=== PATIENT | female | born 1990 | race Caucasian/White ===

== ENCOUNTER → 2020-11-10 11:46 | Outpatient (CLI) | payer OTHER, SELFPAY | PROVIDERS: Referring Provider Specialist; Visit Provider Specialist | DX: N97.0 Female infertility associated with anovulation (principal) | CPT/HCPCS: 36415; 84144 ==

== ENCOUNTER → 2021-10-20 12:39 | Outpatient (CLI) | payer OTHER, SELFPAY ==
--- NOTE | 2021-10-20 12:39 | DI.RAD.S_ITS ---
PROCEDURE: HL HYSTEROSAPINGOGRAPHY INDICATIONS: Infertility COMPARISON: None. FINDINGS: Patient had a documented negative test prior to the study. Following speculum insertion, a balloon-tip catheter was inserted into the cervical canal, and secured by inflating the balloon. Contrast was then injected into the endometrial canal. Uterus: The uterine cavity appears normal in size and morphology, without synechiae or masses. Fallopian tubes: Both fallopian tubes fill with contrast, and appear normal in caliber and morphology. There is ready dispersion of contrast into the peritoneal cavity. IMPRESSION: Normal examination. Dictated by: Laura Jara MD, PhD on 10/20/2021 at 14:19 Approved by: Laura Jara MD, PhD on 10/20/2021 at 14:20
--- NOTE | 2021-10-20 13:21 | PM.PROC.1 ---
Procedures Date/Time Date of procedure: 10/20/21 Time of procedure: 13:22 General Procedure description: Procedure: Hysterosalpingogram Patient is to undergo a hysterosalpingogram for infertility. The procedure was discussed, risks discussed, infection or reaction to the dye contrast. Consent form signed. The patient was placed on an over turned bed gamble and a speculum placed in the vagina. The cervix was cleaned with iodine. The infusion catheter was placed through the cervix into the uterus without difficulty and the balloon inflated with 2 cc of air. With the radiologist's doing fluoroscopy the dye contrast was injected, approximately 10 cc. The catheter was removed. The patient tolerated the procedure well. Complications: none
== END ==
PROVIDERS: PCP Registered Nurse Diabetes Educator; Referring Provider Specialist; Visit Provider Specialist
DX: N97.9 Female infertility, unspecified (principal)
CPT/HCPCS: 58340; 74740

== ENCOUNTER → 2021-12-06 09:00 | Outpatient (CLI) | payer OTHER, SELFPAY ==
--- NOTE | 2021-12-06 09:01 | DI.ECHO.S_ITS ---
[facility] +---------+ : : [address] : [place] : : : : [id number] : : : : Phone: [phone] Echocardiogram Report + + :Name: PALLAVI RUEDA Study Date: 12/06/2021 Height: 61.5 in: :[facility] ReadingLocation: Weight: 163 lb : : Gender: Female BSA: 1.7 m2 : :: 1990 Age: 31 yrs BP: 125/86 mmHg: :Reason For Study: RE-EVAL MVP (5 YEAR SURVEILLANCE ECHO) : :Ordering Physician: CLIFFORD, : :HIMA Performed By: Brit Christian : :Referring: HIMA HORTON : + + Interpretation Summary The ejection fraction is estimated to be 60-65%. Diastolic parameters suggest probable normal left ventricular diastolic function and normal filling pressures. The right ventricle is normal in size and function. Mitral valve is normal without evidence of prolapse. Unable to estimate PASP. Procedure: A two-dimensional transthoracic echocardiogram with color flow and Doppler was performed. The study quality was technically adequate. There is no prior echocardiogram noted for this patient. The patient was in sinus rhythm with heart rates between 60-75 bpm during the exam. Left Ventricle: The left ventricle is normal in size and wall thickness. The ejection fraction is estimated to be 60-65%. Diastolic parameters suggest probable normal left ventricular diastolic function and normal filling pressures. Right Ventricle: The right ventricle is normal in size and function. Atria: The left atrial size is normal. Right atrial size is normal. There is no Doppler evidence for an interatrial shunt. Mitral Valve: The mitral valve is normal. There is trace mitral regurgitation. Aortic Valve: The aortic valve is trileaflet. The aortic valve opens well. There is no aortic valve stenosis. No aortic regurgitation is present. Tricuspid Valve: The tricuspid valve is normal in structure and function. There is a trace or physiologic amount of tricuspid regurgitation. Pulmonic Valve: The pulmonic valve leaflets are thin and pliable; valve motion is normal. There is mild pulmonic regurgitation. Great Vessels: The aortic root is normal size. The dimensions of the ascending aorta are normal. The IVC is of normal diameter and collapses greater than 50% with a sniff. This suggests a low right atrial pressure of 3 mm Hg. Pericardium/ Pleura There is no pericardial effusion. There is no pleural effusion. MMode/2D Measurements & Calculations LVIDd: 4.6 cm LVOT diam: 1.9 cm LVIDs: 2.7 cm Ao root diam: 2.6 cm FS: 40.6 % asc Aorta Diam: 2.7 cm IVSd: 0.55 cm Ao Arch Diam (Prox Trans): 2.6 cm LVPWd: 0.60 cm LV peters. diameter/BSA (cm/m^2): 2.7 LV sys. diameter/BSA (cm/m^2): 1.6 LA A2 area: 17.1 cm2 RA long axis: 4.2 cm LA A4 area: 15.4 cm2 RA area: 12.8 cm2 LA length (vol): 5.2 cm RA vol: 32.8 ml LA vol: 42.7 ml RA : 18.8 ml/m2 LA vol index: 24.5 ml/m2 IVC diam: 1.2 cm RVD1 (basal): 3.5 cm RVD2 (mid): 2.5 cm TAPSE: 1.8 cm Doppler Measurements & Calculations Ao V2 max: 167.5 cm/sec LVOT Max Eugenio: 97.4 cm/sec Ao V2 mean: 109.6 cm/sec LV V1 max P.8 mmHg Ao max P.2 mmHg LV V1 VTI: 19.2 cm Ao mean P.5 mmHg NOA(I,D): 1.6 cm2 Ao V2 VTI: 33.0 cm NOA(V,D): 1.6 cm2 sev ratio: 0.58 NOA indexed to BSA (cm^2/m^2): 0.90 MV E max eugenio: 94.4 cm/sec PA V2 max: 105.0 cm/sec MV A max eugenio: 45.0 cm/sec PA V2 mean: 73.3 cm/sec MV E/A: 2.1 PA mean P.4 mmHg Med Peak E' Eugenio: 10.9 cm/sec PA pr(Accel): 8.8 mmHg E/E' med: 8.7 Lat Peak E' Eugenio: 16.4 cm/sec E/E' lat: 5.8 E/e' average: 7.2 MV dec time: 0.17 sec SV(LVOT): 51.8 ml Reading Physician:11:42 AM
== END ==
PROVIDERS: PCP Registered Nurse Diabetes Educator; Referring Provider Registered Nurse Diabetes Educator; Visit Provider Registered Nurse Diabetes Educator
DX: I34.1 Nonrheumatic mitral (valve) prolapse (principal)
CPT/HCPCS: 93306

== ENCOUNTER → 2021-12-13 17:26 | Outpatient (CLI) | payer OTHER, SELFPAY ==
[2021-12-13 17:54] LABS: Add Manual Diff / Slide Review NO; Basophils Absolute Auto 0 /uL (0-100); Basophils Percent Auto 0.4 % (0-2); Eosinophils Absolute Auto 0 /uL (0-450); Eosinophils Percent Auto 0.2 % (2-4); Hematocrit 37.7 % (36-46); Hemoglobin 13.1 g/dL (12.0-16.0); Lymphocytes Absolute Auto 2500 /uL (1100-4500); Lymphocytes Percent Auto 22.3 % (25-40); Mean Corpuscular HGB Conc 34.8 % (30-36); Mean Corpuscular Hemoglobin 30.9 PG (26-34); Mean Corpuscular Volume 88.6 fL (80-100); Monocytes Absolute Auto 600 /uL (0-900); Monocytes Percent Auto 5.5 % (3-14); Neutrophils Absolute Auto 8200 /uL (1500-7000); Neutrophils Percent Auto 71.6 % (50-75); Platelet Count 271 X10^3/uL (150-400); Red Blood Cell Count 4.25 X10^6/uL (4.0-5.2); White Blood Cell Count 11.4 X10^3/uL (4.5-11.0)
[2021-12-13 19:01] LABS: HCG Quantitative /Beta subunit 97319 mIU/mL
[2021-12-14 05:53] LABS: RPR Screen Non Reactive (Non Reactive)
[2021-12-14 11:25] LABS: Varicella IgG Antibody 953 index (Immune >165)
[2021-12-14 16:46] LABS: Hepatitis B Surface Antigen NEGATIVE s/c (NEGATIVE); Rubella Antibody IgG 5.4 IU/mL (>15)
[2021-12-14 17:04] LABS: HIV 1 & 2 Ab/Ag 4th Gen Combo NEGATIVE (NEGATIVE); Hep C Virus Ab w/Reflex Quant NEGATIVE s/c (NEGATIVE)
== END ==
PROVIDERS: PCP Registered Nurse Diabetes Educator; Referring Provider Family Medicine; Visit Provider Family Medicine
DX: O20.9 Hemorrhage in early pregnancy, unspecified (principal); Z87.59 Personal history of other complications of pregnancy, childbirth and the puerperium
CPT/HCPCS: 36415; 80055; 84702; 86787; 86803; 86850; 86900; 86901; 87389

== ENCOUNTER → 2021-12-15 08:32 | Outpatient (CLI) | payer OTHER, SELFPAY ==
[2021-12-15 09:40] LABS: Appearance Urine UA CLOUDY; Bilirubin Urine UA NEGATIVE (NEGATIVE); Color Urine UA YELLOW; Glucose Urine UA NEGATIVE (Negative); Ketones Urine UA NEGATIVE (NEGATIVE); Leukocyte Esterase Urine UA TRACE (NEGATIVE); Nitrite Urine UA NEGATIVE (Negative); Occult Blood Urine UA TRACE-LYSED (Negative); Protein Urine UA NEGATIVE (Negative); Specific Gravity Urine UA 1.015 (1.000-1.035); Urobilinogen Urine UA 0.2 E.U./dL (0.2)
[2021-12-15 09:50] LABS: Amorphous Sediment Urine 3+; Bacteria Urine None Seen; RBC Urine 0-1/HPF (0-5/HPF); WBC Urine 0-1/HPF (0-5/HPF)
[2021-12-15 10:50] LABS: HCG Quantitative /Beta subunit 109790 mIU/mL
== END ==
PROVIDERS: PCP Registered Nurse Diabetes Educator; Referring Provider Family Medicine; Visit Provider Family Medicine
DX: O20.0 Threatened abortion (principal)
CPT/HCPCS: 36415; 81003; 81015; 84702; 87086

== ENCOUNTER 2021-12-16 11:26 | Emergency (ER) | payer OTHER, SELFPAY ==
[2021-12-16 11:36] VITALS: BP 124/83; PULSE 81; RESP 16; TEMP 36.7; O2SAT 98; BMI 30.2
--- NOTE | 2021-12-16 11:45 | DI.US.S_ITS ---
PROCEDURE: US OB <= 14 WEEKS FETUS INDICATIONS: BLEEDING OUTSIDE/PRIOR DATING DATA: Last menstrual period (LMP): 10/19/2021. LMP-based estimated date of delivery (YADY): 07/26/2022. First dating scan (date and location): 12/16/2021. Estimated date of delivery (YADY) from first dating scan: 07/25/2022. The calculations are made using the ultrasound YADY of 07/25/2022. TECHNIQUE: Real-time scanning was performed of the fetus and maternal pelvic organs, with image documentation. Endovaginal scanning was also performed to better visualize the fetus and maternal ovaries. COMPARISON: None. FINDINGS: Embryo: An early intrauterine is seen with a yolk sac present. heart rate is 169. [place]-rump length is 1.9 cm corresponding with 8 weeks 3 days. There is a subchorionic hemorrhage measuring 1.4 x 0.4 x 1.4 cm. Heart rate: 169 beats per minute Maternal organs: The right ovary is normal. The left ovary has a corpus luteal cyst. IMPRESSION: 1. Single live intrauterine with an estimated gestational age of 8 weeks 3 days. 2. 1.4 x 0.4 x 1.4 centimeter subchorionic hemorrhage. We strive to produce accurate, complete, and clear reports of imaging services. To assist us in improving patient care, this report was composed using standard report templates and voice recognition software. Therefore, it may contain abnormal punctuation, insertions and/or omissions. Occasional wrong-word or sound-alike substitutions may occur. Though we review the report and make efforts to correct it, we do recommend that the report be read carefully in proper context to recognize any text inaccuracies. Dictated by: Salvador Villatoro M.D. on 12/16/2021 at 12:11 Approved by: Salvador Villatoro M.D. on 12/16/2021 at 12:14
[2021-12-16 12:15] LABS: Add Manual Diff / Slide Review NO; Basophils Absolute Auto 0 /uL (0-100); Basophils Percent Auto 0.2 % (0-2); Eosinophils Absolute Auto 0 /uL (0-450); Eosinophils Percent Auto 0.2 % (2-4); Hematocrit 36.9 % (36-46); Lymphocytes Absolute Auto 2000 /uL (1100-4500); Lymphocytes Percent Auto 19.6 % (25-40); Mean Corpuscular HGB Conc 35.1 % (30-36); Mean Corpuscular Hemoglobin 31.4 PG (26-34); Mean Corpuscular Volume 89.3 fL (80-100); Monocytes Absolute Auto 500 /uL (0-900); Monocytes Percent Auto 5.4 % (3-14); Neutrophils Absolute Auto 7500 /uL (1500-7000); Neutrophils Percent Auto 74.6 % (50-75); Platelet Count 242 X10^3/uL (150-400); Red Blood Cell Count 4.13 X10^6/uL (4.0-5.2); Red Cell Distribution Width 13.1 % (11.6-14.8)
[2021-12-16 12:25] LABS: Alanine Aminotransferase 20 IU/L (<35); Albumin 4.2 g/dL (3.5-5.0); Albumin Globulin Ratio 1.5 (1.0-2.8); Alkaline Phosphatase 56 U/L (38-126); Aspartate Aminotransferase 22 IU/L (14-36); BUN Creatinine Ratio 12.7 (6-22); Bilirubin Total 0.6 mg/dL (0.2-1.3); Blood Urea Nitrogen 8 mg/dL (7-17); Calcium 8.6 mg/dL (8.4-10.2); Carbon Dioxide 24 mmol/L (22-32); Chloride 105 mmol/L (98-107); Estimated Glomerular Filt Rate > 60 mL/min (>60); Globulin 2.8 g/dL (1.7-4.1); Glucose 130 mg/dL (70-100); HEMOLYSIS < 15 (0-50); Potassium 3.8 mmol/L (3.4-5.1); Sodium 136 mmol/L (137-145)
[2021-12-16 13:07] LABS: HCG Quantitative /Beta subunit 103810 mIU/mL
--- NOTE | 2021-12-16 13:09 | ED.PREGNANCY ---
HPI - General Chief complaint: OB/Uterine Contractions Stated complaint: 8 & 1/2 weeks cramping & spotting Time Seen by Provider: 12/16/21 11:35 Source: patient Mode of arrival: Ambulatory History of Present Illness HPI Narrative: Patient is a 31-year-old female [id number] presents today currently developed some bleeding. She actually had bleeding 2 days ago was seen by her OB she said bleeding stopped yesterday she had blood work done at that time then last night started having some mild again. She has been nauseous but not severely no significant vomiting. No other issues at this time. Related Data Home Medications Medication Instructions Recorded Confirmed docosahexaenoic acid 200 mg mg PO 10/27/20 10/10/21 capsule ( DHA) PNV cmb#95-ferrous fumarate-FA PO 10/10/21 10/10/21 [ Multivitamins] Lactobacillus rhamnosus GG 20 1 cell PO DAILY 11/22/21 11/22/21 billion cell capsule (Probiotic Digestive Care) loratadine 10 mg tablet (Allergy 10 mg PO DAILY 11/22/21 11/22/21 Relief (loratadine)) melatonin 5 mg tablet 5 mg PO BEDTIME PRN 11/22/21 11/22/21 vitamin B complex (B 1 tab PO DAILY 11/22/21 11/22/21 Complex-Vitamin B12 tablet) Allergies Allergy/AdvReac Type Severity Reaction Status Date / Time No Known Drug Allergies Allergy Unverified 12/16/21 11:41 Review of Systems Review of Systems Narrative: GENERAL: Denies chills, fatigue, malaise, fever, sweats, travel HEENT: Denies sinus pain, ear pain, sore throat, difficulty swallowing, neck pain RESPIRATORY: Denies dyspnea, cough, wheezing, hemoptysis, sputum. CARDIOVASCULAR: Denies chest pain, palpitations, orthopnea, edema GASTROINTESTINAL: Denies nausea, vomiting, abdominal pain, diarrhea, constipation, melena. : Denies dysuria, frequency, incontinence, hematuria, urinary retention, flank pain. MACHINE TURNER: See HPI MUSCULOSKELETAL: Denies weakness, joint pain, or bony pain SKIN: No rash, no erythema, no pruritus NEUROLOGIC: Denies weakness, dizziness, headache, numbness, change in speech, confusion PSYCHIATRIC: No concerning psychosocial issues. 12 point review of systems is negative except for those stated above and HPI Exam Initial Vital Signs Initial Vital Signs: Vital Signs Temperature 98.0 F 12/16/21 11:36 Pulse Rate 81 12/16/21 11:36 Respiratory Rate 16 12/16/21 11:36 Blood Pressure 124/83 12/16/21 11:36 Pulse Oximetry 98 12/16/21 11:36 Oxygen Delivery Method 12/16/21 11:36 GENERAL: Alert pleasant 31-year-old female and in no acute distress. HEENT: Head atraumatic,EOMI, pupils reactive, face symmetric, moist mucous membranes CARDIOVASCULAR: Regular rate and rhythm without murmurs, rubs or gallops. RESPIRATORY: Breath sounds equal bilaterally, no wheezes rales or rhonchi. ABDOMEN: Soft, nontender. Normoactive bowel sounds all 4 quadrants. No guarding or rebound. EXTREMITIES: Normal range of motion, no clubbing or edema. Neurovascularly intact NEUROLOGICAL: Alert and oriented x4. SKIN: Warm, dry, no laceration, no petechiae, no rashes or lesions. Course Orders Ordered: ED Orders 12/16/21 11:45 OB <= 14 weeks fetus Stat 12/16/21 12:03 ABO RH Type Stat Complete Blood Count AUTO DIFF Stat Comprehensive Metabolic Panel Stat HCG Quantitative /Beta subunit Stat Discontinued Medications Rho Immune Globulin (Rho(D) Immune Globulin 1,500 Unit Syringe) 1,500 unit IM NOW ONE Stop: 12/16/21 13:37 Last Admin: 12/16/21 13:53 Dose: 1,500 unit Documented By: [facility] Vital Signs Vital signs: Vital Signs - 8 hr 12/16/21 11:36 12/16/21 14:02 Temperature 98.0 F Pulse Rate 81 84 Respiratory Rate 16 12 Blood Pressure 124/83 120/82 Pulse Oximetry 98 99 Oxygen Delivery Method Room Air Room Air MDM - OB/Uterine Contractions Lab Data Result diagrams: 12/16/21 12:03 12/16/21 12:03 Labs: Lab Results 12/16/21 12/16/21 12/16/21 Range/Units 12:03 12:03 12:03 WBC 10.0 (4.5-11.0) X10^3/uL RBC 4.13 (4.0-5.2) X10^6/uL Hgb 13.0 (12.0-16.0) g/dL Hct 36.9 (36-46) % MCV 89.3 (80-100) fL MCH 31.4 (26-34) PG MCHC 35.1 (30-36) % RDW 13.1 (11.6-14.8) % Plt Count 242 (150-400) X10^3/uL Neut % (Auto) 74.6 (50-75) % Lymph % (Auto) 19.6 L (25-40) % [place] % (Auto) 5.4 (3-14) % Eos % (Auto) 0.2 L (2-4) % Baso % (Auto) 0.2 (0-2) % Neut # (Auto) 7500 H (9844-5452) /uL Lymph # (Auto) 2000 (3495-1700) /uL [place] # (Auto) 500 (0-900) /uL Eos # (Auto) 0 (0-450) /uL Baso # (Auto) 0 (0-100) /uL Sodium 136 L (137-145) mmol/L Potassium 3.8 (3.4-5.1) mmol/L Chloride 105 (98-107) mmol/L Carbon Dioxide 24 (22-32) mmol/L BUN 8 (7-17) mg/dL Creatinine 0.63 (0.52-1.04) mg/dL Estimated GFR > 60 (>60) mL/min BUN/Creatinine Ratio 12.7 (6-22) Glucose 130 H (70-100) mg/dL Calcium 8.6 (8.4-10.2) mg/dL Total Bilirubin 0.6 (0.2-1.3) mg/dL AST 22 (14-36) IU/L ALT 20 (<35) IU/L Alkaline Phosphatase 56 (38-126) U/L Total Protein 7.0 (6.3-8.2) g/dL Albumin 4.2 (3.5-5.0) g/dL Globulin 2.8 (1.7-4.1) g/dL Albumin/Globulin Ratio 1.5 (1.0-2.8) HCG, Quant 296704 mIU/mL Blood Type B Negative Imaging Data US - MACHINE TURNER: Radiologist's Impression: Signed Patient: Shaunna Lipscomb MR#: [id number] : 1990 Acct:[id number] Age/Sex: 31 / F Date of Service: 12/16/21 Loc: Accession Number: [id number] ?? Procedure: US OB <= 14 weeks fetus Ordering Provider: Mercedes Gonzalez D.O. PROCEDURE:? US OB <= 14 WEEKS FETUS ? INDICATIONS:? BLEEDING ? OUTSIDE/PRIOR DATING DATA:? Last menstrual period (LMP):? 10/19/2021.? LMP-based estimated date of delivery (YADY):? 07/26/2022.? First dating scan (date and location):? 12/16/2021.? Estimated date of delivery (YADY) from first dating scan:? 07/25/2022. The calculations are made using the ultrasound YADY of 07/25/2022. ? TECHNIQUE:? Real-time scanning was performed of the fetus and maternal pelvic organs, with image documentation.? Endovaginal scanning was also performed to better visualize the fetus and maternal ovaries.? ? COMPARISON:? None. ? FINDINGS:? ? Embryo:? An early intrauterine is seen with a yolk sac present.? heart rate is 169. [place]-rump length is 1.9 cm corresponding with 8 weeks 3 days.? There is a subchorionic hemorrhage measuring 1.4 x 0.4 x 1.4 cm. ? Heart rate:? 169 beats per minute ? Maternal organs:? The right ovary is normal.? The left ovary has a corpus luteal cyst. ? ? IMPRESSION:? 1. Single live intrauterine with an estimated gestational age of 8 weeks 3 days. 2. 1.4 x 0.4 x 1.4 centimeter subchorionic hemorrhage.? ? We strive to produce accurate, complete, and clear reports of imaging services. To assist us in improving patient care, this report was composed using standard report templates and voice recognition software. Therefore, it may contain abnormal punctuation, insertions and/or omissions. Occasional wrong-word or sound-alike substitutions may occur. Though we review the report and make efforts to correct it, we do recommend that the report be read carefully in proper context to recognize any text inaccuracies. ? Dictated by: Salvador Villatoro M.D. on 12/16/2021 at 12:11 ? ? MDM Narrative Medical decision making narrative: HCG is down slightly. Ultrasound does show a subchorionic hemorrhage is a healthy IUP at 8 weeks and 3 days. She is found to be Rh be negative. Dr. Oh, OB on-call does recommend RhoGam at this time. Patient overall reassured and discussed signs and symptoms and when to return. Discharge Plan Departure Patient Disposition: Home Clinical Impression: Subchorionic hemorrhage in first trimester Instructions: Early Bleeding Activity Restrictions/Additional Instructions: [id number] *You have been diagnosed with subchorionic hemorrhage *What to do: You do have 8 week 3 day fetus, he have some small amount of bleeding. I suspect that this stops. I recommend pelvic rest. HCG is slightly lower today than previously please follow-up with Ob *Continue to take medications as directed *Follow up with your primary care provider in 2-3 days or call [phone] Raphael for close follow-up *Return to ER if you should have increased bleeding, large blood pain or any new, worsening or concerning symptoms Prescriptions: No Action DHA 200 mg capsule PO PNV cmb#95-ferrous fumarate-FA [ Multivitamins] PO vitamin B complex [B Complex-Vitamin B12] Tablet 1 tab PO DAILY melatonin 5 mg tablet 5 mg PO BEDTIME PRN loratadine [Allergy Relief (loratadine)] 10 mg tablet 10 mg PO DAILY Probiotic Digestive Care 20 billion cell capsule 1 cell PO DAILY Referrals: Roxann Raphael MD [Physician] - Riky Barney ARNP [Primary Care Provider] - Visit Report Forms: Patient Portal/API
[2021-12-16] MEDS: RHO(D) IMMUNE GLOBULIN 1,500 UNIT SYRINGE 1500 UNIT IM (13:53)
[2021-12-16 14:02] VITALS: BP 120/82; PULSE 84; RESP 12; O2SAT 99
== END 2021-12-16 14:02 | disposition home or self-care (01) ==
PROVIDERS: Emergency Provider Emergency Medicine; PCP Registered Nurse Diabetes Educator
DX: O41.8X10 Other specified disorders of amniotic fluid and membranes, first trimester, not applicable or unspecified (principal); Z3A.08 8 weeks gestation of pregnancy
CPT/HCPCS: 76801; 76817; 80053; 84702; 85025; 86900; 86901; 96372; 99283; 99284; J2790

== ENCOUNTER → 2021-12-20 11:14 | Outpatient (CLI) | payer OTHER, SELFPAY ==
[2021-12-20 12:45] LABS: HCG Quantitative /Beta subunit 108990 mIU/mL
== END ==
PROVIDERS: PCP Registered Nurse Diabetes Educator; Referring Provider Family Medicine; Visit Provider Family Medicine
DX: O20.9 Hemorrhage in early pregnancy, unspecified (principal); Z87.59 Personal history of other complications of pregnancy, childbirth and the puerperium; Z3A.09 9 weeks gestation of pregnancy
CPT/HCPCS: 36415; 84702

== ENCOUNTER → 2022-02-09 10:47 | Outpatient (CLI) | payer OTHER, SELFPAY ==
[2022-02-12 22:08] LABS: AFP, Serum 31.6 ng/mL (.); Estriol, Free 1.22 ng/mL (.); Inhibin A, Dimeric 166.97 pg/mL (.); Inhibin A, MoM 1.12 (.); Maternal Ethnicity Caucasian (.); Maternal Weight 164 lbs (.); Number of Fetuses No (.); OSBR Risk 1 IN 10000 (.); Results Report (.); Test Results *Screen Negative* (.); hCG, MoM 2.24 (.); hCG, Serum 65400 mIU/mL (.)
== END ==
PROVIDERS: PCP Registered Nurse Diabetes Educator; Referring Provider Family Medicine; Visit Provider Family Medicine
DX: Z34.90 Encounter for supervision of normal pregnancy, unspecified, unspecified trimester (principal); Z3A.16 16 weeks gestation of pregnancy
CPT/HCPCS: 36415; 82105; 82677; 84702; 86336

== ENCOUNTER → 2022-03-02 09:14 | Outpatient (CLI) | payer OTHER, SELFPAY ==
--- NOTE | 2022-03-02 09:16 | DI.US.S_ITS ---
PROCEDURE: US OB >= 14 WEEKS FETUS INDICATIONS: Anatomy screen OUTSIDE/PRIOR DATING DATA: Last menstrual period (LMP): 10/19/2021 LMP-based estimated date of delivery (YADY): 07/26/2022 First dating scan (date and location): 12/16/2021 Estimated date of delivery (YADY) from first dating scan: 07/25/2022 The calculations are made using the study generated YADY of 07/25/2022 TECHNIQUE: Real-time scanning was performed of the fetus, with image documentation and biometric measurements. Endovaginal scanning: Not indicated COMPARISON: [facility], OB <= 14 WEEKS FETUS, 12/16/2021, 12:13. FINDINGS: General: A single living intrauterine gestation is present. Presentation: Breech Placenta: Placental position is anterior, without previa. Amniotic fluid index: 12 cm, normal range is 5-24 cm. Single deepest vertical pocket is 3.8 cm. heart rate: 149 beats per minute. Maternal cervical canal: 3.6 cm long. Normal lower limit is 2.5 cm. biometrics: Biparietal diameter: 4.1 cm, 18 weeks, 3 days Head circumference: 16.4 cm, 19 weeks, 1 day. Abdominal circumference: 14 cm, 19 weeks, 3 days Femur length: 3 cm, 19 weeks, 1 day. Clinically estimated gestational age: 19 weeks, 1 day. Composite gestational age from present scan: 19 weeks, 0 day. Estimated weight and percentile: 282 g, 52%. Anatomic survey: Neuro: Ventricles are non-dilated at less than 10 mm. Cisterna magna is normal at 3-11 mm. Cerebellum is normal in size and morphology. Nuchal skin fold: Normal at less than 6 mm between 14-21 weeks gestational age. Face: Nose and lips, facial profile are not well seen on this study. Spine: No evidence for spina bifida. Heart: 4-chambered heart is present. Outflow tracts are not well seen on this study. Diaphragm: Diaphragm is intact. Stomach: Left-sided stomach is present. Kidneys: No hydronephrosis. Normal is less than 5 mm in 2nd trimester, less than 7 mm in 3rd trimester. Cord: 3-vessel cord has orthotopic insertion. Bladder: Normal in size. Extremities: All 4 extremities identified. Suggestion of venous Carter is noted in right side of placenta measures 5.5 x 2.1 x 2.5 cm in size. IMPRESSION: 1. Single live intrauterine gestation with fetus in breech presentation. heart rate is 149 beats per minute. Normal amount of amniotic fluid. Estimated weight is at 52%. 2. Possible venous Carter in right side of facet as above. 3. facial profile is and outflow tracts are not well seen on this study due to position. Rest of the anatomic survey is normal. We strive to produce accurate, complete, and clear reports of imaging services. To assist us in improving patient care, this report was composed using standard report templates and voice recognition software. Therefore, it may contain abnormal punctuation, insertions and/or omissions. Occasional wrong-word or sound-alike substitutions may occur. Though we review the report and make efforts to correct it, we do recommend that the report be read carefully in proper context to recognize any text inaccuracies. Dictated by: Carlton Gibson M.D. on 03/02/2022 at 12:10 Approved by: Carlton Gibson M.D. on 03/02/2022 at 12:14
== END ==
PROVIDERS: PCP Registered Nurse Diabetes Educator; Referring Provider Family Medicine; Visit Provider Family Medicine
DX: O32.1XX0 Maternal care for breech presentation, not applicable or unspecified (principal); Z3A.20 20 weeks gestation of pregnancy
CPT/HCPCS: 76811

== ENCOUNTER → 2022-03-23 16:44 | Outpatient (CLI) | payer OTHER, SELFPAY ==
--- NOTE | 2022-03-23 16:45 | DI.US.S_ITS ---
PROCEDURE: US OB FOLLOW UP INDICATIONS: possible pooling of blood by placenta, facial profile unseen OUTSIDE/PRIOR DATING DATA: Last menstrual period (LMP): 10/19/2021. LMP-based estimated date of delivery (YADY): 07/26/2022. First dating scan (date and location): 12/16/2021. Estimated date of delivery (YADY) from first dating scan: 07/25/2022. The calculations are made using the ultrasound YADY of 07/25/2022. TECHNIQUE: Real-time scanning was performed of the fetus, with image documentation. COMPARISON: [facility], , US OB >= 14 WEEKS FETUS, 03/02/2022, 9:29. FINDINGS: General: A single living intrauterine gestation is present. Presentation: Breech. Placenta: Placental position is anterior, without previa. Amniotic fluid index: 12.6 cm, normal range is 5-24 cm. Single deepest vertical pocket is 4.2 cm. heart rate: 141 beats per minute. Maternal cervical canal: 4.1 cm long. Normal lower limit is 2.5 cm. Clinically estimated gestational age: 22 weeks 2 days Other: Outflow tracks are not well seen. Hypoechoic region near the right placenta measuring 3.5 x 1.7 x 1.3 cm (previously 5.5 x 2.5 x 2.1 cm). nose and lips and profile are normal in appearance IMPRESSION: 1. Castro living intrauterine at 22 weeks 2 days based on today's ultrasound. This is concordant with the prior ultrasound. There is expected interval growth. 2. Normal amniotic fluid. Suspected placental Carter is mildly decreased in size. 3. nose and lips and profile are normal. cardiac outflow tracks are again not seen. Recommend follow-up OB ultrasound. We strive to produce accurate, complete, and clear reports of imaging services. To assist us in improving patient care, this report was composed using standard report templates and voice recognition software. Therefore, it may contain abnormal punctuation, insertions and/or omissions. Occasional wrong-word or sound-alike substitutions may occur. Though we review the report and make efforts to correct it, we do recommend that the report be read carefully in proper context to recognize any text inaccuracies. Dictated by: Michael Jacobson M.D. on 03/23/2022 at 21:16 Approved by: Michael Jacobson M.D. on 03/23/2022 at 21:21
== END ==
PROVIDERS: PCP Registered Nurse Diabetes Educator; Referring Provider Family Medicine; Visit Provider Family Medicine
DX: O41.8X10 Other specified disorders of amniotic fluid and membranes, first trimester, not applicable or unspecified (principal); O46.8X2 Other antepartum hemorrhage, second trimester; Z3A.22 22 weeks gestation of pregnancy
CPT/HCPCS: 76816

== ENCOUNTER → 2022-04-11 11:11 | Outpatient (CLI) | payer OTHER, SELFPAY ==
[2022-04-11 12:57] LABS: Add Manual Diff / Slide Review NO; Basophils Absolute Auto 0 /uL (0-100); Basophils Percent Auto 0.2 % (0-2); Eosinophils Absolute Auto 0 /uL (0-450); Eosinophils Percent Auto 0.1 % (2-4); Hematocrit 32.9 % (36-46); Hemoglobin 11.5 g/dL (12.0-16.0); Lymphocytes Absolute Auto 1800 /uL (1100-4500); Lymphocytes Percent Auto 12.7 % (25-40); Mean Corpuscular HGB Conc 34.8 % (30-36); Mean Corpuscular Hemoglobin 30.9 PG (26-34); Mean Corpuscular Volume 88.8 fL (80-100); Monocytes Absolute Auto 700 /uL (0-900); Monocytes Percent Auto 4.9 % (3-14); Neutrophils Absolute Auto 11500 /uL (1500-7000); Neutrophils Percent Auto 82.1 % (50-75); Platelet Count 214 X10^3/uL (150-400); Red Blood Cell Count 3.71 X10^6/uL (4.0-5.2); Red Cell Distribution Width 13.5 % (11.6-14.8)
[2022-04-11 13:13] LABS: GTT (PREG) 1 Hour PP 50gm Dose 199 mg/dL (76-139)
== END ==
PROVIDERS: PCP Registered Nurse Diabetes Educator; Referring Provider Family Medicine; Visit Provider Family Medicine
DX: Z34.92 Encounter for supervision of normal pregnancy, unspecified, second trimester (principal); Z3A.25 25 weeks gestation of pregnancy; Z67.21 Type B blood, Rh negative
CPT/HCPCS: 36415; 82950; 85025; 86850

== ENCOUNTER → 2022-04-16 09:02 | Outpatient (CLI) | payer OTHER, SELFPAY ==
--- NOTE | 2022-04-16 09:03 | DI.US.S_ITS ---
PROCEDURE: US OB FOLLOW UP INDICATIONS: F/U VENOUS ROBERTSON, OUTFLOW TRACS OUTSIDE/PRIOR DATING DATA: Last menstrual period (LMP): October 19, 2021. LMP-based estimated date of delivery (YADY): July 26, 2022. First dating scan (date and location): December 16, 2021. [facility]. Estimated date of delivery (YADY) from first dating scan: July 25, 2022. TECHNIQUE: Real-time scanning was performed of the fetus, with image documentation and biometric measurements. COMPARISON: [facility], US, OB FOLLOW UP, 03/23/2022, 16:56. FINDINGS: General: A single living intrauterine gestation is present. Presentation: Breech/oblique. Placenta: Placental position is anterior, without previa. There is a 3.5 x 1.3 x 1.7 cm hypoechoic region within the placenta which is unchanged from the ultrasound dated March 23, 2022. Amniotic fluid index: 12.6 cm, normal range is 5-24 cm. Single deepest vertical pocket is 4.2 cm. heart rate: 141 beats per minute. Maternal cervical canal: 4.1 cm long. Normal lower limit is 2.5 cm. Clinically estimated gestational age: 22 weeks, 2 days Other: The facial profile, nose/lips have a normal appearance. Four-chamber heart has a normal appearance. The outflow tracts are not well characterized. IMPRESSION: 1. Facial profile and nose/lips are unremarkable. 2. cardiac outflow tracts are not well characterized on the current study given lie. 3. Stable appearance of a focal a vascular hypoechoic focus along the maternal aspect of the placenta suggesting a placental venous robertson. We strive to produce accurate, complete, and clear reports of imaging services. To assist us in improving patient care, this report was composed using standard report templates and voice recognition software. Therefore, it may contain abnormal punctuation, insertions and/or omissions. Occasional wrong-word or sound-alike substitutions may occur. Though we review the report and make efforts to correct it, we do recommend that the report be read carefully in proper context to recognize any text inaccuracies. Dictated by: Janet Penny M.D. on 04/16/2022 at 10:23 Approved by: Janet Penny M.D. on 04/16/2022 at 10:29
== END ==
PROVIDERS: PCP Registered Nurse Diabetes Educator; Referring Provider Family Medicine; Visit Provider Family Medicine
DX: Z36.2 Encounter for other antenatal screening follow-up (principal); Z3A.22 22 weeks gestation of pregnancy
CPT/HCPCS: 76816

== ENCOUNTER → 2022-04-25 14:19 | Outpatient (CLI) | payer OTHER, SELFPAY ==
--- NOTE | 2022-04-25 16:31 | DIAB.GDA ---
Initial Gestational Diabetes Assessment Name: Shaunna Lipscomb Date: 04/25/22 Time: 240-350p Dx: Gestational Diabetes Provider: Ijeoma YADY: 07/24/22 Weeks: 27 Shaunna presents for initial visit regarding new GDM dx. Endorses FH of GDM and T2DM with her mother. Shaunna works from home. Endorses grazing through the day prior to diagnosis. Has recently reduced carb intake significantly. Has h/o counting macronutrients and feels very comfortable carb counting using apps and food labels. Has a good base knowledge of GDM based on her own research. Discussed CDC recs and pathophysiology for GDM. Has questions regarding how to mange Thanksgiving meal as well. Diet Recall: 6-630a: low carb protein shake (5g CHO) 930-10a: eggs, avocado, tomatoes, +/- toast (0-15g CHO) 1p: leftovers or sandwich on low carb bread or wrap in low carb wrap (0-35g CHO) 2-3p: yogurt or cheese with 1.5c grapes (15-25g CHO) 6-7p: protein, veggies +/- 3/4c rice or pasta (0-40g CHO) Beverages: water x 72-96oz, cappuccino with whole milk, decap tea with whole milk or almond milk Anthropometrics: Ht: 61 Wt: 180 (04/11 last OB visit) Prepregnancy wt: 163# Physical Activity: 3 days per week of 30 min yoga or weights or walks Self-Monitoring Blood Glucose: Checking fasting and 2 hours after q meal and snack. Discussed FBG and 2 hour pc recommendations for meals only. 2/7 elevated FBG. 1/7 elevated pc breakfast, 2/7 elevated pc lunch and 3/6 elevated dinner. Seems some elevations are due to eating out portions. Others might be related to eating occurrences being very close together (1-2 hours). Date Pre Post Pre Post Pre Post HS 04/19 81 120 117 109 04/20 97 103 91 147 04/21 86 143 85 128 04/22 82 117 131 103 04/23 97 70 138 131 04/24 86 94 94 124 04/25 94 94 89 Diabetes Medications: None Pertinent Labs: Screen 199mg/dL Nutrition Rx: Carbohydrates: Daily: 175g Meal: 45-g lunch and dinner (min 30g per meal); 30g breakfast Snack: 30g Nutrition Diagnosis: Altered nutrition related lab value r/t GDM dx aeb recent screen Inconsistent CHO intake r/t nutrition knowledge deficit aeb diet recall and BG trends Suboptimal physical activity r/t stage of change aeb pt report Intervention: This participant was very receptive. Provided appropriate educational handouts. Discussed the following topics: GDM pathophysiology and impact of hyperglycemia on mom and baby Risk for T2DM for mom and baby in the future Ways to reduce risk T2DM Plate Method, meal timing, carb counting, pairing macronutrients and spreading out CHO for better BG management Blood glucose goals (FBG: <95 and 2 hour 100-120 mg/dL); importance of checking 4x per day (FBG and pc) Impact of macronutrients on blood glucose Recommended servings for carbohydrates at meals and snacks Brainstormed appropriate meal plan based on her food preferences Reviewed Holiday eating strategies: portions, physical activity, etc Role of physical activity and following provider guidelines for safety Goals: Aim for 30 minutes of walking or biking 3 days per week Aim for yoga 3x per week Aim for carb recs per meal Move afternoon snack to 330-4p Follow-up: JUSTIN HAWK follow-up in two weeks Monica Canas RDN, CARINE Certified Diabetes Care and Fire Prevention Chief T: [phone] F: [phone] [email or web address] Thank you for this referral
== END ==
PROVIDERS: PCP Registered Nurse Diabetes Educator; Referring Provider Family Medicine; Visit Provider Family Medicine
DX: O24.419 Gestational diabetes mellitus in pregnancy, unspecified control (principal); Z3A.27 27 weeks gestation of pregnancy; Z71.3 Dietary counseling and surveillance
CPT/HCPCS: 97802

== ENCOUNTER → 2022-05-08 12:16 | Outpatient (CLI) | payer OTHER, SELFPAY ==
--- NOTE | 2022-05-08 12:18 | DI.US.S_ITS ---
PROCEDURE: US OB FOLLOW UP INDICATIONS: RE-EVALUATE HEART OUTSIDE/PRIOR DATING DATA: Last menstrual period (LMP): 10/19/2021 LMP-based estimated date of delivery (YADY): 07/26/2022 First dating scan (date and location): 12/16/2021 Estimated date of delivery (YADY) from first dating scan: 07/25/2022 TECHNIQUE: Real-time scanning was performed of the fetus, with image documentation. Endovaginal scanning: Not performed. COMPARISON: [facility], , OB FOLLOW UP, 04/16/2022, 9:10. FINDINGS: A single living intrauterine gestation is present. Presentation: Vertex Placenta: Placental position is anterior, without previa. Amniotic fluid index: 19.4 cm cm, normal range is 5-24 cm. Single deepest vertical pocket is 5.8 cm. heart rate: 145 beats per minute. Maternal cervical canal: 3.6 cm long. Normal lower limit is 2.5 cm. Clinically estimated gestational age: 28 weeks 6 days Other: Four-chamber view of the heart appears normal. Right and left ventricular outflow tracts are within normal limits. Vascular hypoechoic focus measuring 6.5 x 1.5 x 1.0 cm along the maternal aspect of the placenta that is again suggestive of a venous gusman. IMPRESSION: 1. Single live intrauterine . 2. Four-chamber view of the heart and ventricular outflow tracts are within normal limits. 3. Hypoechoic focus along the maternal aspect of the placenta is again most likely a venous gusman. Approved by: Quan Olson M.D. on 05/08/2022 at 17:03
== END ==
PROVIDERS: PCP Registered Nurse Diabetes Educator; Referring Provider Family Medicine; Visit Provider Family Medicine
DX: Z36.2 Encounter for other antenatal screening follow-up; Z3A.28 28 weeks gestation of pregnancy
CPT/HCPCS: 76816

== ENCOUNTER → 2022-05-09 08:25 | Outpatient (CLI) | payer OTHER, SELFPAY ==
--- NOTE | 2022-05-11 17:06 | DIAB.GDFU ---
Follow-up Gestational Diabetes Assessment Name: Shaunna Lipscomb Date: 05/09/22 Time: 188-835y Dx: Gestational Diabetes Provider: Ijeoma YADY: 07/24/22 Weeks: 29 Shaunna presents for GDM follow-up. She has significantly adjusted her diet to 6-7 low carb eating occurrences to manage hyperglycemia. Additionally, she is exercising daily to try and manage BG but they are still elevated. States she really wanted to avoid medication to manage GDM, but with current BG seems likely that insulin therapy would be recommended. She is open to this. Reports any meal/snack over 35g of carbs results in a BG spike. Diet recall indicates <180g CHO daily, low for . Seems the hormones are driving BG up above goal. Shaunna is traveling next week. This RD will reach out to provider. Diet Recall: 6a: protein shake +/- fruit 830a: eggs, avocado or PB, grande, low carb toast 11a: protein bar or apple and pb or grapes and cheese 2p: salad with pro or low carb tortilla with pro and veggies 4p: same as 11a or low carb yogurt with granola 7p: meat and veggies +/- low carb bread or tortilla 9a: nothing or same as previous snacks Anthropometrics: Ht: 61 Wt: 182 (05/08 last OB visit) Prepregnancy wt: 163# Physical Activity: Exercising daily Self-Monitoring Blood Glucose: 5/7 elevated FBG, 2/6 elevated pc breakfast, 2/5 elevated pc lunch, and 3/5 elevated pc dinner. Checking FBG and 2 hour pc. Hyperglycemia despite very low carb diet and exercise. Date Pre Post Pre Post Pre Post HS 05/03 86 116 95 158 05/04 95 119 100 124 05/05 99 132 121 130 05/06 101 100 05/07 101 129 119 96 05/08 101 111 150 102 05/09 119 Diabetes Medications: None Pertinent Labs: Screen 199mg/dL Nutrition Rx: Carbohydrates: Daily: 175g Meal: 45-g lunch and dinner (min 30g per meal); 30g breakfast Snack: 30g Nutrition Diagnosis: Altered nutrition related lab value r/t GDM dx aeb recent screen Suboptimal physical activity r/t stage of change aeb pt report - improved Inadequate CHO intake r/t avoiding hyperglycemia aeb diet recall and pt report - new Intervention: This participant was very receptive. Provided appropriate educational handouts. Discussed the following topics: Recent blood sugar results and impact of hormones. Understanding this is not a reflection on her efforts to manage BG Medications used for hyperglycemia in Review of macronutrient recommendations during The progress she has made with exercise Goals: Aim for 30 minutes of walking or biking 3 days per week- met Aim for yoga 3x per week- met Aim for carb recs per meal- in progress Move afternoon snack to 330-4p- in progress Contact provider if you do not hear about med recs by Saturday (before leaving for trip)- new Follow-up: JUSTIN HAWK follow-up in two weeks. This JUSTIN/CARINE will message provider today with BG for consideration for medication management. Shaunna would likely benefit from insulin management given hyperglycemia. She is open to starting medications since our discussion. Monica Canas RDN, CARINE Certified Diabetes Care and Licensed Real Estate Broker T: [phone] F: [phone] [email or web address] Thank you for this referral
== END ==
PROVIDERS: PCP Registered Nurse Diabetes Educator; Referring Provider Family Medicine; Visit Provider Family Medicine
DX: O24.419 Gestational diabetes mellitus in pregnancy, unspecified control (principal); Z3A.29 29 weeks gestation of pregnancy; Z71.3 Dietary counseling and surveillance
CPT/HCPCS: 97803

== ENCOUNTER → 2022-05-22 15:57 | Outpatient (CLI) | payer OTHER, SELFPAY ==
--- NOTE | 2022-05-22 16:41 | DIAB.GDFU ---
Addendum entered by Monica Canas 05/30/22 13:28: Phone call today: after messaging provider decided on 5u of lispro at lunch. Called Shaunna to update her. Verbalized understanding. Will follow-up next week. Addendum entered by Monica Canas 05/29/22 16:46: Phone call check-in: Reports high BG after late lunch at 1-3p when not exercising after (this week: 153, 128, 134, 120 with activity, 111 with activity, 147). Potential that NPH is wearing off by that time some. Lispro at dinner going well, though only eating 30g of carbs. Asked her to increase to 45g. May need to increase Lispro to 6u prn. Encouraged her to discuss with Ijeoma as well. She would like to try moving NPH in the am to her second breakfast to hopefully better cover her lunch. If this does not work, might benefit from lunchtime Lispro. Original Note: Follow-up Gestational Diabetes Assessment Name: Shaunna Lipscomb Date: 05/22/22 Time: 4-430p Dx: Gestational Diabetes Provider: Ijeoma YADY: 07/24/22 Weeks: 31 Shaunna presents for GDM follow-up. Has recently returned from her trip. Has been logging food, BG, and exercise. BG continue to be elevated. Pc readings higher than previous visit, but FBG have improved. Additionally, she is consuming more CHO. Most meals seem 30-45g, occasionally 60g. Choosing balanced meals/snacks. Still below [employer] for in CHO due to fear of hyperglycemia. Was unable to see OB yesterday due to L&D emergency. Plans to message provider recent BG. Encouraged her to message her for titration of insulin as well. Currently taking 5u NPH in the am. Anthropometrics: Ht: 61 Wt: 181# yesterday at OB visit Prepregnancy wt: 163# Physical Activity: Decrease in intentional exercise since trip, but states she has been trying to be more active in general on trip. Plans to return to daily exercising this week . Self-Monitoring Blood Glucose: 3/7 elevated FBG. One reading of 76 which is an outlier, may not be an accurate read. 3/7 elevated pc breakfast, 3/5 elevated pc lunch and 3/5 elevated pc dinner. May benefit from titration of insulin. Reports one instance of low symptoms, ie shaky, with BG of 76 mg/dL after extended fast and cleaning house for Thanksgiving prior to starting NPH. Date Pre Post Pre Post Pre Post HS 05/16 76 115 98 86 05/17 90 122 137 143 /2 100 98 110 160 05/19 102 118 155 05/20 90 120 132 138 05/21 92 159 99 05/22 96 125 Diabetes Medications: 5u NPH am Pertinent Labs: Screen 199mg/dL Nutrition Rx: Carbohydrates: Daily: 175g Meal: 45-g lunch and dinner (min 30g per meal); 30g breakfast Snack: 30g Nutrition Diagnosis: Altered nutrition related lab value r/t GDM dx aeb recent screen Suboptimal physical activity r/t being on trip aeb pt report - new Inadequate CHO intake r/t avoiding hyperglycemia aeb diet recall and pt report - continue/improved Intervention: This participant was very receptive. Provided appropriate educational handouts. Discussed the following topics: Recent blood sugar results and impact of food and hormones Potential of increase in NPH by 2 units to allow for more CHO intake Increasing CHO intake to goal as increase NPH for overall nutrition health for her and baby Physical activity plan Reviewed Rule of 15 for lows prn Goals: Aim for carb recs per meal- improved Contact provider if you do not hear about med recs by Saturday (before leaving for trip)- met Message BG to provider and discuss insulin titration - new Restart physical activity daily- new Follow-up: JUSTIN HAWK follow-up in two weeks. Will call Shaunna in one week to check on BG and insulin titration. Shaunna is doing a great job of monitoring and recording her BG, food, and activity. Given hyperglycemia increasing insulin by 2-4 units q 2-3 days may be beneficial. Monica Canas RDN, DEVINES Certified Diabetes Care and Boring Inspector T: [phone] F: [phone] [email or web address] Thank you for this referral
== END ==
PROVIDERS: PCP Registered Nurse Diabetes Educator; Referring Provider Family Medicine; Visit Provider Family Medicine
DX: O24.414 Gestational diabetes mellitus in pregnancy, insulin controlled (principal); Z3A.31 31 weeks gestation of pregnancy; Z71.3 Dietary counseling and surveillance
CPT/HCPCS: 97803

== ENCOUNTER → 2022-06-05 10:07 | Outpatient (CLI) | payer OTHER, SELFPAY ==
--- NOTE | 2022-06-05 13:26 | DIAB.GDFU ---
Follow-up Gestational Diabetes Assessment Name: Shaunna Lipscomb Date: 06/05/22 Time: 9-930a Dx: Gestational Diabetes Provider: Ijeoma YADY: 07/24/22 Weeks: 33 Shaunna presents for GDM follow-up virtually using [employer] platform. Reports taking the NPH at second breakfast is working but feels she needs more Lispro at dinner. Not currently using lunch ac insulin, but having elevations at dinner with 6u of Lispro. some concern of low BG in evening with increase at dinner. Think she should consider moving 15u NPH back to first breakfast and incorporate lunch ac lispro. This may help reduce BG prior to dinner and therefore negate the need for increased insulin at dinner. She is open to this and we had discussed this last week over the phone. With nutrition, feeling she can eat more. Feeling more satisfied. Aiming for 30g at breakfast and 45g CHO at lunch and dinner, as previously discussed. Physical Activity: less intentional exercise this week. Moving more, nesting, cleaning. Self-Monitoring Blood Glucose: FBG all in goal (FB, 78, 82, 86, 80, 78, 75). After first breakfast 110-120mg/dl in goal; however second breakfast having some in goal and some elevations: 131 (late insulin injection), 118, 124, 89, 123. Lunch averaging mostly in goal: 88, 108, 120, 118, 118, 123 Dinner readings under 130, but elevated each day. 136 sat 129 sun 128 Fri 128 thurs With about 45g carb at dinner Has symptoms of lows when being very active (not after dinner though usually).Lowest is mid 70s ; noon at 77 one day, sometimes will wake up in the 77-78 mg/dL for FBG. Diabetes Medications: 15u NPH am 6u Lispro ac dinner Pertinent Labs: Screen 199mg/dL Intervention: This participant was very receptive. Provided appropriate educational handouts. Discussed the following topics: Recent blood sugar results and impact of food and hormones Encouraged adding lunch Lispro and moving NPH to first meal Reviewed caution with risks for hypoglycemia in evening Nutrition and satiety Physical activity plan Goals: Message BG to provider and discuss insulin titration - met Restart physical activity daily- not met NPH 15 move to first breakfast- new 4-5u Lispro at lunch and 5-6 u Lispro at dinner- new Message me your numbers in one week- new Follow-up: JUSTIN HAWK follow-up in one week to review BG and 1:1 in two weeks for review Monica Canas RDN, CARINE Certified Diabetes Care and Machine Stitcher T: [phone] F: [phone] [email or web address] Thank you for this referral
== END ==
PROVIDERS: PCP Registered Nurse Diabetes Educator; Referring Provider Family Medicine; Visit Provider Family Medicine
DX: O24.414 Gestational diabetes mellitus in pregnancy, insulin controlled (principal); Z71.3 Dietary counseling and surveillance; Z3A.33 33 weeks gestation of pregnancy
CPT/HCPCS: G0108

== ENCOUNTER 2022-06-06 12:06 | Outpatient (CLI) | payer OTHER, SELFPAY | END 2022-06-06 13:00 | disposition home or self-care (01) | LOC: LABOR 13:05 → OB 06-07 12:28 | PROVIDERS: PCP Registered Nurse Diabetes Educator; Referring Provider Family Medicine; Visit Provider Family Medicine | DX: O24.414 Gestational diabetes mellitus in pregnancy, insulin controlled (principal); Z3A.33 33 weeks gestation of pregnancy | CPT/HCPCS: 59025; G0378; G0379 ==

== ENCOUNTER 2022-06-08 10:01 | Outpatient (CLI) | payer OTHER, SELFPAY | END 2022-06-08 11:07 | disposition home or self-care (01) | LOC: OB 06-13 09:06 | PROVIDERS: PCP Registered Nurse Diabetes Educator; Referring Provider Family Medicine; Visit Provider Family Medicine | DX: O24.414 Gestational diabetes mellitus in pregnancy, insulin controlled (principal); Z3A.34 34 weeks gestation of pregnancy | CPT/HCPCS: 59025; G0378; G0379 ==

== ENCOUNTER 2022-06-12 10:04 | Outpatient (CLI) | payer OTHER, SELFPAY ==
--- NOTE | 2022-06-12 10:37 | P.TNLD_ITS ---
Visit Information Visit Information Date of evaluation: 06/12/22 Primary OB Provider: Roxann Raphael On-call OB Provider: Nathan Weber Reason for Evaluation: Yes non-stress test Comments/Additional reasons for admission: GDM A2 34+0 wks EGA Vital Signs Vital Signs: BP: 129/77 P: 110 T: 36.3C [facility] Medical History (Updated 06/12/22 @ 10:42 by Nathan Weber MD) Abnormal Pap smear of cervix (~2007) Allergies (~2009) Asthma (~1992) Chicken pox (~1991) Endocarditis (~2001) Miscarriage (~12/2019) Family History (Updated 11/22/21 @ 14:23 by Huong Lei RN) Father Hypertension Mother Diabetes mellitus Squamous cell carcinoma Grandfather Alzheimer's disease Grandfather Hypertension Esophageal cancer Grandmother Lung cancer Social History marital status: number of children: 0 household members: spouse lives independently: Yes housing: house pets and animals: Yes (2 dog) education level: college (some college) 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/hazards: No special [place] needs: No travel history: over 6 months ago seatbelt use: always helmet use: Yes water heater temp set < 120 deg: Yes working smoke detector in home: Yes fire extinguisher in home: Yes carbon monox detector in home: Yes firearms in home: Yes firearms unloaded and locked: Yes do you feel safe at home: Yes Smoking Status: Former smoker Tobacco: How many years used: 5 (off-an-on social smoker ) second hand exposure: No alcohol intake: former substance use type: marijuana (previously) during the past year weight has: other (fluctuates ~10-15 lb) well-balanced diet: about half the time daily servings fruits/ve-4 caffeine: Yes (Aware of 200 mg limit) Type(s) of exercise: bicycling, swimming and weight lifting frequency: 3-4 times per week Evaluation Evaluation Baseline heart rate: 140 Variability: Moderate (11-25) monitor accelerations: Present Monitor Decelerations: Absent Category of Tracing: Reactive Status: Category l Diagnosis, Plan/Disposition Final Diagnosis (1) Gestational diabetes: Status: Acute Problem details: Type A2, Insulin dependent (2) : Status: Acute Problem details: 34+0 weeks EGA currently Plan/Disposition Plan: Continue care with scheduled testing. PTL precautions.
== END 2022-06-12 10:43 | disposition home or self-care (01) ==
LOC: OB 06-13 09:09
PROVIDERS: PCP Registered Nurse Diabetes Educator; Referring Provider Nurse Practitioner Obstetrics & Gynecology; Visit Provider Nurse Practitioner Obstetrics & Gynecology
DX: O24.414 Gestational diabetes mellitus in pregnancy, insulin controlled (principal); Z3A.34 34 weeks gestation of pregnancy
CPT/HCPCS: 59025; G0378; G0379

== ENCOUNTER 2022-06-14 09:57 | Outpatient (CLI) | payer OTHER, SELFPAY ==
--- NOTE | 2022-06-14 10:28 | PM.OBTRLD ---
Visit Information Visit Information Date of evaluation: 06/14/22 Primary OB Provider: Roxann Raphael On-call OB Provider: Bhumi Gardner Reason for Evaluation: Yes non-stress test non-stress test reason: diabetes Vital Signs Vital Signs: Temperature 36.3? 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/hazards: No special [place] needs: No travel history: over 6 months ago seatbelt use: always helmet use: Yes water heater temp set < 120 deg: Yes working smoke detector in home: Yes fire extinguisher in home: Yes carbon monox detector in home: Yes firearms in home: Yes firearms unloaded and locked: Yes do you feel safe at home: Yes Smoking Status: Former smoker Tobacco: How many years used: 5 (off-an-on social smoker ) second hand exposure: No alcohol intake: former substance use type: marijuana (previously) during the past year weight has: other (fluctuates ~10-15 lb) well-balanced diet: about half the time daily servings fruits/ve-4 caffeine: Yes (Aware of 200 mg limit) Type(s) of exercise: bicycling, swimming and weight lifting frequency: 3-4 times per week Evaluation Evaluation Baseline heart rate: 140 Variability: Moderate (11-25) monitor accelerations: Present Monitor Decelerations: Absent Category of Tracing: Reactive Diagnosis, Plan/Disposition Final Diagnosis (1) : Status: Acute Problem details: 34+0 weeks EGA currently (2) Gestational diabetes: Status: Acute Problem details: Type A2, Insulin dependent Plan/Disposition Plan: 31-year-old at 34 weeks and 2 days with complicated by GDM A2. NST reactive. Continue testing and clinic scheduled. OB Disposition: home
== END 2022-06-14 11:00 | disposition home or self-care (01) ==
LOC: LABOR 10:03 → OB 06-18 15:44
PROVIDERS: PCP Registered Nurse Diabetes Educator; Referring Provider Obstetrics & Gynecology; Visit Provider Obstetrics & Gynecology
DX: O24.414 Gestational diabetes mellitus in pregnancy, insulin controlled (principal); Z3A.34 34 weeks gestation of pregnancy
CPT/HCPCS: 59025; G0378; G0379

== ENCOUNTER 2022-06-19 14:41 | Outpatient (CLI) | payer OTHER, SELFPAY ==
--- NOTE | 2022-06-19 15:08 | P.TNLD_ITS ---
Visit Information Visit Information Date of evaluation: 06/19/22 Primary OB Provider: Roxann Raphael Reason for Evaluation: Yes non-stress test Comments/Additional reasons for admission: 31yo at 34w6d here for NST for GDMA2. Pt is feeling her baby move regularly. No LOF, vaginal bleeding, contractions. 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/hazards: No special [place] needs: No travel history: over 6 months ago seatbelt use: always helmet use: Yes water heater temp set < 120 deg: Yes working smoke detector in home: Yes fire extinguisher in home: Yes carbon monox detector in home: Yes firearms in home: Yes firearms unloaded and locked: Yes do you feel safe at home: Yes Smoking Status: Former smoker Tobacco: How many years used: 5 (off-an-on social smoker ) second hand exposure: No alcohol intake: former substance use type: marijuana (previously) during the past year weight has: other (fluctuates ~10-15 lb) well-balanced diet: about half the time daily servings fruits/ve-4 caffeine: Yes (Aware of 200 mg limit) Type(s) of exercise: bicycling, swimming and weight lifting frequency: 3-4 times per week Evaluation Evaluation Baseline heart rate: 120 Variability: Moderate (11-25) monitor accelerations: Present Monitor Decelerations: Absent Diagnosis, Plan/Disposition Final Diagnosis (1) Gestational diabetes: Status: Acute Problem details: Type A2, Insulin dependent (2) 34 weeks gestation of : Status: Acute Plan/Disposition Plan: 31yo at 34w6d here for NST for GDMA2. NST reactive. Continue testing. OB Disposition: home
== END 2022-06-19 15:12 | disposition home or self-care (01) ==
LOC: OB 06-20 12:51
PROVIDERS: PCP Registered Nurse Diabetes Educator; Referring Provider Family Medicine; Visit Provider Family Medicine
DX: O24.414 Gestational diabetes mellitus in pregnancy, insulin controlled (principal); Z3A.35 35 weeks gestation of pregnancy
CPT/HCPCS: 59025; G0378; G0379

== ENCOUNTER → 2022-06-19 15:24 | Outpatient (CLI) | payer OTHER, SELFPAY ==
--- NOTE | 2022-06-19 17:15 | DIAB.GDFU ---
Follow-up Gestational Diabetes Assessment Name: Shaunna Lipscomb Date: 06/19/22 Time: 335-405p Dx: Gestational Diabetes Provider: Ijeoma YADY: 07/24/22 Weeks: 35 Shaunna presents for our last GDM follow-up. Reports she will likely be induced at 39 weeks. Plans to see OB tomorrow. Improved BG and CHO intake. Pairing carbs and protein. Conscious of portions and vegetable intake. Has some questions regarding diabetes care and nutrition. Physical Activity: No program currently. Trying to stay active through the day Self-Monitoring Blood Glucose: All FBG in goal. All post breakfast in goal. Shaunna usually has a second breakfast which recently has 2/5 elevations due to eating out. After lunch readings in goal with lispro. 1/6 elevated dinner readings with lispro, much improved from last visit. Overall, BG management improved from last visit and last week. Date Pre 15u NPH Post Post second breakfast Post 5u lispro Pre Post 5u lispro HS 06/13 79 91 100 112 110 06/14 87 120 94 94 108 06/15 94 105 124 5u 120 06/16 88 95 77 118 06/17 89 89 125 79 89 06/18 84 103 115 152 06/19 72 90 111 110 Diabetes Medications: 15u NPH 5u Lispro BID Pertinent Labs: Screen 199mg/dL Intervention: This participant was very receptive. Provided appropriate educational handouts. Discussed the following topics: Recent blood sugar results and impact of food and hormones Review of macronutrient recommendations during and Benefits, resources, and nutrition for recommendations for nutrition and physical activity recommendations for T2DM risk reduction OGTT at 6-12 weeks Option for checking blood sugars twice per week (goal: fasting <100 mg/dL and 2 hour pc <140 mg/dL) until 6 week check-up HgA1c q 1-3 years. Goals: NPH 15 move to first breakfast- met 4-5u Lispro at lunch and 5-6 u Lispro at dinner- met Message me your numbers in one week- met Continue insulin regimen as directed by OB- new Complete HgA1c q 1-3 years-new Complete OGTT 6-12 weeks - new Consider BG checks until 6 week 2x per week- new Follow-up: RDN CDCES follow-up prn. Encouraged Shaunna to call or message with any questions or further follow-up needs. Monica Canas RDN, [facility] Certified Diabetes Care and [place] [employer] T: [phone] F: [phone] [email or web address] Thank you for this referral
== END ==
PROVIDERS: PCP Registered Nurse Diabetes Educator; Referring Provider Family Medicine; Visit Provider Family Medicine
DX: O24.414 Gestational diabetes mellitus in pregnancy, insulin controlled (principal); Z3A.35 35 weeks gestation of pregnancy; Z71.3 Dietary counseling and surveillance
CPT/HCPCS: 59025; G0108

== ENCOUNTER 2022-06-22 14:00 | Outpatient (CLI) | payer OTHER, SELFPAY ==
--- NOTE | 2022-06-22 14:44 | P.TNLD_ITS ---
Visit Information Visit Information Date of evaluation: 06/22/22 Primary OB Provider: Roxann Raphael Comments/Additional reasons for admission: 31yo at 35w2d here for NST for GDMA2. Pt is feeling her baby move regularly. No LOF, vaginal bleeding, contractions. 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/hazards: No special [place] needs: No travel history: over 6 months ago seatbelt use: always helmet use: Yes water heater temp set < 120 deg: Yes working smoke detector in home: Yes fire extinguisher in home: Yes carbon monox detector in home: Yes firearms in home: Yes firearms unloaded and locked: Yes do you feel safe at home: Yes Smoking Status: Former smoker Tobacco: How many years used: 5 (off-an-on social smoker ) second hand exposure: No alcohol intake: former substance use type: marijuana (previously) during the past year weight has: other (fluctuates ~10-15 lb) well-balanced diet: about half the time daily servings fruits/ve-4 caffeine: Yes (Aware of 200 mg limit) Type(s) of exercise: bicycling, swimming and weight lifting frequency: 3-4 times per week Evaluation Evaluation Baseline heart rate: 120 Variability: Moderate (11-25) monitor accelerations: Present Monitor Decelerations: Absent Category of Tracing: Reactive Diagnosis, Plan/Disposition Final Diagnosis (1) Gestational diabetes: Status: Acute Problem details: Type A2, Insulin dependent (2) 35 weeks gestation of : Status: Acute Plan/Disposition Plan: 31yo at 35w2d here for NST for GDMA2. NST reactive. Continue screening. IOL scheduled for 39wks. OB Disposition: home
== END 2022-06-22 14:38 | disposition home or self-care (01) ==
LOC: LABOR 14:07 → OB 06-23 15:25
PROVIDERS: PCP Registered Nurse Diabetes Educator; Referring Provider Family Medicine; Visit Provider Family Medicine
DX: O24.414 Gestational diabetes mellitus in pregnancy, insulin controlled (principal); Z3A.35 35 weeks gestation of pregnancy
CPT/HCPCS: 59025; G0378; G0379

== ENCOUNTER 2022-06-26 09:58 | Outpatient (CLI) | payer OTHER, SELFPAY ==
--- NOTE | 2022-06-26 10:36 | PM.OBTRLD ---
Visit Information Visit Information Date of evaluation: 06/26/22 Primary OB Provider: Roxann Raphael Reason for Evaluation: Yes non-stress test Comments/Additional reasons for admission: 31yo at 36w0d here for NST for GDMA2.? Pt is feeling her baby move regularly.? No LOF, vaginal bleeding, contractions. 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/hazards: No special [place] needs: No travel history: over 6 months ago seatbelt use: always helmet use: Yes water heater temp set < 120 deg: Yes working smoke detector in home: Yes fire extinguisher in home: Yes carbon monox detector in home: Yes firearms in home: Yes firearms unloaded and locked: Yes do you feel safe at home: Yes Smoking Status: Former smoker Tobacco: How many years used: 5 (off-an-on social smoker ) second hand exposure: No alcohol intake: former substance use type: marijuana (previously) during the past year weight has: other (fluctuates ~10-15 lb) well-balanced diet: about half the time daily servings fruits/ve-4 caffeine: Yes (Aware of 200 mg limit) Type(s) of exercise: bicycling, swimming and weight lifting frequency: 3-4 times per week Evaluation Evaluation Baseline heart rate: 140 Variability: Moderate (11-25) monitor accelerations: Present Monitor Decelerations: Absent Category of Tracing: Reactive Diagnosis, Plan/Disposition Final Diagnosis (1) Gestational diabetes: Status: Acute Problem details: Type A2, Insulin dependent (2) 36 weeks gestation of : Status: Acute Plan/Disposition Plan: 31yo at 36w0d here for NST for GDMA2.? NST reactive.? Continue screening.? IOL scheduled for 39wks. OB Disposition: home
== END 2022-06-26 10:35 | disposition home or self-care (01) ==
LOC: LABOR 10:12 → OB 06-28 12:02
PROVIDERS: PCP Registered Nurse Diabetes Educator; Referring Provider Family Medicine; Visit Provider Family Medicine
DX: O24.414 Gestational diabetes mellitus in pregnancy, insulin controlled (principal); Z3A.36 36 weeks gestation of pregnancy
CPT/HCPCS: 59025; 87653; G0378; G0379

== ENCOUNTER → 2022-06-26 12:39 | Outpatient (CLI) | payer OTHER, SELFPAY ==
[2022-06-27 11:49] LABS: Strep Grp B PCR POS for Grp B Strep
== END ==
PROVIDERS: PCP Registered Nurse Diabetes Educator; Visit Provider Family Medicine
DX: Z36.85 Encounter for antenatal screening for Streptococcus B (principal)
CPT/HCPCS: 87653

== ENCOUNTER 2022-06-28 09:56 | Outpatient (CLI) | payer OTHER, SELFPAY ==
--- NOTE | 2022-06-28 10:50 | P.TNLD_ITS ---
Visit Information Visit Information Date of evaluation: 06/28/22 Primary OB Provider: Roxann Raphael On-call OB Provider: Nathan Weber Reason for Evaluation: Yes non-stress test Comments/Additional reasons for admission: 31 yo at 36+2 for NST due to GDMA2 [facility] Medical History Abnormal Pap smear of cervix (~2007) Allergies (~2009) Asthma (~1992) Chicken pox (~1991) Endocarditis (~2001) Miscarriage (~12/2019) Family History Father Hypertension Mother Diabetes mellitus Squamous cell carcinoma Grandfather Alzheimer's disease Grandfather Hypertension Esophageal cancer Grandmother Lung cancer Social History marital status: number of children: 0 household members: spouse lives independently: Yes housing: house pets and animals: Yes (2 dog) education level: college (some college) 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/hazards: No special [place] needs: No travel history: over 6 months ago seatbelt use: always helmet use: Yes water heater temp set < 120 deg: Yes working smoke detector in home: Yes fire extinguisher in home: Yes carbon monox detector in home: Yes firearms in home: Yes firearms unloaded and locked: Yes do you feel safe at home: Yes Smoking Status: Former smoker Tobacco: How many years used: 5 (off-an-on social smoker ) second hand exposure: No alcohol intake: former substance use type: marijuana (previously) during the past year weight has: other (fluctuates ~10-15 lb) well-balanced diet: about half the time daily servings fruits/ve-4 caffeine: Yes (Aware of 200 mg limit) Type(s) of exercise: bicycling, swimming and weight lifting frequency: 3-4 times per week
== END 2022-06-28 10:58 | disposition home or self-care (01) ==
LOC: LABOR 10:48 → OB 08-09 13:36
PROVIDERS: PCP Registered Nurse Diabetes Educator; Referring Provider Family Medicine; Visit Provider Family Medicine
DX: O24.414 Gestational diabetes mellitus in pregnancy, insulin controlled (principal); Z3A.36 36 weeks gestation of pregnancy
CPT/HCPCS: 59025; G0378; G0379

== ENCOUNTER 2022-07-03 10:03 | Outpatient (CLI) | payer OTHER, SELFPAY | END 2022-07-03 10:40 | disposition home or self-care (01) | LOC: LABOR 10:25 → OB 07-05 10:03 | PROVIDERS: PCP Registered Nurse Diabetes Educator; Referring Provider Family Medicine; Visit Provider Family Medicine | DX: O24.414 Gestational diabetes mellitus in pregnancy, insulin controlled (principal); Z3A.37 37 weeks gestation of pregnancy | CPT/HCPCS: 59025; G0378; G0379 ==

== ENCOUNTER 2022-07-05 09:59 | Outpatient (CLI) | payer OTHER, SELFPAY ==
--- NOTE | 2022-07-05 10:44 | PM.OBTRLD ---
Visit Information Visit Information Date of evaluation: 07/05/22 Primary OB Provider: Roxann Raphael On-call OB Provider: Nathan Weber Reason for Evaluation: Yes non-stress test Comments/Additional reasons for admission: 31 yo at 37+2 wks EGA for NST due to GDMA2. She is currently scheduled for induction on 07/17/2022. Vital Signs Vital Signs: BP: 119/72 P: 67 T: 36.0C [facility] Medical History Abnormal Pap smear of cervix (~2007) Allergies (~2009) Asthma (~1992) Chicken pox (~1991) Endocarditis (~2001) Miscarriage (~12/2019) Family History Father Hypertension Mother Diabetes mellitus Squamous cell carcinoma Grandfather Alzheimer's disease Grandfather Hypertension Esophageal cancer Grandmother Lung cancer Social History marital status: number of children: 0 household members: spouse lives independently: Yes housing: house pets and animals: Yes (2 dog) education level: college (some college) 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/hazards: No special [place] needs: No travel history: over 6 months ago seatbelt use: always helmet use: Yes water heater temp set < 120 deg: Yes working smoke detector in home: Yes fire extinguisher in home: Yes carbon monox detector in home: Yes firearms in home: Yes firearms unloaded and locked: Yes do you feel safe at home: Yes Smoking Status: Former smoker Tobacco: How many years used: 5 (off-an-on social smoker ) second hand exposure: No alcohol intake: former substance use type: marijuana (previously) during the past year weight has: other (fluctuates ~10-15 lb) well-balanced diet: about half the time daily servings fruits/ve-4 caffeine: Yes (Aware of 200 mg limit) Type(s) of exercise: bicycling, swimming and weight lifting frequency: 3-4 times per week Evaluation Evaluation Baseline heart rate: 130 Variability: Moderate (11-25) monitor accelerations: Present Monitor Decelerations: Absent Category of Tracing: Reactive Diagnosis, Plan/Disposition Final Diagnosis (1) : Status: Acute Problem details: 37+2 weeks EGA currently (2) Gestational diabetes: Status: Acute Problem details: Type A2, Insulin dependent Plan/Disposition Plan: Continue care as currently planned with induction scheduled for 07/17/2022 OB Disposition: home
== END 2022-07-05 10:50 | disposition home or self-care (01) ==
LOC: OB 07-09 10:34
PROVIDERS: PCP Registered Nurse Diabetes Educator; Referring Provider Family Medicine; Visit Provider Family Medicine
DX: O24.414 Gestational diabetes mellitus in pregnancy, insulin controlled (principal); Z3A.37 37 weeks gestation of pregnancy
CPT/HCPCS: 59025; G0378; G0379

== ENCOUNTER 2022-07-09 10:23 | Outpatient (CLI) | payer OTHER, SELFPAY ==
--- NOTE | 2022-07-09 10:47 | P.TNLD_ITS ---
Visit Information Visit Information Date of evaluation: 07/09/22 Primary OB Provider: Roxann Raphael Reason for Evaluation: Yes non-stress test non-stress test reason: diabetes Comments/Additional reasons for admission: 31yo at 37w6d here for NST for GDMA2. 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/hazards: No special [place] needs: No travel history: over 6 months ago seatbelt use: always helmet use: Yes water heater temp set < 120 deg: Yes working smoke detector in home: Yes fire extinguisher in home: Yes carbon monox detector in home: Yes firearms in home: Yes firearms unloaded and locked: Yes do you feel safe at home: Yes Smoking Status: Former smoker Tobacco: How many years used: 5 (off-an-on social smoker ) second hand exposure: No alcohol intake: former substance use type: marijuana (previously) during the past year weight has: other (fluctuates ~10-15 lb) well-balanced diet: about half the time daily servings fruits/ve-4 caffeine: Yes (Aware of 200 mg limit) Type(s) of exercise: bicycling, swimming and weight lifting frequency: 3-4 times per week Evaluation Evaluation Baseline heart rate: 125 Variability: Moderate (11-25) monitor accelerations: Present Monitor Decelerations: Absent Category of Tracing: Reactive Diagnosis, Plan/Disposition Final Diagnosis (1) Gestational diabetes: Status: Acute Problem details: Type A2, Insulin dependent (2) 37 weeks gestation of : Status: Acute Plan/Disposition Plan: 31yo at 37w6d here for NST for GDMA2. NST reactive. Continue testing. Growth u/s later today. IOL scheduled for 39wks. OB Disposition: home
== END 2022-07-09 10:52 | disposition home or self-care (01) ==
LOC: OB 07-13 13:49
PROVIDERS: PCP Registered Nurse Diabetes Educator; Referring Provider Family Medicine; Visit Provider Family Medicine
DX: O24.414 Gestational diabetes mellitus in pregnancy, insulin controlled (principal); Z3A.37 37 weeks gestation of pregnancy
CPT/HCPCS: 59025; 76816; G0378; G0379

== ENCOUNTER → 2022-07-09 14:10 | Outpatient (CLI) | payer OTHER, SELFPAY ==
--- NOTE | 2022-07-09 14:12 | DI.US.S_ITS ---
PROCEDURE: US OB FOLLOW UP INDICATIONS: GROWTH SCAN OUTSIDE/PRIOR DATING DATA: Last menstrual period (LMP): 10/19/2021 LMP-based estimated date of delivery (YADY): 07/26/2022. First dating scan (date and location): 12/16/2021. Estimated date of delivery (YADY) from first dating scan: 07/25/2022. TECHNIQUE: Real-time scanning was performed of the fetus, with image documentation and biometric measurements. COMPARISON: [facility], , US OB GROWTH, 06/13/2022, 7:55. [facility], , OB FOLLOW UP, 05/08/2022, 12:27. FINDINGS: General: A single living intrauterine gestation is present. Presentation: Vertex. Placenta: Placental position is anterior , without previa. Amniotic fluid index: 14.1 cm, normal range is 5-24 cm. Single deepest vertical pocket is 4.3 cm. heart rate: 130 beats per minute. Maternal cervical canal: 3.8 cm long. Normal lower limit is 2.5 cm. biometrics: Biparietal diameter: 37 weeks 3 days Head circumference: 37 weeks Abdominal circumference: 37 weeks 3 days Femur length: 39 weeks Clinically estimated gestational age: 37 weeks 6 days Composite gestational age from present scan: 37 weeks 5 days Estimated weight and percentile: 3309 g; 68th percentile Other: Not applicable. IMPRESSION: Single living IUP redemonstrated and interval growth is normal. We strive to produce accurate, complete, and clear reports of imaging services. To assist us in improving patient care, this report was composed using standard report templates and voice recognition software. Therefore, it may contain abnormal punctuation, insertions and/or omissions. Occasional wrong-word or sound-alike substitutions may occur. Though we review the report and make efforts to correct it, we do recommend that the report be read carefully in proper context to recognize any text inaccuracies. Dictated by: Billy FAIRBANKS Interpreted: Quan Olson MD on 07/09/2022 at 14:35 Transcribed by: KELIN on 07/09/2022 at 14:37 Approved by: Quan Olson M.D. on 07/09/2022 at 20:31
== END ==
PROVIDERS: PCP Registered Nurse Diabetes Educator; Referring Provider Family Medicine; Visit Provider Family Medicine
DX: O24.410 Gestational diabetes mellitus in pregnancy, diet controlled (principal); Z36.2 Encounter for other antenatal screening follow-up; Z36.89 Encounter for other specified antenatal screening; Z3A.37 37 weeks gestation of pregnancy
CPT/HCPCS: 76816

== ENCOUNTER 2022-07-12 14:20 | Outpatient (CLI) | payer OTHER, SELFPAY | END 2022-07-12 14:55 | disposition home or self-care (01) | LOC: LABOR 14:52 → OB 07-13 13:54 | PROVIDERS: PCP Registered Nurse Diabetes Educator; Referring Provider Family Medicine; Visit Provider Family Medicine | DX: O24.414 Gestational diabetes mellitus in pregnancy, insulin controlled (principal); O47.1 False labor at or after 37 completed weeks of gestation; Z3A.38 38 weeks gestation of pregnancy | CPT/HCPCS: 59025; G0378; G0379 ==

== ENCOUNTER 2022-07-15 12:02 | Outpatient (CLI) | payer OTHER, SELFPAY ==
--- NOTE | 2022-07-15 12:35 | PM.PROC.1 ---
Procedures Date/Time Date of procedure: 07/15/22 Time of procedure: 12:10 General Procedure description: 31YO @ 36amr0e under care of Scheduled NST for GDMA2 RNST: baseline FHR 130bpm, moderate variability, acclerations present, decelerations absent Discharge to home with routine precautions and IOL scheduled for 07/17/22 @ 39wks
== END 2022-07-15 12:35 | disposition home or self-care (01) ==
LOC: OB 07-19 06:36
PROVIDERS: PCP Registered Nurse Diabetes Educator; Referring Provider Family Medicine; Visit Provider Family Medicine
DX: O24.414 Gestational diabetes mellitus in pregnancy, insulin controlled (principal); Z3A.38 38 weeks gestation of pregnancy
CPT/HCPCS: 59025; G0378; G0379

== ENCOUNTER 2022-07-17 10:27 | Inpatient (IN) | payer OTHER, SELFPAY ==
[2022-07-17 11:41] VITALS: BP 128/79
[2022-07-17 11:56] LABS: Add Manual Diff / Slide Review NO; Basophils Absolute Auto 0 /uL (0-100); Basophils Percent Auto 0.4 % (0-2); Eosinophils Absolute Auto 0 /uL (0-450); Eosinophils Percent Auto 0.3 % (2-4); Hematocrit 38.3 % (36-46); Lymphocytes Absolute Auto 1600 /uL (1100-4500); Lymphocytes Percent Auto 15.7 % (25-40); Mean Corpuscular Hemoglobin 30.3 PG (26-34); Monocytes Absolute Auto 800 /uL (0-900); Monocytes Percent Auto 8.1 % (3-14); Neutrophils Absolute Auto 7800 /uL (1500-7000); Neutrophils Percent Auto 75.5 % (50-75); Platelet Count 174 X10^3/uL (150-400); Red Cell Distribution Width 14.5 % (11.6-14.8); White Blood Cell Count 10.4 X10^3/uL (4.5-11.0)
[2022-07-17] MEDS: LACTATED RINGERS 1,000 ML 100 ML IV ×2 (13:02→21:48)
--- NOTE | 2022-07-17 13:13 | PM.OBHP.1 ---
OB HPI Date/Time Date of admission: 07/17/22 Date Patient Seen: 07/17/22 Time Patient Seen: 13:13 History of Present Condition Chief complaint: IUP, 39+0 wks EGA, GDMA2, GBS+, Rh Negative : 2 Para: 0 Estimated Date of Delivery: 07/24/22 Estimated Gestational Age (weeks): 39+0 Narrative: Shaunna Lipscomb is a 31 year old admitted at 39+0 weeks EGA for induction due to GDMA2. PNC has otherwise been uneventful with firm dates and appropriate milestones. Current insulin regimen consists of 15 units NPH in the morning and 5 units lispro a.c. for lunch and dinner. Her fasting blood sugars have been ranging between 72 and 82 mg% and her 1 hour postprandial blood sugars have been ranging between 115 and 125 mg%. Total weight gain is 28 lb. Her most recent growth ultrasound performed 07/09/2022 shows the to be in vertex presentation with an estimated weight of 3039 g (68th percentile) with an anterior placenta without previa and an EB of 14.1 cm. GBS is positive. The patient is Rh negative and received Rhogam at 28 weeks. Indications Indication for induction OB: gestational diabetes History of Present care: good care Dating criteria: LMP confirmed by 1st trimester US Ultrasounds: normal 1st trimester US and normal mid trimester US Obstetrical complications: gestational diabetes Medical complications: none Preadmission Labs Blood type: B (-) negative -: Antibody screen: positive (RhoGAM administered 28 weeks), GBS status: positive, HBsAG: negative, HIV: negative and RPR/VDLR: negative -: Chlamydia screen: not detected and Gonorrhea screen: not detected -: Rubella: not immune and Varicella: immune HCT: 38.3 HCAB: negative PAP: Normal Quad screen: Normal 1 hr GTT: 199 Narrative: 3 hour GTT not performed Prior (ies) History: SAB x1 Evaluation Evaluation Baseline heart rate: 140 Variability: Moderate (11-25) monitor accelerations: Present Monitor Decelerations: Absent Category of Tracing: Reactive Status: Category l Dilation (cm): 2 Effacement (%): 80 Dilation: 1-2 cm Effacement: >/=80% station: -2 Position of cervix: anterior Consistency: soft Garrett score: 9 [facility] Medical History Abnormal Pap smear of cervix (~2007) Allergies (~2009) Asthma (~1992) Chicken pox (~1991) Endocarditis (~2001) Miscarriage (~12/2019) Family History Father Hypertension Mother Diabetes mellitus Squamous cell carcinoma Grandfather Alzheimer's disease Grandfather Hypertension Esophageal cancer Grandmother Lung cancer Social History marital status: number of children: 0 household members: spouse lives independently: Yes housing: house pets and animals: Yes (2 dog) education level: college (some college) 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/hazards: No special [place] needs: No travel history: over 6 months ago seatbelt use: always helmet use: Yes water heater temp set < 120 deg: Yes working smoke detector in home: Yes fire extinguisher in home: Yes carbon monox detector in home: Yes firearms in home: Yes firearms unloaded and locked: Yes do you feel safe at home: Yes Smoking Status: Former smoker Tobacco: How many years used: 5 (off-an-on social smoker ) second hand exposure: No alcohol intake: former substance use type: marijuana (previously) during the past year weight has: other (fluctuates ~10-15 lb) well-balanced diet: about half the time daily servings fruits/ve-4 caffeine: Yes (Aware of 200 mg limit) Type(s) of exercise: bicycling, swimming and weight lifting frequency: 3-4 times per week Meds Home Medications and Allergies Home Medications Medication Instructions Recorded Confirmed Type docosahexaenoic acid 200 mg mg PO 10/27/20 07/09/22 History capsule ( DHA) PNV cmb#95-ferrous fumarate-FA PO 10/10/21 07/09/22 History [ Multivitamins] Lactobacillus rhamnosus GG 20 1 cell PO DAILY 11/22/21 07/17/22 History billion cell capsule (Probiotic Digestive Care) loratadine 10 mg tablet (Allergy 10 mg PO DAILY 11/22/21 07/17/22 History Relief (loratadine)) melatonin 5 mg tablet 5 mg PO BEDTIME PRN Insomnia 11/22/21 07/09/22 History vitamin B complex (B 1 tab PO DAILY 11/22/21 07/09/22 History Complex-Vitamin B12 tablet) glucometer #1 ea 04/17/22 07/09/22 Rx glucose test strips #120 ea 04/17/22 07/09/22 Rx lancet #120 ea 04/17/22 07/09/22 Rx insulin syringe #90 ea 05/09/22 07/09/22 Rx sharps container #1 ea 05/09/22 07/09/22 Rx insulin NPH isoph U-100 human 100 15 unit (0.15 mL) SUBCUT QAM #10 mL 05/23/22 07/17/22 Rx unit/mL subcutaneous suspension insulin lispro 100 unit/mL 5 unit (0.05 mL) SUBCUT QACDINNER 05/23/22 07/17/22 Rx subcutaneous solution #10 mL Allergies Allergy/AdvReac Type Severity Reaction Status Date / Time No Known Drug Allergies Allergy Verified 07/17/22 11:13 Review of Systems Review of Systems Narrative: Problem-specific ROS positives included in HPI OB Exam Vital signs Blood Pressure: 128/79 Pulse Rate: 86 Temperature: 97.9 F [facility] Head: normal to inspection, normocephalic and atraumatic Eyes General: appearance normal, both eyes and all related structures Resp Effort & Inspection: normal respiratory effort and able to speak in complete sentences Auscultation: clear to auscultation bilaterally Cardio Rate: regular rate Rhythm: regular rhythm Heart Sounds: S1 normal, S2 normal and no murmurs Extremities Lower extremity: Yes normal to inspection GI Inspection: normal to inspection Palpation: Yes soft and Yes no hepatosplenomegaly Uterus Location (Fundal Height): 37 Presentation: vertex Estimated Weight (lbs): 7 Objective Labs 07/17/22 11:35 Labs: Laboratory Results - last 24 hr 07/17/22 07/17/22 11:35 11:35 WBC 10.4 RBC 4.30 Hgb 13.0 Hct 38.3 MCV 89.0 MCH 30.3 MCHC 34.0 RDW 14.5 Plt Count 174 Neut % (Auto) 75.5 H Lymph % (Auto) 15.7 L [place] % (Auto) 8.1 Eos % (Auto) 0.3 L Baso % (Auto) 0.4 Neut # (Auto) 7800 H Lymph # (Auto) 1600 [place] # (Auto) 800 Eos # (Auto) 0 Baso # (Auto) 0 Blood Type B Negative Antibody Screen Positive Antibody Identification Anti-D Assessment and Plan Assessment and Plan Assessment and Plan narrative: ASSESSMENT 1. Intrauterine , 39+ 0 weeks gestational age 2. Gestational diabetes, type A2 3. Rh negative 4. GBS positive status PLAN 1. Admit for induction 2. See admission orders Time Spent with Patient Total time spent with greater than 50% in coordination of care (as documented) at patient's floor/unit and/or counseling patient:: 15-24 minutes
[2022-07-17] MEDS: OXYTOCIN PREMIX 30 UNIT/500 ML PLAST..BAG IV (13:19)
[2022-07-17 13:41] VITALS: BP 128/79; PULSE 86; TEMP 36.6
--- NOTE | 2022-07-17 18:40 | PM.OBPNLAB ---
Date/Time Date Patient Seen: 07/17/22 Time Patient Seen: 18:40 Pain Control Pain control: tolerating well Pelvic Exam Dilation (cm): 2 Effacement (%): 80 station: -2 Comments: Patient hasn't been rechecked since admission Contractions Contractions on admission: none Monitor mode: External Pitocin rate (mU/min): 11 Contraction frequency (min): 3 Contraction duration (min): 1 Contraction pattern: Regular Contraction phase: Resting Contraction intensity: Moderate Status status: Category l Heart Rate Baseline: 140 Monitor Accelerations: Present Monitor Decelerations: Absent Monitor Variability: Moderate Assessment and Plan Assessment: induction ongoing Plan: continuous present management
[2022-07-17] MEDS: PENICILLIN G POTASSIUM 5,000,000 UNIT in DEXTROSE 5% IN WATER 250 ML 250 UNIT IV (21:51)
[2022-07-18] MEDS: PENICILLIN G POTASSIUM 3,000,000 UNIT/50 ML FROZ.PIGGY 100 UNIT IV (01:59)
--- NOTE | 2022-07-18 04:59 | PM.OBPNLAB ---
Date/Time Date Patient Seen: 07/18/22 Time Patient Seen: 05:00 Pain Control Pain control: tolerating well and epidural Pelvic Exam Dilation (cm): 10 Effacement (%): 100 station: +1 Amniotic membrane status: Ruptured Contractions Contractions on admission: none Monitor mode: External Pitocin rate (mU/min): 8 Contraction frequency (min): 4 Contraction duration (min): 1 Contraction pattern: Regular Contraction phase: Resting Contraction intensity: Moderate Status status: Category l Heart Rate Baseline: 125 Monitor Accelerations: Present Monitor Decelerations: Early Monitor Variability: Moderate Assessment and Plan Assessment: induction ongoing Plan: continuous present management
--- NOTE | 2022-07-18 06:45 | PM.OBPRVD ---
Events: Gestational Diabetes Labor & Delivery Delivery date: 07/18/22 Cervical ripening method: none Induction method: per pitocin protocol Delivery augmentation: pitocin Delivery monitor: external FHT and external uterine Route of delivery: Episiotomy description: None L&D Laceration Description: Perineal - 3rd Degree (Partial) Delivery repair: vicryl and chromic Estimated blood loss (mL): 250 Anesthesia Type: Epidural Complications: None Narrative: Following a 1 hour 20 minutes 2nd stage, the patient delivered spontaneously over intact perineum via female with Apgars of 10 and 10 and a weight of gms. ( lbs. oz.). no shoulder dystocia was encountered and there were no cord entanglements. Skin to skin contact was initiated immediately and delayed cord clamping performed. Once the umbilical cord was doubly clamped and cut, a specimen of cord blood was obtained for routine studies. Placenta was delivered easily with gentle cord traction and suprapubic countertraction. IV Pitocin was initiated immediately and uterine bleeding was minimal. Inspection of the perineum showed a partial third-degree perineal laceration with disruption of possibly 25% of sphincter fibers on both sides and lateral vaginal extensions. the sphincter fibers were brought back together with 2-0 Vicryl interrupted and the deep spaces were closed in a similar manner. the mucosal tears were then brought together with 2-0 chromic using running interlocking stitches and the perineum closed with subcuticular stitches in the usual manner. Mother and baby were doing well at the completion of the delivery process. Baby 1: Infant gender: Female Presentation: vertex Position: Left Occiput Anterior Placenta delivery description: Spontaneous Cord Vessel Description: 3 Vessels score (1 min): 10 score (5 min): 10 weight: 7 lb 6.062 oz Plan for aftercare: Routine care
[2022-07-18 07:00] VITALS: BP 108/62; PULSE 68; RESP 18; TEMP 36.9
[2022-07-18] MEDS: DERMOPLAST SPRAY 20% 60 ML 1 SPRAY TOP (09:17)
[2022-07-18] MEDS: DOCUSATE 100 MG CAPSULE PO ×2 (09:17→21:36)
[2022-07-18] MEDS: IBUPROFEN 600 MG TABLET PO ×3 (09:18→21:36)
[2022-07-18] MEDS: RHO(D) IMMUNE GLOBULIN 1,500 UNIT SYRINGE 1500 UNIT IM (13:49)
[2022-07-18] MEDS: ACETAMINOPHEN 325 MG TABLET 650 MG PO ×2 (15:31→21:37)
[2022-07-19] MEDS: IBUPROFEN 600 MG TABLET PO (04:00)
[2022-07-19] MEDS: ACETAMINOPHEN 325 MG TABLET 650 MG PO (04:00)
[2022-07-19 06:34] LABS: Add Manual Diff / Slide Review NO; Basophils Absolute Auto 0 /uL (0-100); Basophils Percent Auto 0.4 % (0-2); Eosinophils Absolute Auto 0 /uL (0-450); Eosinophils Percent Auto 0.4 % (2-4); Hematocrit 27.3 % (36-46); Hemoglobin 9.4 g/dL (12.0-16.0); Lymphocytes Absolute Auto 2100 /uL (1100-4500); Lymphocytes Percent Auto 20.8 % (25-40); Mean Corpuscular HGB Conc 34.6 % (30-36); Mean Corpuscular Hemoglobin 30.8 PG (26-34); Mean Corpuscular Volume 89.2 fL (80-100); Monocytes Absolute Auto 700 /uL (0-900); Monocytes Percent Auto 7.2 % (3-14); Neutrophils Absolute Auto 7300 /uL (1500-7000); Neutrophils Percent Auto 71.2 % (50-75); Platelet Count 144 X10^3/uL (150-400); Red Blood Cell Count 3.06 X10^6/uL (4.0-5.2); Red Cell Distribution Width 14.4 % (11.6-14.8); White Blood Cell Count 10.3 X10^3/uL (4.5-11.0)
--- NOTE | 2022-07-19 08:33 | P.DS_ITS ---
Discharge Providers Provider Date of admission: 07/17/22 10:27 Discharge Date: 07/19/22 Primary care physician: MELANIE Joseph Consults: 07/19/22 06:41 Consult to [employer]andem [employer] Operator Routine Comment: Discharge provider: Nathan Weber MD Summary Hospital Course Date Patient Seen: 07/19/22 Time Patient Seen: 08:33 Diagnoses: IUP, 39+1 wks EGA, delivered by spontaneous vaginal GDM type A2 Rh-negative status GBS positive status Hospital Course: Shaunna was admitted on the morning 07/17/2022 for induction due to GDM A2. She was initiated on Pitocin protocol and progressed nicely placement of a continuous lumbar epidural catheter in labor. The early on the morning 07/18/2022 she delivered spontaneously a viable female with Apgars of 10 and 10, weight 3347 g (7 lb 6.1 oz). Patient at the time of delivery sustained a partial third-degree perineal laceration which was repaired in the usual. Following delivery both mother baby have done extremely well with the mother experiencing prompt return of bowel and bladder function, she is ambulating independently, tolerating a regular diet, and her pain is well co ntrolled with pain medications. She will be discharged with history in an afebrile and normotensive condition after counseling regarding precautionary symptoms, limitations of activity, medications, and plans for follow-up which will [address] Roxann Mcneil. Medications at discharge will include continuation of all her medications except for daily insulin therapy and glucose monitoring as well as oxycodone 5 mg, dispensed 15 tabs, and ibuprofen 600 mg p.o. q.6 hours, dispense 30 with 2 refills, and Colace 100 mg p.o. b.i.d. times 30 days. Peripartum Data Infant Delivery Method: Natural Vaginal Laceration Description: Perineal - 3rd Degree Episiotomy description: None Procedures: Continuous lumbar epidural catheter placement Spontaneous vaginal complications: perineal laceration 1: Gender: Female Disposition of : home Status at Discharge Cognitive/behavioral status at discharge: oriented Functional status at discharge: independent ambulation Overall status at discharge: patient is progressing back to baseline Time Spent with Patient Time attestation: Total time spent providing and/or coordinating discharge services: Time spent: Less than 30 minutes Objective Labs 07/19/22 06:08 Labs: Laboratory Results - last 24 hr 07/19/22 07/19/22 06:08 06:08 WBC 10.3 RBC 3.06 L Hgb 9.4 L Hct 27.3 L MCV 89.2 MCH 30.8 MCHC 34.6 RDW 14.4 Plt Count 144 L Neut % (Auto) 71.2 Lymph % (Auto) 20.8 L Bibb % (Auto) 7.2 Eos % (Auto) 0.4 L Baso % (Auto) 0.4 Neut # (Auto) 7300 H Lymph # (Auto) 2100 Bibb # (Auto) 700 Eos # (Auto) 0 Baso # (Auto) 0 Maternal Bleed Negative Exam Const General: cooperative and comfortable Nutritional Appearance: average body habitus Orientation: alert and oriented x3 HENMT Head: normal to inspection, atraumatic and abrasion Ears: hearing grossly normal bilaterally Face and sinus: face symmetric Eyes General: appearance normal, both eyes and all related structures Conjunctivae: conjunctivae normal Sclera: sclerae normal EOM: EOM intact bilaterally Neck Neck: normal visual inspection Resp Effort & Inspection: normal respiratory effort and able to speak in complete sentences GI Inspection: normal to inspection Palpation: soft, no hepatosplenomegaly and mass (Firm, minimally tender fundus, U minus 4) External Female Exam: external swelling (Minimal), ecchymosis (Minimal) and other (No significant bleeding noted, perineal repair intact early healing) Extrem General: no calf tenderness Psych Appearance: grossly normal Mental Status: mental status grossly normal Speech and Movement: speech and movement normal Mood: congruent mood Affect: normal affect Attitude: cooperative Thought Process: normal Thought Content: normal Judgment: judgment good Discharge Plan Discharge Plan Patient Disposition: Home Provider Discharge Comment: Please review the written instructions you received when you were discharged from the hospital. Your follow-up appointment with Dr. Raphael will be 6 weeks following her delivery. If however you have questions, concerns, or problems, until Dr. Raphael returns, please contact me at my office phone [phone], or via the patient portal. Discharge orders & Medications Prescriptions: New ibuprofen 600 mg Tablet 600 mg PO Q6HR PRN (Reason: Pain, Mild (1-3)) Qty: 30 2RF oxycodone 5 mg Tablet 5 mg PO Q6H PRN (Reason: Pain, Moderate (4-6)) Qty: 12 0RF docusate sodium 100 mg Capsule 100 mg PO BID 30 Days Qty: 60 2RF Continued DHA 200 mg capsule 200 mg PO DAILY PNV cmb#95-ferrous fumarate-FA [ Multivitamins] vitamin B complex [B Complex-Vitamin B12] Tablet 1 tab PO DAILY melatonin 5 mg tablet 5 mg PO BEDTIME PRN (Reason: Insomnia) loratadine [Allergy Relief (loratadine)] 10 mg tablet 10 mg PO DAILY Probiotic Digestive Care 20 billion cell capsule 1 cell PO DAILY Discontinued (DME) glucometer See Rx Instructions .Route .MEDSUPPLY Qty: 1 0RF Rx Instructions: As directed (DME) glucose test strips See Rx Instructions .Route .MEDSUPPLY Qty: 120 6RF Rx Instructions: To test 4 times daily, Fasting and 2 hr after eating. (DME) lancet See Rx Instructions .Route .MEDSUPPLY Qty: 120 6RF Rx Instructions: To test 4 times daily (DME) insulin syringe See Rx Instructions .Route .MEDSUPPLY Qty: 90 1RF Rx Instructions: Insulin injection daily in the AM insulin NPH isoph U-100 human 100 unit/mL suspension 15 unit SUBCUT QAM Qty: 10 0RF insulin lispro 100 unit/mL solution 5 unit SUBCUT QACDINNER Qty: 10 0RF No Action (DME) sharps container See Rx Instructions .Route .MEDSUPPLY Qty: 1 2RF Rx Instructions: for sharps disposal Follow up/Referrals: Roxann Raphael MD [Physician] - ( appt: please follow up w/ Dr Raphael on August 28 @ 11:30am) Discharge Health Status Multidrug resistant organism: No MDRO Diet/Activity/Treatments Diet: Diet as Tolerated Activity: As tolerated Other treatments: [id number] Tylenol may also be used for additional pain relief. [id number] MiraLax may be used daily for constipation. Skin/Wound/Dressing Care Report to your healthcare provider any signs of infection, such as:: chills, fever, increased pain, unusual drainage and unusual redness Dressing: N/A Visit Report/Discharge Packet Instructions: DI for Labor and Delivery, Vaginal , DI for and Nipple Soreness, DI for Prescription Opioid Use Stand Alone Forms: Discharge: Care Discharge Data Primary Care Provider: Riky Barney
[2022-07-19] MEDS: DOCUSATE 100 MG CAPSULE PO (09:10)
[2022-07-19] MEDS: MEASLES,MUMPS,RUBELLA VACC/PF 0.5 ML VIAL SUBCUT (11:10)
== END 2022-07-19 11:43 | disposition home or self-care (01) | DRG 768 ==
PROVIDERS: Family Medicine; Admitting Provider Obstetrics & Gynecology; PCP Registered Nurse Diabetes Educator; Referring Provider Obstetrics & Gynecology; Visit Provider Obstetrics & Gynecology
DX: O24.424 Gestational diabetes mellitus in childbirth, insulin controlled (principal); Z37.0 Single live birth; O70.20 Third degree perineal laceration during delivery, unspecified; O99.824 Streptococcus B carrier state complicating childbirth; Z3A.39 39 weeks gestation of pregnancy; Z20.822 Contact with and (suspected) exposure to COVID-19
CPT/HCPCS: 36415; 59050; 59400; 59409; 85025; 85461; 86850; 86870; 86900; 86901; G0379; J2540; J2590; J2790

== ENCOUNTER → 2022-08-27 09:30 | Outpatient (CLI) | payer OTHER, SELFPAY | PROVIDERS: PCP Registered Nurse Diabetes Educator; Referring Provider Family Medicine; Visit Provider Family Medicine | DX: O36.0190 Maternal care for anti-D [Rh] antibodies, unspecified trimester, not applicable or unspecified (principal); Z3A.37 37 weeks gestation of pregnancy | CPT/HCPCS: 36415; 86850; 86870 ==

== ENCOUNTER → 2022-12-03 12:32 | Outpatient (CLI) | payer OTHER, SELFPAY ==
[2022-12-03 14:56] LABS: Glucose Fasting 95 mg/dL (70-100)
[2022-12-03 17:34] LABS: Glucose Tol Interpretation INTERPRETATION
[2022-12-03 17:45] LABS: Glucose 2 Hour 90 mg/dL (70-140)
[2022-12-03 17:46] LABS: Glucose 1 Hour 200 mg/dL (70-170)
== END ==
PROVIDERS: PCP Registered Nurse Diabetes Educator; Referring Provider Family Medicine; Visit Provider Family Medicine
DX: O24.419 Gestational diabetes mellitus in pregnancy, unspecified control (principal)
CPT/HCPCS: 36415; 82951; 82952

== ENCOUNTER → 2022-12-14 14:44 | Outpatient (CLI) | payer OTHER, SELFPAY ==
[2022-12-15 04:09] LABS: Labcorp Hemoglobin (Hb) A1c 5.9 % (4.8-5.6)
== END ==
PROVIDERS: PCP Registered Nurse Diabetes Educator; Referring Provider Family Medicine; Visit Provider Family Medicine
DX: O24.419 Gestational diabetes mellitus in pregnancy, unspecified control (principal); Z3A.37 37 weeks gestation of pregnancy
CPT/HCPCS: 36415; 83036

== ENCOUNTER → 2023-02-11 10:47 | Outpatient (CLI) | payer OTHER, SELFPAY ==
[2023-02-11 13:41] LABS: Free T4, Direct Thyroxine 0.67 ng/dL (0.78-2.19)
== END ==
PROVIDERS: PCP Family Medicine; Referring Provider Family Medicine; Visit Provider Family Medicine
DX: Z13.29 Encounter for screening for other suspected endocrine disorder (principal)
CPT/HCPCS: 36415; 84439; 84443

== ENCOUNTER → 2023-05-14 11:12 | Outpatient (CLI) | payer OTHER, SELFPAY ==
[2023-05-14 13:24] LABS: TSH w/ Reflex to FT4 4.84 uIU/mL (0.47-4.68)
[2023-05-14 13:57] LABS: Free T4, Direct Thyroxine 1.07 ng/dL (0.78-2.19)
== END ==
PROVIDERS: PCP Family Medicine; Referring Provider Family Medicine; Visit Provider Family Medicine
DX: E03.9 Hypothyroidism, unspecified (principal)
CPT/HCPCS: 36415; 84439; 84443

== ENCOUNTER → 2023-08-26 08:26 | Outpatient (CLI) | payer OTHER, SELFPAY ==
[2023-08-26 11:16] LABS: TSH w/ Reflex to FT4 7.93 uIU/mL (0.47-4.68)
== END ==
PROVIDERS: PCP Family Medicine; Referring Provider Family Medicine; Visit Provider Family Medicine
DX: E03.9 Hypothyroidism, unspecified (principal)
CPT/HCPCS: 36415; 84439; 84443

== ENCOUNTER → 2023-10-16 12:34 | Outpatient (CLI) | payer OTHER, SELFPAY ==
[2023-10-16 13:02] LABS: Add Manual Diff / Slide Review NO; Basophils Absolute Auto 0 /uL (0-100); Basophils Percent Auto 0.3 % (0-2); Eosinophils Absolute Auto 0 /uL (0-450); Eosinophils Percent Auto 0.4 % (2-4); Hematocrit 38.4 % (36-46); Hemoglobin 13.3 g/dL (12.0-16.0); Lymphocytes Absolute Auto 1900 /uL (1100-4500); Lymphocytes Percent Auto 17.5 % (25-40); Mean Corpuscular HGB Conc 34.6 % (30-36); Mean Corpuscular Hemoglobin 29.9 PG (26-34); Mean Corpuscular Volume 86.4 fL (80-100); Monocytes Absolute Auto 700 /uL (0-900); Monocytes Percent Auto 6.4 % (3-14); Neutrophils Absolute Auto 8100 /uL (1500-7000); Neutrophils Percent Auto 75.4 % (50-75); Platelet Count 295 X10^3/uL (150-400); Red Blood Cell Count 4.45 X10^6/uL (4.0-5.2); Red Cell Distribution Width 13.4 % (11.6-14.8); White Blood Cell Count 10.8 X10^3/uL (4.5-11.0)
[2023-10-16 13:15] LABS: Appearance Urine UA CLEAR; Bilirubin Urine UA NEGATIVE (NEGATIVE); Color Urine UA YELLOW; Glucose Urine UA NEGATIVE (Negative); Ketones Urine UA NEGATIVE (NEGATIVE); Leukocyte Esterase Urine UA NEGATIVE (NEGATIVE); Nitrite Urine UA NEGATIVE (Negative); Occult Blood Urine UA NEGATIVE (Negative); Protein Urine UA NEGATIVE (Negative); Specific Gravity Urine UA 1.025 (1.000-1.035)
[2023-10-16 13:16] LABS: Hemoglobin A1C% w Est Avg Glu 5.5 % (4.0-6.0)
[2023-10-16 13:53] LABS: TSH w/ Reflex to FT4 3.23 uIU/mL (0.47-4.68)
[2023-10-16 14:30] LABS: Urine N gonorrhoeae NOT DETECTED
[2023-10-16 14:31] LABS: Urine Chlamydia NOT DETECTED
[2023-10-16 15:19] LABS: GTT (PREG) 1 Hour PP 50gm Dose 178 mg/dL (76-139)
[2023-10-17 10:48] LABS: Varicella IgG Antibody 938 index (Immune >165)
[2023-10-17 18:07] LABS: Hepatitis B Surface Antigen NEGATIVE s/c (NEGATIVE); Rubella Antibody IgG 96.1 IU/mL (>15)
[2023-10-17 18:37] LABS: HIV 1 & 2 Ab/Ag 4th Gen Combo NEGATIVE (NEGATIVE); Hep C Virus Ab w/Reflex Quant NEGATIVE s/c (NEGATIVE)
[2023-10-18 06:53] LABS: RPR Screen Non Reactive (Non Reactive)
== END ==
PROVIDERS: PCP Family Medicine; Referring Provider Family Medicine; Visit Provider Family Medicine
DX: O09.299 Supervision of pregnancy with other poor reproductive or obstetric history, unspecified trimester (principal); E03.9 Hypothyroidism, unspecified; Z86.32 Personal history of gestational diabetes
CPT/HCPCS: 36415; 80055; 81003; 82950; 83036; 84443; 86787; 86803; 86850; 86900; 86901; 87086; 87389; 87491; 87591

== ENCOUNTER 2023-11-22 11:13 | Emergency (ER) | payer OTHER, SELFPAY ==
[2023-11-22 11:18] VITALS: BP 135/74; PULSE 77; RESP 18; TEMP 36.4; O2SAT 98; BMI 33.0
--- NOTE | 2023-11-22 11:18 | PC.NURSE ---
This RN attempted to get patient for triage but was informed by admissions desk that she went to her car. Will reattempt in a few min.
--- NOTE | 2023-11-22 11:26 | DI.US.S_ITS ---
PROCEDURE: US OB <= 14 WEEKS FETUS INDICATIONS: Vaginal spotting started 11/20/23 OUTSIDE/PRIOR DATING DATA: Last menstrual period (LMP): 324. LMP-based estimated date of delivery (YADY): 05/29/2024. First dating scan (date and location): 11/22/2023. Estimated date of delivery (YADY) from first dating scan: 05/31/2024 TECHNIQUE: Real-time scanning was performed of the fetus and maternal pelvic organs, with image documentation. Endovaginal scanning was also performed to better visualize the fetus and maternal ovaries. COMPARISON: None FINDINGS: Embryo: Single live intrauterine is present with crown-rump length measuring 6.3 cm corresponding to 12 weeks 5 days Heart rate: 155 beats per minute Maternal organs: Ovaries demonstrate corpus luteal cyst on the right measuring 2.2 x 1.7 x 1.4 cm. Distance from inferior placental tip to the os measures 1.5 cm in early gestational. IMPRESSION: Single live intrauterine with gestational age today of 12 weeks 5 days. Recommend follow-up imaging at 20-22 weeks for dates and anatomy. We strive to produce accurate, complete, and clear reports of imaging services. To assist us in improving patient care, this report was composed using standard report templates and voice recognition software. Therefore, it may contain abnormal punctuation, insertions and/or omissions. Occasional wrong-word or sound-alike substitutions may occur. Though we review the report and make efforts to correct it, we do recommend that the report be read carefully in proper context to recognize any text inaccuracies. Dictated by: Katharina Packer M.D. on 11/22/2023 at 13:13 Approved by: Katharina Packer M.D. on 11/22/2023 at 13:14
--- NOTE | 2023-11-22 11:39 | PC.NURSE ---
Patient left department with alarm technician immediately after this RN placed IV at 1130.
[2023-11-22 11:50] LABS: Add Manual Diff / Slide Review NO; Basophils Absolute Auto 0 /uL (0-100); Basophils Percent Auto 0.3 % (0-2); Eosinophils Absolute Auto 0 /uL (0-450); Eosinophils Percent Auto 0.3 % (2-4); Hematocrit 38.3 % (36-46); Hemoglobin 13.3 g/dL (12.0-16.0); Lymphocytes Absolute Auto 2000 /uL (1100-4500); Lymphocytes Percent Auto 19.6 % (25-40); Mean Corpuscular HGB Conc 34.7 % (30-36); Mean Corpuscular Hemoglobin 29.8 PG (26-34); Mean Corpuscular Volume 85.9 fL (80-100); Monocytes Absolute Auto 700 /uL (0-900); Monocytes Percent Auto 6.6 % (3-14); Neutrophils Absolute Auto 7600 /uL (1500-7000); Neutrophils Percent Auto 73.2 % (50-75); Platelet Count 246 X10^3/uL (150-400); Red Blood Cell Count 4.45 X10^6/uL (4.0-5.2); Red Cell Distribution Width 13.3 % (11.6-14.8); White Blood Cell Count 10.4 X10^3/uL (4.5-11.0)
[2023-11-22 11:58] LABS: Alanine Aminotransferase 19 IU/L (<35); Albumin Globulin Ratio 1.4 (1.0-2.8); Alkaline Phosphatase 57 U/L (38-126); Aspartate Aminotransferase 22 IU/L (14-36); BUN Creatinine Ratio 14.5 (6-22); Bilirubin Total 0.5 mg/dL (0.2-1.3); Blood Urea Nitrogen 9 mg/dL (7-17); Calcium 9.2 mg/dL (8.4-10.2); Carbon Dioxide 23 mmol/L (22-32); Chloride 106 mmol/L (98-107); Estimated Glomerular Filt Rate > 60 mL/min (>60); Globulin 2.8 g/dL (1.7-4.1); Glucose 94 mg/dL (70-100); HEMOLYSIS < 15 (0-50); Potassium 4.1 mmol/L (3.4-5.1); Sodium 136 mmol/L (137-145); Total Protein 6.8 g/dL (6.3-8.2)
[2023-11-22 12:12] VITALS: PULSE 76; O2SAT 98
[2023-11-22 12:13] VITALS: BP 120/73; PULSE 78; O2SAT 98
[2023-11-22 12:30] VITALS: BP 110/73; PULSE 82; O2SAT 100
--- NOTE | 2023-11-22 12:32 | ED.FEMALEGU ---
HPI - Female Genitourinary General Chief complaint: Vaginal Bleeding Stated complaint: 13wk Preg, Spotting, Cramps Time Seen by Provider: 11/22/23 12:31 Source: patient Mode of arrival: Ambulatory History of Present Illness HPI Narrative: 33-year-old female with obstetrics history SAb1, current , she believes 13 weeks , care Dr Raphael who she had seen last week, now with some light vaginal spotting for about 1 hour that resolved, yesterday with a little bit darker spotting and some slight abdominal cramping. No passage of tissue. No fevers or chills. She believes that she is blood type B negative, and her is blood type O-positive, she has received RhoGAM in the past. She denies loose stools, no black or red stools. Ongoing nausea with this early , no recent emesis. No cough or shortness of breath. She denies sore throat, nasal congestion symptoms. She denies painful urination, or frequency of urination. No flank pain. Related Data Home Medications Medication Instructions Recorded Confirmed docosahexaenoic acid 200 mg 200 mg PO DAILY 10/27/20 11/13/23 capsule ( DHA) PNV cmb#95-ferrous fumarate-FA 10/10/21 11/13/23 [ Multivitamins] Lactobacillus rhamnosus GG 20 1 cell PO DAILY 11/22/21 11/13/23 billion cell capsule (Probiotic Digestive Care) loratadine 10 mg tablet (Allergy 10 mg PO DAILY 11/22/21 11/13/23 Relief (loratadine)) vitamin B complex (B 1 tab PO DAILY 11/22/21 11/13/23 Complex-Vitamin B12 tablet) Previous Rx's Medication Instructions Recorded sharps container #1 ea 05/09/22 doxylamine succinate 25 mg tablet 25 mg PO Q6H PRN nasuea/vomiting 10/14/23 #60 tabs pyridoxine (vitamin B6) 25 mg 25 mg PO BID #60 tabs 10/14/23 tablet levothyroxine 100 mcg capsule 100 mcg PO DAILY #30 caps 10/16/23 Allergies Allergy/AdvReac Type Severity Reaction Status Date / Time No Known Drug Allergies Allergy Verified 11/22/23 11:26 Review of Systems Review of Systems Narrative: As per HPI Patient History Medical History (Updated 11/22/23 @ 14:22 by Celio Pino MD) History of hysterosalpingogram Asthma (~1992) Infertility Anovulation Gestational diabetes Miscarriage (~12/2019) Chicken pox (~1991) Abnormal Pap smear of cervix (~2007) Endocarditis (~2001) Family History (Updated 10/01/23 @ 10:19 by Huong Lei RN) Father Hypertension Liver failure Alcoholism Mother Diabetes mellitus Squamous cell carcinoma Grandfather Alzheimer's disease Prediabetes Grandfather Hypertension Esophageal cancer Secondhand smoke exposure Grandmother Lung cancer Smoker Family/Other Breast cancer Colon cancer alcohol intake frequency: holidays/special occasions only Alcohol type: wine Substance Use Type: does not use Exam Narrative Exam Narrative: GENERAL: Well-developed patient, in mild distress. HEAD: Atraumatic. Normocephalic. EYES: Pupils equal round and reactive. Extraocular motions intact. No scleral icterus. No injection or drainage. ENT: Nose without bleeding, purulent drainage. Throat without erythema, tonsillar hypertrophy or exudate. Airway patent. NECK: Trachea midline. Non tender CARDIOVASCULAR: Regular rate and rhythm without murmurs, gallops, or rubs. RESPIRATORY: Clear to auscultation. Breath sounds equal bilaterally. No wheezes, rales, or rhonchi. GASTROINTESTINAL: Abdomen soft, non-tender, nondistended. EXTREMITIES: No edema or joint tenderness. BACK: Nontender without deformity or crepitance. No flank tenderness. NEURO: AOx3. SKIN: No rash or erythema of visible areas Initial Vital Signs Initial Vital Signs: Vital Signs Temperature 97.6 F 11/22/23 11:18 Pulse Rate 77 11/22/23 11:18 Respiratory Rate 18 11/22/23 11:18 Blood Pressure 135/74 11/22/23 11:18 Pulse Oximetry 98 11/22/23 11:18 Oxygen Delivery Method Room Air 11/22/23 11:18 Course Orders Ordered: Discontinued Medications Rho Immune Globulin (Rho(D) Immune Globulin 1,500 Unit Syringe) 1,500 unit IM NOW ONE Stop: 11/22/23 14:21 Last Admin: 11/22/23 15:08 Dose: 1,500 unit Documented By: JAMISON Vital Signs Vital signs: Vital Signs - 8 hr 11/22/23 11:18 11/22/23 12:12 11/22/23 12:13 Temperature 97.6 F Pulse Rate 77 76 78 Respiratory Rate 18 Blood Pressure 135/74 Pulse Oximetry 98 98 98 Oxygen Delivery Method Room Air 11/22/23 12:13 11/22/23 12:30 11/22/23 12:30 Temperature Pulse Rate 82 Respiratory Rate Blood Pressure 120/73 110/73 Pulse Oximetry 100 Oxygen Delivery Method Room Air 11/22/23 13:00 11/22/23 13:00 11/22/23 13:30 Temperature Pulse Rate 71 Respiratory Rate Blood Pressure 119/60 110/64 Pulse Oximetry 98 Oxygen Delivery Method 11/22/23 13:30 Temperature Pulse Rate 65 Respiratory Rate Blood Pressure Pulse Oximetry 99 Oxygen Delivery Method MDM - Female Genitourinary Lab Data Attestation: I reviewed the patient's lab results. 11/22/23 11:30 11/22/23 11:30 Labs: Lab Results 11/22/23 Range/Units 11:30 WBC 10.4 (4.5-11.0) X10^3/uL RBC 4.45 (4.0-5.2) X10^6/uL Hgb 13.3 (12.0-16.0) g/dL Hct 38.3 (36-46) % MCV 85.9 (80-100) fL MCH 29.8 (26-34) PG MCHC 34.7 (30-36) % RDW 13.3 (11.6-14.8) % Plt Count 246 (150-400) X10^3/uL Neut % (Auto) 73.2 (50-75) % Lymph % (Auto) 19.6 L (25-40) % Letcher % (Auto) 6.6 (3-14) % Eos % (Auto) 0.3 L (2-4) % Baso % (Auto) 0.3 (0-2) % Neut # (Auto) 7600 H (6717-3499) /uL Lymph # (Auto) 2000 (7980-5865) /uL Letcher # (Auto) 700 (0-900) /uL Eos # (Auto) 0 (0-450) /uL Baso # (Auto) 0 (0-100) /uL Sodium 136 L (137-145) mmol/L Potassium 4.1 (3.4-5.1) mmol/L Chloride 106 (98-107) mmol/L Carbon Dioxide 23 (22-32) mmol/L BUN 9 (7-17) mg/dL Creatinine 0.62 (0.52-1.04) mg/dL Estimated GFR > 60 (>60) mL/min BUN/Creatinine Ratio 14.5 (6-22) Glucose 94 (70-100) mg/dL Calcium 9.2 (8.4-10.2) mg/dL Total Bilirubin 0.5 (0.2-1.3) mg/dL AST 22 (14-36) IU/L ALT 19 (<35) IU/L Alkaline Phosphatase 57 (38-126) U/L Total Protein 6.8 (6.3-8.2) g/dL Albumin 4.0 (3.5-5.0) g/dL Globulin 2.8 (1.7-4.1) g/dL Albumin/Globulin Ratio 1.4 (1.0-2.8) HCG, Quant 30111 mIU/mL Blood Type B Negative Antibody Screen Negative Urine Dip Bedside Urine Glucose Negative Bedside Urine Bilirubin - Negative Bedside Urine Ketone - Negative Urine Specific [place] 1.025 Bedside Urine Occult Blood - Negative Bedside Urine pH 6.0 Bedside Urine Protein - Negative Bedside Urine Urobilinogen - Negative Bedside Urine Nitrite - Negative Bedside Urine Leukocytes - Negative Esterase Imaging Data US Pelvis: Radiologist's Impression: [place] [address] Ultrasound Report Signed Patient: Shaunna Lipscomb MR#: [id number] : 1990 Acct:[id number] Age/Sex: 33 / F Date of Service: 11/22/23 Loc: ED Accession Number: [id number] Procedure: US OB <= 14 weeks fetus Ordering Provider: Celio Pino MD PROCEDURE: US OB <= 14 WEEKS FETUS INDICATIONS: Vaginal spotting started 11/20/23 OUTSIDE/PRIOR DATING DATA: Last menstrual period (LMP): 324. LMP-based estimated date of delivery (YADY): 05/29/2024. First dating scan (date and location): 11/22/2023. Estimated date of delivery (YADY) from first dating scan: 05/31/2024 TECHNIQUE: Real-time scanning was performed of the fetus and maternal pelvic organs, with image documentation. Endovaginal scanning was also performed to better visualize the fetus and maternal ovaries. COMPARISON: None FINDINGS: Embryo: Single live intrauterine is present with crown-rump length measuring 6.3 cm corresponding to 12 weeks 5 days Heart rate: 155 beats per minute Maternal organs: Ovaries demonstrate corpus luteal cyst on the right measuring 2.2 x 1.7 x 1.4 cm. Distance from inferior placental tip to the os measures 1.5 cm in early gestational. IMPRESSION: Single live intrauterine with gestational age today of 12 weeks 5 days. Recommend follow-up imaging at 20-22 weeks for dates and anatomy. We strive to produce accurate, complete, and clear reports of imaging services. To assist us in improving patient care, this report was composed using standard report templates and voice recognition software. Therefore, it may contain abnormal punctuation, insertions and/or omissions. Occasional wrong-word or sound-alike substitutions may occur. Though we review the report and make efforts to correct it, we do recommend that the report be read carefully in proper context to recognize any text inaccuracies. Dictated by: Katharina Packer M.D. on 11/22/2023 at 13:13 Approved by: Katharina Packer M.D. on 11/22/2023 at 13:14 [facility] Narrative Medical decision making narrative: 33-year-old at 13 weeks' gestation, vaginal spotting for the last couple of days, believes that she is blood type/Rh B negative, has had RhoGAM in the past. ABO/Rh pending, hemoglobin pending. Ultrasound shows live intrauterine at 12 weeks 5 days' gestation, no gross abnormalities mentioned on ultrasound. Cervix long closed. Blood type B negative confirmed by labs drawn today, no old ABO/Rh found, IM RhoGAM ordered. We will contact her OB provider Dr. Raphael Case discussed with Dr. Raphael, clinically suspected threatened miscarriage, Rh negative, given RhoGAM, agrees with plan and treatment, follow up as planned with her next visit, return precautions, pelvic rest. This information relayed to patient, who agreed with plan. Critical Care Time Critical Care Time Critical Care Time: Yes Total Critical Care Time: 31 Attestation: The high probability of a clinically significant, sudden or life threatening deterioration of the [gynecologic/obstetric, cardiopulmonary] system(s) required my full and direct attention, intervention and personal management. The aggregate critical care time was [31] minutes. This time is in addition to time spent performing reported procedures but includes the following: [x] Data Review and interpretation [x] Patient assessment and monitoring of vital signs [x] Documentation [x] Medication orders and management Discharge Plan Departure Patient Disposition: Home Clinical Impression: Threatened miscarriage, Rh D negative blood type Activity Restrictions/Additional Instructions: Current 12 13 weeks' gestation, spotting for the last couple of days, vitals stable, hemoglobin level normal, blood type/Rh confirmed to be be negative as stated. Ultrasound showed live intrauterine proximally 12 weeks 5 days' gestation size. Blood type/Rh showed B-negative, intramuscular Rh immune globulin (RhoGAM) injection given. Case discussed with your obstetrics provider Dr. Mina, who agreed with above plan. She would like to see you as planned under next visit. Return precautions advised, pelvic rest advised, drink plenty of fluids. Return earlier to this/nearest emergency department for any change worsening symptoms or any concerns prior Prescriptions: No Action (DME) sharps container See Rx Instructions .Route .MEDSUPPLY Qty: 1 2RF Rx Instructions: for sharps disposal pyridoxine (vitamin B6) 25 mg tablet 25 mg PO BID Qty: 60 0RF doxylamine succinate 25 mg tablet 25 mg PO Q6H PRN (Reason: nasuea/vomiting) Qty: 60 0RF levothyroxine 100 mcg capsule 100 mcg PO DAILY Qty: 30 2RF DHA 200 mg capsule 200 mg PO DAILY PNV cmb#95-ferrous fumarate-FA [ Multivitamins] vitamin B complex [B Complex-Vitamin B12] Tablet 1 tab PO DAILY loratadine [Allergy Relief (loratadine)] 10 mg tablet 10 mg PO DAILY Probiotic Digestive Care 20 billion cell capsule 1 cell PO DAILY Referrals: Roxann Raphael MD [Primary Care Provider] - Stand Alone Forms: Patient Portal/API
[2023-11-22 12:39] LABS: HCG Quantitative /Beta subunit 62498 mIU/mL
[2023-11-22 13:00] VITALS: BP 119/60; PULSE 71; O2SAT 98
[2023-11-22 13:30] VITALS: BP 110/64; PULSE 65; O2SAT 99
[2023-11-22] MEDS: RHO(D) IMMUNE GLOBULIN 1,500 UNIT SYRINGE 1500 UNIT IM (15:08)
== END 2023-11-22 15:27 | disposition home or self-care (01) ==
PROVIDERS: Emergency Provider Emergency Medicine; PCP Family Medicine
DX: O20.0 Threatened abortion (principal); O26.891 Other specified pregnancy related conditions, first trimester; Z67.21 Type B blood, Rh negative; Z3A.12 12 weeks gestation of pregnancy
CPT/HCPCS: 36415; 76801; 76817; 80053; 81003; 84702; 85025; 86850; 86900; 86901; 96372; 99284; 99291; J2790

== ENCOUNTER → 2023-12-11 15:27 | Outpatient (CLI) | payer OTHER, SELFPAY ==
--- NOTE | 2023-12-12 10:22 | DIAB.GDA ---
Addendum entered by Monica Canas 12/17/23 15:26: Called pt due to her questions regarding timing of NPH. Also she reports her CGM is now better covered via insurance since starting insulin. Original Note: Initial Gestational Diabetes Assessment Name: Shaunna Lipscomb Date: 12/11/23 Time: 340-430p Dx: Gestational Diabetes Provider: Ijeoma YADY: 06/02/24 Weeks: 16 Shaunna presents for GDM initial visit. She is familiar to this RD from her last with GDM managed with insulin therapy in 2021/2022. Paying for CGM out of pocket at this time, pretty equivalent to coupon cost. States she is very limited in how much CHO she can eat without an elevation. Is on a very low CHO diet for . Has had wt loss as a result of limited CHO intake and aversion to protein until recently. Reports completion of 2hr OGTT from last with one elevated result. Diet Recall: 6-730a: eggs, low CHO tortilla and coffee with milk 1030a: cheese or nuts or jerky or mini banana muffin homemade with cheese 12-1p: low carb tortilla wrap with veg and protein 2-3p: same as 1030a 530p: meat and veggie +/- 2/3-3/4c quinoa OR burrito bowl with 1/2c rice and 1/4c beans 80oz water, 1 coffee with milk Anthropometrics: Ht: 61 Wt: 172.5# today at OB Prepregnancy wt: 180# Wt changes: wt loss likely r/t protein aversion + sticking to very low CHO diet for BG management Physical Activity: walking 4x per week 1-2 mi (40 min) at 930a after breakfast Self-Monitoring Blood Glucose: Wearing FSL3. Reports hyperglycemia with CHO intake. With very low CHO diet, can keep BG <140mg/dl later in the day. Pretty consistent elevations after breakfast. Some hypoglycemia <70mg/dl without DM meds. Seems related either to long period without eating or after hyperglycemia with over reaction from pancreas insulin production. Treats with gummy bears. Based on CGM report: 3/7 elevated FBG, 6/6 elevated post breakfast, 2/7 elevated after lunch, 3/7 elevated after dinner. May benefit from insulin therapy at this time. Date Pre Post Pre Post Pre Post HS 12/04 96 156 131 117 12/05 88 147 126 150 12/06 90 186 135 150 12/07 96 215 127 136 12/08 101 172 135 184 12/09 92 148 142 126 12/10 92 169 137 Diabetes Medications: None Pertinent Labs: Screen 178mg/dl 10/2023 Nutrition Rx: Carbohydrates: Meal: 45-g lunch and dinner; 30g breakfast Snack: 15-30g Nutrition Diagnosis: Altered nutrition related lab value r/t GDM dx aeb recent OGTT Inadequate CHO intake r/t hyperglycemia management aeb diet recall <175g CHO and BG logs Intervention: This participant was very receptive. Provided appropriate educational handouts. Discussed the following topics: Answered any questions regarding GDM and pathophysiology, though she is quite familiar Blood glucose goals (FBG: <95 and 1 hour <140 mg/dL or 2 hour <120mg/dl) Recommended servings for carbohydrates at meals and snacks Higher kcal options to mitigate wt loss Likely need for insulin therapy given strict diet and hyperglycemia Hypoglycemia tx if not on DM medications Hypoglycemia tx if <65 mg/dl Potential etiology of hypo Brainstormed appropriate meal plan based on her food preferences Role of physical activity and following provider guidelines for safety Goals: Make notes in CGM for times of FBG and 1 or 2 hour pc Choose some higher fat foods discussed today to mitigate wt loss at this time Enjoy proteins now that nausea has improved If 65-70mg/dl try balanced snack If <65 mg/dl can use Rule of 15 Follow-up: JUSTIN HAWK follow-up in one week via messaging for BG and two weeks 1:1 Monica Canas RDN, CARINE Certified Diabetes Care and Order Department Supervisor T: [phone] F: [phone] [email or web address] Thank you for this referral
== END ==
PROVIDERS: PCP Family Medicine; Referring Provider Family Medicine
DX: O24.419 Gestational diabetes mellitus in pregnancy, unspecified control (principal); Z3A.16 16 weeks gestation of pregnancy; Z71.3 Dietary counseling and surveillance
CPT/HCPCS: 97802

== ENCOUNTER → 2023-12-26 15:09 | Outpatient (CLI) | payer OTHER, SELFPAY ==
--- NOTE | 2023-12-26 17:16 | DIAB.GDFU ---
Follow-up Gestational Diabetes Assessment Name: Shaunna Lipscomb Date: 12/26/23 Time: 308-330p Dx: Gestational Diabetes Provider: Ijeoma YADY: 06/02/24 Weeks: 18 Shaunna presents for GDM follow-up virtually using Portal. Started NPH 5u BID on 12/18 Was having lows with 12 hour apart, now taking with dinner no longer having lows. If low after exercise, eating a snack or protein bar. Feels she can eat more now. Diet Recall: 7-730a: eggs, Croatian muffin, and coffee with milk OR avocado toast 1030a: dates and meat stick or protein drink 12-1p: leftovers OR snack plate with hummus, mini naans, snap peas, meat 2-3p: protein bar OR nuts OR cheese 530p: 1/2-3/4c rice bowls OR potato salad, ribs OR 80oz water, 1 coffee with milk Anthropometrics: Ht: 61 Wt: 172-173# reported Prepregnancy wt: 180# Wt changes: Wt stable since last visit Physical Activity: walking 4x per week 1-2 mi (40 min) at 930a after breakfast Self-Monitoring Blood Glucose: Wearing FSL3. Much improved FBG since starting insulin. FBG running mostly in the 80s and <95mg/dl. A couple lows, but resolved after moving NPH pre dinner. One 97mg/dl FBG elevation. Recent pc numbers mostly <140mg/dl with a few up to 160mg/dl. TIR: 5% above 140 mg/dl 94% in range 1% below 70mg/dl av mg/dl Diabetes Medications: 5u NPH BID Pertinent Labs: Screen 178mg/dl 10/2023 Nutrition Rx: Carbohydrates: Meal: 30-45-g lunch and dinner; 30g breakfast Snack: 15-30g Nutrition Diagnosis: Altered nutrition related lab value r/t GDM dx aeb recent OGTT Inadequate CHO intake r/t hyperglycemia management aeb diet recall <175g CHO and BG logs - improved/in progress Intervention: This participant was very receptive. Provided appropriate educational handouts. Discussed the following topics: Recent blood sugar results and impact of food and hormones Discussed recs for CHO intake during Encouraged complex carbs added to protein snacks Tx lows review Goals: Make notes in CGM for times of FBG and 1 or 2 hour pc- met Choose some higher fat foods discussed today to mitigate wt loss at this time- met Enjoy proteins now that nausea has improved- met If 65-70mg/dl try balanced snack - met If <65 mg/dl can use Rule of 15- continue Add fruit to afternoon snack- new Follow-up: JUSTIN HAWK follow-up in one week via messaging and 3 weeks 1:1. Sees OB in two weeks Monica Canas RDN, [facility] Certified Diabetes Care and Towboat Pilot T: [phone] F: [phone] [email or web address] Thank you for this referral
== END ==
PROVIDERS: PCP Family Medicine; Referring Provider Family Medicine
DX: O24.414 Gestational diabetes mellitus in pregnancy, insulin controlled (principal); Z3A.18 18 weeks gestation of pregnancy; Z71.3 Dietary counseling and surveillance
CPT/HCPCS: 97803

== ENCOUNTER → 2023-12-31 16:18 | Outpatient (CLI) | payer OTHER, SELFPAY ==
--- NOTE | 2023-12-31 16:19 | DI.US.S_ITS ---
PROCEDURE: US OB >= 14 WEEKS FETUS INDICATIONS: growth OUTSIDE/PRIOR DATING DATA: Last menstrual period (LMP): 08/23/2023. LMP-based estimated date of delivery (YADY): 05/29/2024 First dating scan (date and location): 11/22/2023 Estimated date of delivery (YADY) from first dating scan: 06/02/2024 The calculations are made using the working YADY of 06/02/2024. TECHNIQUE: Real-time scanning was performed of the fetus, with image documentation and biometric measurements. Endovaginal scanning: Not indicated COMPARISON: [facility], OB >= 14 WEEKS FETUS, 03/02/2022, 9:29. FINDINGS: General: A single living intrauterine gestation is present. Presentation: Vertex Placenta: Placental position is posterior, without previa. Amniotic fluid index: 17.4 cm, normal range is 5-24 cm. Single deepest vertical pocket is 5.0 cm. heart rate: 149 beats per minute. Maternal cervical canal: Closed and measures 4.1 cm long. Normal lower limit is 2.5 cm. biometrics: Biparietal diameter: 4.4 cm, 19 weeks, 1 day Head circumference: 16.0 cm, 18 weeks, 6 days Abdominal circumference: 13.0 cm, 18 weeks, 4 days Femur length: 2.8 cm, 18 weeks, 3 days Clinically estimated gestational age: 18 weeks, 0 day Composite gestational age from present scan: 18 weeks, 5 days Estimated weight and percentile: 245 g, 78% Anatomic survey: Neuro: Ventricles are non-dilated at less than 10 mm. Cisterna magna is normal at 3-11 mm. Cerebellum is normal in size and morphology. Nuchal skin fold: Normal at less than 6 mm between 14-21 weeks gestational age. Face: Nose and lips, facial profile are normal. Spine: No evidence for spina bifida. Heart: 4-chambered heart is present, with normal ventricular outflow tracts. Diaphragm: Diaphragm is intact. Stomach: Left-sided stomach is present. Kidneys: No hydronephrosis. Normal is less than 5 mm in 2nd trimester, less than 7 mm in 3rd trimester. Cord: 3-vessel cord has orthotopic insertion. Bladder: Normal in size. Extremities: All 4 extremities identified. IMPRESSION: 1. Single live intrauterine gestation with fetus in vertex presentation. heart rate is 149 beats per minute. Normal amount of amniotic fluid. EB equals 17.4 cm. Normal growth. Estimated weight is at 78%. 2. Normal anatomic survey. We strive to produce accurate, complete, and clear reports of imaging services. To assist us in improving patient care, this report was composed using standard report templates and voice recognition software. Therefore, it may contain abnormal punctuation, insertions and/or omissions. Occasional wrong-word or sound-alike substitutions may occur. Though we review the report and make efforts to correct it, we do recommend that the report be read carefully in proper context to recognize any text inaccuracies. Dictated by: Carlton Gibson M.D. on 12/31/2023 at 21:12 Approved by: Carlton Gibson M.D. on 12/31/2023 at 21:15
== END ==
PROVIDERS: PCP Family Medicine; Referring Provider Family Medicine; Visit Provider Family Medicine
DX: Z34.82 Encounter for supervision of other normal pregnancy, second trimester (principal); Z3A.18 18 weeks gestation of pregnancy
CPT/HCPCS: 76811

== ENCOUNTER → 2024-01-15 15:45 | Outpatient (CLI) | payer OTHER, SELFPAY ==
--- NOTE | 2024-01-15 16:43 | DIAB.GDFU ---
Follow-up Gestational Diabetes Assessment Name: Shaunna Lipscomb Date: 01/15/24 Time: 4-430p Dx: Gestational Diabetes Provider: Ijeoma YADY: 06/02/24 Weeks: 20 Shaunna presents for GDM follow-up. Saw OB last week. NPH 10u am and 5u pm. Still having elevations often after breakfast. States most FBG are in goal, but hard to see on CGM with ranges given that are sometimes >95mg/dl. Per diet recall eating 30g CHO at most meals and always pairing with protein. Some snacks missing carb portion, which may be a missed opportunity for nutrition given limited carb intake at meals. Endorses some frustration with morning numbers after breakfast being elevated despite 30g CHO or less breakfast. May benefit from increased NPH HS or meal time insulin at breakfast. Anthropometrics: Ht: 61 Wt: 172# 01/08/24 at OB (down 8oz from previous OB visit) Prepregnancy wt: 180# Wt changes: Wt fairly stable since last visit Physical Activity: walking 4x per week 1-2 mi (40 min) at 930a after breakfast Self-Monitoring Blood Glucose: Wearing FSL3. Sometimes elevated after lunch or dinner. More frequently elevated after breakfast, ranging from 125-189mg/dl at peak postprandial. FBG seem to be in range but difficult to see with FSL showing two values when she notes fasting, ie 94 and 105mg/dl. Encouraged adding what value is shown in her note within CGM. Today TIR: 6% above 140 mg/dl 93% in range 1% below 70mg/dl av mg/dl Last TIR: 5% above 140 mg/dl 94% in range 1% below 70mg/dl av mg/dl Diabetes Medications: 10u NPH AM 5u NPH PM Pertinent Labs: Screen 178mg/dl 10/2023 Nutrition Rx: Carbohydrates: Meal: 30-45-g lunch and dinner; 30g breakfast Snack: 15-30g Nutrition Diagnosis: Altered nutrition related lab value r/t GDM dx aeb recent OGTT Inadequate CHO intake r/t hyperglycemia management aeb diet recall <175g CHO and BG logs - improved/in progress Intervention: This participant was very receptive. Provided appropriate educational handouts. Discussed the following topics: Recent blood sugar results and impact of food and hormones Discussed adding small portions of CHO to afternoon snack more consistently to meet nutrition recs Medication management: Encouraged her to message provider if she is feeling overly restricted at breakfast due to blood sugars and/or continues to have hyperglycemia at this time of day. Potential for increasing evening NPH or adding meal time insulin at breakfast. Goals: Add fruit to afternoon protein snack- in progress Note FBG number in documentation within CGM- new Message OB prn if feeling overly restricted at breakfast due to elevations- new Follow-up: JUSTIN HAWK follow-up in two weeks via messaging and 4 weeks 1:1 or sooner prn. Monica Canas RDN, [facility] Certified Diabetes Care and Laundry Presser T: [phone] F: [phone] [email or web address] Thank you for this referral
== END ==
PROVIDERS: PCP Family Medicine; Referring Provider Family Medicine
DX: O24.414 Gestational diabetes mellitus in pregnancy, insulin controlled (principal); Z3A.20 20 weeks gestation of pregnancy; Z71.3 Dietary counseling and surveillance
CPT/HCPCS: 97803

== ENCOUNTER → 2024-02-03 07:50 | Outpatient (CLI) | payer OTHER, SELFPAY ==
--- NOTE | 2024-02-03 07:51 | DI.US.S_ITS ---
PROCEDURE: US OB FOLLOW UP INDICATIONS: growth OUTSIDE/PRIOR DATING DATA: Last menstrual period (LMP): 08/23/2023. LMP-based estimated date of delivery (YADY): 05/29/2024. First dating scan (date and location): 11/22/2023. Estimated date of delivery (YADY) from first dating scan: 06/02/2024. TECHNIQUE: Real-time scanning was performed of the fetus, with image documentation and biometric measurements. Endovaginal scanning: Not performed COMPARISON: [facility], OB FOLLOW UP, 07/09/2022, 14:20. FINDINGS: General: A single living intrauterine gestation is present. Presentation: Transverse. Placenta: Placental position is posterior , without previa. Amniotic fluid index: 17.7 cm, normal range is 5-24 cm. Single deepest vertical pocket is 5.0 cm. heart rate: 150 beats per minute. Maternal cervical canal: 4 cm long. Normal lower limit is 2.5 cm. biometrics: Biparietal diameter: 5.7 centimeters, 23 weeks 4 days Head circumference: 21.1 centimeters, 23 weeks 1 day Abdominal circumference: 18.2 centimeters, 23 weeks 0 days Femur length: 4.0 centimeters, 22 weeks 6 days Clinically estimated gestational age: 22 weeks 6 days Composite gestational age from present scan: 23 weeks 1 day Estimated weight and percentile: 553 grams, 49th percentile Other: Not applicable. IMPRESSION: Single living intrauterine at 22 weeks 6 days, YADY of 06/02/2024. Estimated weight of 553 grams, 49th percentile. We strive to produce accurate, complete, and clear reports of imaging services. To assist us in improving patient care, this report was composed using standard report templates and voice recognition software. Therefore, it may contain abnormal punctuation, insertions and/or omissions. Occasional wrong-word or sound-alike substitutions may occur. Though we review the report and make efforts to correct it, we do recommend that the report be read carefully in proper context to recognize any text inaccuracies. Dictated by: Blaine Wylie M.D. on 02/03/2024 at 14:48 Approved by: Blaine Wylie M.D. on 02/03/2024 at 14:50
== END ==
LOC: US 07:50
PROVIDERS: PCP Family Medicine; Referring Provider Family Medicine; Visit Provider Family Medicine
DX: O24.414 Gestational diabetes mellitus in pregnancy, insulin controlled (principal); Z3A.22 22 weeks gestation of pregnancy
CPT/HCPCS: 36415; 76816; 82105; 82677; 84443; 84702; 86336

== ENCOUNTER → 2024-02-03 08:26 | Outpatient (CLI) | payer OTHER, SELFPAY ==
[2024-02-03 10:40] LABS: Thyroid Stimulating Hormone 1.31 uIU/mL (0.47-4.68)
== END ==
LOC: LAB 08:27
PROVIDERS: PCP Family Medicine; Referring Provider Family Medicine; Visit Provider Family Medicine
DX: O24.419 Gestational diabetes mellitus in pregnancy, unspecified control (principal); E03.9 Hypothyroidism, unspecified
CPT/HCPCS: 36415; 82105; 82677; 84443; 84702; 86336

== ENCOUNTER → 2024-02-12 08:55 | Outpatient (CLI) | payer OTHER, SELFPAY ==
--- NOTE | 2024-02-12 17:31 | DIAB.GDFU ---
Follow-up Gestational Diabetes Assessment Name: Shaunna Lipscomb Date: 02/12/24 Time: 9-930a Dx: Gestational Diabetes YADY: 06/02/24 Weeks: 24 Shaunna presents for GDM follow-up. Saw OB recently and adjusted NPH due to lows. No longer having frequent highs after breakfast. Able to now eat more adequately with CHO intake for . Continues pairing meals/snacks macros. States sometimes skips snacks, which may result in low prior to eating. Does not carry low treatment, ie gel, tabs, honey, on her when away from home. Diet recall: 730a: bun with avocado and eggs 1030a: nothing 12-1p: leftovers 2-3p: yogurt bowl 530p: beef, starch 3/4-1c, veggies 830p: yogurt bowl or apple with yogurt and pb water 80oz coffee 1c Anthropometrics: Ht: 61 Wt: 174# 02/11/24 at OB 172# 01/08/24 Prepregnancy wt: 180# Physical Activity: last visit was walking 4x per week 1-2 mi (40 min) at 930a after breakfast. Not discussed today. Self-Monitoring Blood Glucose: Wearing FSL3. Frequent lows between meals and sometimes overnight. Much less elevations since last visit, but increased hypoglycemia. Reduced AM NPH with provider. May even need to d/c HS dose if BG in the morning/overnight continue to be low. Often waking with FBG in the 70s this past week. Low symptoms: depleted, hunger, fatigue Today TIR: 3% above 140 mg/dl 89% in range 8% below 70mg/dl av mg/dl GMI: 5.5% Variance 22.1% Last TIR: 6% above 140 mg/dl 93% in range 1% below 70mg/dl av mg/dl Diabetes Medications: 8u NPH AM 5u NPH PM Pertinent Labs: Screen 178mg/dl 10/2023 Nutrition Rx: Carbohydrates: Meal: 30-45-g lunch and dinner; 30g breakfast Snack: 15-30g Nutrition Diagnosis: Altered nutrition related lab value r/t GDM dx aeb recent OGTT Inadequate CHO intake r/t hyperglycemia management aeb diet recall <175g CHO and BG logs - improved Nutrition and food related knowledge deficit r/t needing review of treating lows and keeping tx on self aeb pt report- new Intervention: This participant was very receptive. Provided appropriate educational handouts. Discussed the following topics: Recent blood sugar results and impact of food and hormones Nutrition recs for Treating lows <70mg/dl Keeping quick acting carbs for lows on the go Consistency with meals/snacks to prevent lows Goals: Add fruit to afternoon protein snack- met Note FBG number in documentation within CGM- met Message OB prn if feeling overly restricted at breakfast due to elevations- d/c Have snacks more consistently between meals- new Keep low tx on you- new Follow-up: JUSTIN HAWK follow-up in two weeks via 1:1 and will check CGM in one week. Messaged OB provider about trends and provided CGM report. May also want to switch to Dexcom G7 due to added alerts prior to lows. Consideration may be given also to holding HS NPH at this time due to 70s FBG. Monica Canas RDN, [facility] Certified Diabetes Care and User Interface Developer T: [phone] F: [phone] [email or web address] Thank you for this referral
== END ==
PROVIDERS: PCP Family Medicine; Referring Provider Family Medicine
DX: O24.414 Gestational diabetes mellitus in pregnancy, insulin controlled (principal); Z3A.24 24 weeks gestation of pregnancy; Z71.3 Dietary counseling and surveillance
CPT/HCPCS: 97803

== ENCOUNTER → 2024-02-27 08:49 | Outpatient (CLI) | payer OTHER, SELFPAY ==
--- NOTE | 2024-02-27 16:49 | DIAB.GDFU ---
Follow-up Gestational Diabetes Assessment Name: Shaunna Lipscomb Date: 02/27/24 Time: a Dx: Gestational Diabetes Provider: Ijeoma YADY: 06/02/24 Weeks: 26 Shaunna presents for GDM follow-up. Reports continued focus on balancing meals/snacks with adequate CHO/pro combinations. Reduced lows with lower NPH HS. Has Dexcom G7 sensors to peanut picker at pharmacy today. Now keeping sugar gummies on her for potential lows. Also keeping snacks on her to prevent long periods of fasting, which sometimes would result in lows in the 60s. Reports feeling shaky and weak around 70mg/dl. Anthropometrics: Ht: 61 Wt: 174# 02/11/24 at OB 172# 01/08/24 Prepregnancy wt: 180# Physical Activity: Walking daily pre dinner. Workout class on Mondays. Self-Monitoring Blood Glucose: Wearing FSL3 and plans to switch to G7. TIR improved with less lows. Elevatoins slightly up, but most in range. After breakfast seems to be difficult again. Adjusting breakfast to compensate. Recent FBG 87, 89, 92, 82, 88, 5, 97. Today TIR: 5% above 140 mg/dl 94% in range 1% below 70mg/dl av mg/dl GMI: 5.7% Variance 21.2% Last TIR: 3% above 140 mg/dl 89% in range 8% below 70mg/dl av mg/dl GMI: 5.5% Variance 22.1% Diabetes Medications: 8u NPH AM 5u NPH PM Pertinent Labs: Screen 178mg/dl 10/2023 Intervention: This participant was very receptive. Provided appropriate educational handouts. Discussed the following topics: Recent blood sugar results and impact of food and hormones Nutrition recs for Physical activity Goals: Have snacks more consistently between meals- met Keep low tx on you- met Follow-up: JUSTIN HAWK follow-up in two weeks via 1:1 and will check CGM in one week. Monica Canas RDN, [facility] Certified Diabetes Care and Airplane Fueler T: [phone] F: [phone] [email or web address] Thank you for this referral
== END ==
PROVIDERS: PCP Family Medicine; Referring Provider Family Medicine
DX: O24.414 Gestational diabetes mellitus in pregnancy, insulin controlled (principal); Z3A.26 26 weeks gestation of pregnancy
CPT/HCPCS: G0108

== ENCOUNTER → 2024-03-03 07:02 | Outpatient (CLI) | payer OTHER, SELFPAY ==
--- NOTE | 2024-03-03 07:02 | DI.US.S_ITS ---
PROCEDURE: US OB LIMITED INDICATIONS: GESTATIONAL DIABETES - GROWTH OUTSIDE/PRIOR DATING DATA: Last menstrual period (LMP): 08/23/2023 LMP-based estimated date of delivery (YADY): 05/29/2024 First dating scan (date and location): 11/22/2023. Estimated date of delivery (YADY) from first dating scan: 05/21/2024 The calculations are made using the working YADY of 05/23/2024 TECHNIQUE: Real-time scanning was performed of the fetus, with image documentation and biometric measurements. Endovaginal scanning: Performed. COMPARISON: [facility], OB >= 14 WEEKS FETUS, 12/31/2023, 16:36. [facility], OB FOLLOW UP, 02/03/2024, 8:05. FINDINGS: General: A single living intrauterine gestation is present. Presentation: Vertex Placenta: Placental position is posterior, without previa. Amniotic fluid index: 19.6 cm, normal range is 5-24 cm. Single deepest vertical pocket is 5.7 cm. heart rate: 158 beats per minute. Maternal cervical canal: Closed and measures 2.2 cm with contraction in the lower uterine segment and 2.5 cm in length without the contraction. biometrics: Biparietal diameter: 7.4 cm, 29 weeks, 3 days. Head circumference: 26.5 cm, 28 weeks, 6 days. Abdominal circumference: 21.6 cm, 26 weeks, 1 day. Femur length: 4.9 cm, 26 weeks, 4 days. Clinically estimated gestational age: 27 weeks, 0 day Composite gestational age from present scan: 27 weeks, 5 days Estimated weight and percentile: 972 grams, 27 percent IMPRESSION: 1. Single live intrauterine gestation with fetus in vertex presentation. heart rate is 158 beats per minute. Normal amount of amniotic fluid. EB measures 19.6 cm. Estimated weight is at 27 percent. 2. Cervix is closed. Cervical length measures 2.2 cm with contraction in the lower uterine segment and 2.5 cm in length without the contraction. We strive to produce accurate, complete, and clear reports of imaging services. To assist us in improving patient care, this report was composed using standard report templates and voice recognition software. Therefore, it may contain abnormal punctuation, insertions and/or omissions. Occasional wrong-word or sound-alike substitutions may occur. Though we review the report and make efforts to correct it, we do recommend that the report be read carefully in proper context to recognize any text inaccuracies. Dictated by: Carlton Gibson M.D. on 03/03/2024 at 8:39 Approved by: Carlton Gibson M.D. on 03/03/2024 at 8:45
== END ==
LOC: US 07:02
PROVIDERS: PCP Family Medicine; Referring Provider Family Medicine; Visit Provider Family Medicine
DX: Z36.89 Encounter for other specified antenatal screening (principal); Z3A.27 27 weeks gestation of pregnancy
CPT/HCPCS: 76815; 76817

== ENCOUNTER → 2024-03-04 09:21 | Outpatient (CLI) | payer OTHER, SELFPAY | PROVIDERS: PCP Family Medicine; Referring Provider Family Medicine; Visit Provider Family Medicine | DX: Z34.80 Encounter for supervision of other normal pregnancy, unspecified trimester (principal) | CPT/HCPCS: 36415; 86850 ==

== ENCOUNTER → 2024-03-11 13:01 | Outpatient (CLI) | payer OTHER, SELFPAY ==
--- NOTE | 2024-03-12 10:06 | DIAB.GDFU ---
Follow-up Gestational Diabetes Assessment Name: Shaunna Lipscomb Date: 03/11/24 Time: 1-140p Dx: Gestational Diabetes Provider: Ijeoma YADY: 06/02/24 Weeks: 28-29 Shaunna presents for GDM follow-up virtually using [facility] Some labor symptoms. Limitations on physical activity by OB provider as a result. Did have a low recently, likely pressure low per report. Symptoms of lows usually feeling depleted and almost shaky, woozy. Reports some difficulty with Dexcom sensor recently. Showing some double peaks in BG graphs, which is different than usual patterns. Encouraged her to replace CGm sensor if needed. Ijeoma appt q 2 weeks (03/18) NPH 8 am and 5 pm continued. She may be a good candidate for pump therapy. RD will reach out to [employer] for pump info Endorses continued balanced meal/snacks. Anthropometrics: Ht: 61 Wt: 175# 03/04/24 at OB 174# 02/11/24 172# 01/08/24 Prepregnancy wt: 180# Physical Activity: Limited. Self-Monitoring Blood Glucose: Switched CGM systems to Dexcom with better hypoglycemia alarms and ability to be more precise in documenting FBG and hx of BG specifics. Very similar TIR, but increased lows which may be false lows per report. FBG continue in goal. Today TIR: 5% above 140 mg/dl 93% in range 2% below 70mg/dl <1% very low av mg/dl GMI: 5.7% Variance 22.3% Last TIR: 5% above 140 mg/dl 94% in range 1% below 70mg/dl av mg/dl GMI: 5.7% Variance 21.2% Diabetes Medications: 8u NPH AM 5u NPH PM Pertinent Labs: Screen 178mg/dl 10/2023 Intervention: This participant was very receptive. Provided appropriate educational handouts. Discussed the following topics: Recent blood sugar results and trends Troubleshooting new CGM sensor Resources for replacement of sensor prn Potential for insulin pump therapy if OB provider agrees pros/cons, indications Goals: Have snacks more consistently between meals- met Keep low tx on you- met Replace CGM sensor prn- new Follow-up: JUSTIN HAWK follow-up in two weeks; OB in one week. Monica Canas RDN, [facility] Certified Diabetes Care and Emergency Management Director T: [phone] F: [phone] [email or web address] Thank you for this referral
== END ==
PROVIDERS: PCP Family Medicine; Referring Provider Family Medicine
DX: O24.414 Gestational diabetes mellitus in pregnancy, insulin controlled (principal); Z3A.28 28 weeks gestation of pregnancy; Z71.3 Dietary counseling and surveillance
CPT/HCPCS: G0108

== ENCOUNTER → 2024-03-26 12:58 | Outpatient (CLI) | payer OTHER, SELFPAY ==
--- NOTE | 2024-03-27 13:41 | DIAB.GDFU ---
Follow-up Gestational Diabetes Assessment Name: Shaunna Lipscomb Date: 03/26/24 Time: 1-130p Dx: Gestational Diabetes Provider: Ijeoma YADY: 06/02/24 Weeks: 30-31 Sahunna presents for GDM follow-up virtually using [facility] Portal labor symptoms have reportedly improved. Limitations on physical activity. Open to pump therapy but does have questions. Spoke with [employer]. Today we will discuss pros/cons to starting pump therapy at this time to help her decide if this is something she would like to do. States her insurance is requiring a 12 month rent to own option for a year, which does not seem needed given her diabetes is only during . Reports that she feels she needs mealtime insulin. Spreading out food portions to keep her BG in range. ?Eating all day? in small portions. Balancing CHO and pro. Still having elevations. Today at 11am, 30g bun with 2 small burger patties and grande and BG 163mg/dl. Dinner last night, rice noodle strange mein x <1c with chicken and large portion of veggies. B: 2 eggs, meat, and 15g CHO bread and avocado Anthropometrics: Ht: 61 Wt: 176# 03/18/24 at OB 175# 03/04/24 174# 02/11/24 172# 01/08/24 Prepregnancy wt: 180# Physical Activity: Limited. Self-Monitoring Blood Glucose: No longer having sensor issues. Time in range indicates increased hyperglycemia since last visit with >140mg/dl 1-3x per day. FBG often in the 90s but in goal. Today TIR: 7% above 140 mg/dl 91% in range 2% below 70mg/dl <1% very low av mg/dl GMI: 5.8% Variance 21.2% Last TIR: 5% above 140 mg/dl 93% in range 2% below 70mg/dl <1% very low av mg/dl GMI: 5.7% Variance 22.3% Diabetes Medications: 8u NPH AM 5u NPH PM Pertinent Labs: Screen 178mg/dl 10/2023 Intervention: This participant was very receptive. Provided appropriate educational handouts. Discussed the following topics: Recent blood sugar results and trends Potential for starting MDI for meal time insulin Pros/cons of insulin pump therapy Pump cost Pump payment potential plans Pros to reduced injections and blood sugar management Goals: Replace CGM sensor prn- met Call insurance about payment options for pump therapy- new Contact [employer] with your decision- new Follow-up: JUSTIN HAWK follow-up in two weeks. ARTUR/CARINE messaged OB provider about meal time insulin request. Monica Canas RDN, CARINE Certified Diabetes Care and Trial Judge T: [phone] F: [phone] [email or web address] Thank you for this referral
== END ==
PROVIDERS: PCP Family Medicine; Referring Provider Family Medicine
DX: O24.414 Gestational diabetes mellitus in pregnancy, insulin controlled (principal); Z3A.30 30 weeks gestation of pregnancy; Z71.3 Dietary counseling and surveillance
CPT/HCPCS: G0108

== ENCOUNTER → 2024-03-27 07:03 | Outpatient (CLI) | payer OTHER, SELFPAY ==
--- NOTE | 2024-03-27 07:03 | DI.US.S_ITS ---
PROCEDURE: US OB LIMITED INDICATIONS: growth OUTSIDE/PRIOR DATING DATA: Last menstrual period (LMP): 08/23/23. LMP-based estimated date of delivery (YADY): 05/29/24. First dating scan (date and location): 11/22/23. Estimated date of delivery (YADY) from first dating scan: 05/31/24. The calculations are made using the working YADY of 06/02/24. TECHNIQUE: Real-time scanning was performed of the fetus, with image documentation. Endovaginal scanning: Performed for improved cervical detail [facility]24, 7:12. FINDINGS: General: A single living intrauterine gestation is present. Presentation: Vertex. Placenta: Placental position is posterior , without previa. Amniotic fluid index: 15.2 cm, normal range is 5-24 cm. Single deepest vertical pocket is 5.5 cm. heart rate: 125 beats per minute. Maternal cervical canal: Closed and 3.0 cm long. Normal lower limit is 2.5 cm. Biparietal diameter 8.3 cm, 33 weeks three days, 98th percentile, previously at the 97th percentile Head circumference 29.2 cm, 32 weeks one day Abdominal circumference 25.4 cm, 29 weeks four days Femur length 5.9 cm, 30 weeks four days Clinically estimated gestational age: 30 weeks three days Estimated gestational age from initial scan: 31 weeks three days. Estimated weight 1577 g, 38th percentile Possible partial Single nuchal cord IMPRESSION: Single living intrauterine with growth one week ahead of the expected gestational age. Biparietal diameter is at the 90th percentile, previously at the 97th percentile. Estimated weight at the 38th percentile. Closed cervix and normal amniotic fluid volume. We strive to produce accurate, complete, and clear reports of imaging services. To assist us in improving patient care, this report was composed using standard report templates and voice recognition software. Therefore, it may contain abnormal punctuation, insertions and/or omissions. Occasional wrong-word or sound-alike substitutions may occur. Though we review the report and make efforts to correct it, we do recommend that the report be read carefully in proper context to recognize any text inaccuracies. Dictated by: Richelle Diaz M.D. on 03/27/2024 at 13:26 Approved by: Richelle Diaz M.D. on 03/27/2024 at 13:32
== END ==
PROVIDERS: PCP Family Medicine; Referring Provider Family Medicine; Visit Provider Family Medicine
DX: O24.419 Gestational diabetes mellitus in pregnancy, unspecified control (principal); Z3A.30 30 weeks gestation of pregnancy
CPT/HCPCS: 76815; 76817

== ENCOUNTER → 2024-04-01 10:31 | Outpatient (CLI) | payer OTHER, SELFPAY ==
[2024-04-01 12:54] LABS: Thyroid Stimulating Hormone 1.08 uIU/mL (0.47-4.68)
== END ==
LOC: LAB 10:32
PROVIDERS: PCP Family Medicine; Referring Provider Family Medicine; Visit Provider Family Medicine
DX: E03.9 Hypothyroidism, unspecified (principal)
CPT/HCPCS: 36415; 84443

== ENCOUNTER 2024-04-08 07:52 | Observation (INO) | payer OTHER, SELFPAY ==
--- NOTE | 2024-04-08 08:24 | PM.OBTRLD ---
Visit Information Visit Information Date of evaluation: 04/08/24 Primary OB Provider: Roxann Raphael Comments/Additional reasons for admission: 33yo at 32w1d here for NST for GDMA2. Feeling baby move regularly. No vaginal bleeding, contractions, LOF. [facility] Medical History (Updated 01/08/24 @ 14:36 by Roxann Raphael MD) History of hysterosalpingogram Asthma (~1992) Infertility Anovulation Gestational diabetes Miscarriage (~12/2019) Chicken pox (~1991) Abnormal Pap smear of cervix (~2007) Endocarditis (~2001) Family History (Updated 10/01/23 @ 10:19 by Huong Lei RN) Father Hypertension Liver failure Alcoholism Mother Diabetes mellitus Squamous cell carcinoma Grandfather Alzheimer's disease Prediabetes Grandfather Hypertension Esophageal cancer Secondhand smoke exposure Grandmother Lung cancer Smoker Family/Other Breast cancer Colon cancer Social History marital status: number of children: 1 household members: spouse, family ([id number]) and children lives independently: Yes caregiver/support person: Yes housing: house pets and animals: Yes (3 dogs) education level: college (some college) occupational status: unemployed current occupational exposures/hazards: No special [place] needs: No travel history: recent ([place] only) seatbelt use: always helmet use: Yes water heater temp set < 120 deg: Yes working smoke detector in home: Yes fire extinguisher in home: Yes carbon monox detector in home: Yes firearms in home: Yes firearms unloaded and locked: Yes do you feel safe at home: Yes Smoking Status: Former smoker Tobacco: How many years used: 5 (off-an-on social smoker ) second hand exposure: No alcohol intake: former (~3 glasses wine/week when not ) substance use type: marijuana (previously) during the past year weight has: other (About same weight as at time of delivery (dtr ~14 months old) d/t thyroid issues) well-balanced diet: daily or most days daily servings fruits/ve or more times/day caffeine: Yes (AM cup coffee, sometimes single cup green tea in afternoon) Type(s) of exercise: walking, bicycling, weight lifting and other (hiking) frequency: 3-4 times per week Evaluation Evaluation Baseline heart rate: 135 Variability: Moderate (11-25) monitor accelerations: Present Monitor Decelerations: Absent Category of Tracing: Reactive Diagnosis, Plan/Disposition Final Diagnosis (1) Gestational diabetes mellitus (GDM): Status: Acute Plan/Disposition Plan: 33yo at 32w1d here for NST for GDMA2. NST reactive. Stable for d/c home. Continue testing. OB Disposition: home
== END 2024-04-08 08:29 | disposition home or self-care (01) ==
LOC: LABOR 07:54
PROVIDERS: Admitting Provider Family Medicine; PCP Family Medicine; Referring Provider Family Medicine; Visit Provider Family Medicine
DX: O24.414 Gestational diabetes mellitus in pregnancy, insulin controlled (principal); Z3A.32 32 weeks gestation of pregnancy
CPT/HCPCS: 59025; G0378; G0379

== ENCOUNTER → 2024-04-09 08:59 | Outpatient (CLI) | payer OTHER, SELFPAY ==
--- NOTE | 2024-04-09 09:00 | DIAB.GDFU ---
Follow-up Gestational Diabetes Assessment Name: Shaunna Lipscomb Date: 04/09/24 Time: 9930a Dx: Gestational Diabetes Provider: Ijeoma YADY: 06/02/24 Weeks: 33 Shaunna presents for GDM follow-up virtually using Portal Reports starting mealtime insulin injections. Decided to not go with pump therapy since there was a month bill over one year for this. With only about 2 months to go, she has decided to forego this option understandably. Diet recall indicate low to moderate CHO intake, all within recs. Did see quick elevation with ramen noodles and spring roll, even with protein and veg. Still having elevations in the 160-180s, but then having lows in the 55-70 range. Asking if she should take insulin after meal, however this may increase risk of highs and lows. Currently taking right at the start of her meal. Also having more evening lows in the 50s recently. Recent US indicates WNL amniotic fluid and 38th percentile weight. Anthropometrics: Ht: 61 Wt: 178# 04/01/24 176# 03/18/24 175# 03/04/24 174# 02/11/24 172# 01/08/24 Prepregnancy wt: 180# Physical Activity: Limited. Self-Monitoring Blood Glucose: TIR indicating same amount of hyperglycemia as last visit, but also excessive hypoglycemia. Likely needs reduction in NPH given lows in the night and lows between meals. Today TIR: 7% above 140 mg/dl 87% in range 5% below 70mg/dl 1% very low av mg/dl GMI: 5.7% Variance 25.1% Last TIR: 7% above 140 mg/dl 91% in range 2% below 70mg/dl <1% very low av mg/dl GMI: 5.8% Variance 21.2% Diabetes Medications: 8u NPH AM 5u NPH PM 2u Aspart TID Pertinent Labs: Screen 178mg/dl 10/2023 Intervention: This participant was very receptive. Provided appropriate educational handouts. Discussed the following topics: Recent blood sugar results and trends Reducing NPH to avoid lows and then consideration for changing mealtime insulin prn to avoid hyperglycemia CHO types, simple v complex Importance of eliminating lows Insulin action Goals: Call insurance about payment options for pump therapy- met Contact [employer] with your decision- met Try taking mealtime insulin 10 min prior to meal- new Reduce to 3u for HS NPH and 5u AM NPH- new If evening lows continue after 2-3 days consider d/c of HS NPH at this time, but monitor FBG closely- new Follow-up: JUSTIN HAWK follow-up in one week via phone or messaging and 2 weeks via IH portal for 1:1. Monica Canas RDN, CARINE Certified Diabetes Care and Rate And Cost Analyst T: [phone] F: [phone] [email or web address] Thank you for this referral
== END ==
LOC: DIET 08:59
PROVIDERS: PCP Family Medicine; Referring Provider Family Medicine
DX: O24.414 Gestational diabetes mellitus in pregnancy, insulin controlled (principal); Z3A.33 33 weeks gestation of pregnancy; Z71.3 Dietary counseling and surveillance
CPT/HCPCS: G0108

== ENCOUNTER 2024-04-15 09:26 | Outpatient (CLI) | payer OTHER, SELFPAY ==
--- NOTE | 2024-04-15 10:10 | P.TNLD_ITS ---
Visit Information Visit Information Date of evaluation: 04/15/24 Primary OB Provider: Roxann Raphael Comments/Additional reasons for admission: 33yo at 33w1d here for NST for GDMA2. [facility] Medical History (Updated 01/08/24 @ 14:36 by Roxann Raphael MD) History of hysterosalpingogram Asthma (~1992) Infertility Anovulation Gestational diabetes Miscarriage (~12/2019) Chicken pox (~1991) Abnormal Pap smear of cervix (~2007) Endocarditis (~2001) Family History (Updated 10/01/23 @ 10:19 by Huong Lei RN) Father Hypertension Liver failure Alcoholism Mother Diabetes mellitus Squamous cell carcinoma Grandfather Alzheimer's disease Prediabetes Grandfather Hypertension Esophageal cancer Secondhand smoke exposure Grandmother Lung cancer Smoker Family/Other Breast cancer Colon cancer Social History marital status: number of children: 1 household members: spouse, family ([id number]) and children lives independently: Yes caregiver/support person: Yes housing: house pets and animals: Yes (3 dogs) education level: college (some college) occupational status: unemployed current occupational exposures/hazards: No special [place] needs: No travel history: recent ([place] only) seatbelt use: always helmet use: Yes water heater temp set < 120 deg: Yes working smoke detector in home: Yes fire extinguisher in home: Yes carbon monox detector in home: Yes firearms in home: Yes firearms unloaded and locked: Yes do you feel safe at home: Yes Smoking Status: Former smoker Tobacco: How many years used: 5 (off-an-on social smoker ) second hand exposure: No alcohol intake: former (~3 glasses wine/week when not ) substance use type: marijuana (previously) during the past year weight has: other (About same weight as at time of delivery (dtr ~14 months old) d/t thyroid issues) well-balanced diet: daily or most days daily servings fruits/ve or more times/day caffeine: Yes (AM cup coffee, sometimes single cup green tea in afternoon) Type(s) of exercise: walking, bicycling, weight lifting and other (hiking) frequency: 3-4 times per week Evaluation Evaluation Baseline heart rate: 140 Variability: Moderate (11-25) monitor accelerations: Present Monitor Decelerations: Absent Category of Tracing: Reactive Diagnosis, Plan/Disposition Final Diagnosis (1) Gestational diabetes mellitus (GDM): Status: Acute Plan/Disposition Plan: 33yo at 33w1d here for NST for GDMA2. NST reactive. Stable for d/c home. Continue testing. OB Disposition: home
== END 2024-04-15 10:10 | disposition home or self-care (01) ==
LOC: LABOR 09:45 → OB 04-20 06:12
PROVIDERS: PCP Family Medicine; Referring Provider Family Medicine; Visit Provider Family Medicine
DX: O24.414 Gestational diabetes mellitus in pregnancy, insulin controlled (principal); Z3A.33 33 weeks gestation of pregnancy
CPT/HCPCS: 59025; G0378; G0379

== ENCOUNTER 2024-04-22 08:56 | Outpatient (CLI) | payer OTHER, SELFPAY ==
--- NOTE | 2024-04-22 09:22 | P.TNLD_ITS ---
Visit Information Visit Information Date of evaluation: 04/22/24 Primary OB Provider: Roxann Raphael Comments/Additional reasons for admission: 33yo at 34w1d here for NST for GDMA2. [facility] Medical History (Updated 01/08/24 @ 14:36 by Roxann Raphael MD) History of hysterosalpingogram Asthma (~1992) Infertility Anovulation Gestational diabetes Miscarriage (~12/2019) Chicken pox (~1991) Abnormal Pap smear of cervix (~2007) Endocarditis (~2001) Family History (Updated 10/01/23 @ 10:19 by Huong Lei, RITU) Father Hypertension Liver failure Alcoholism Mother Diabetes mellitus Squamous cell carcinoma Grandfather Alzheimer's disease Prediabetes Grandfather Hypertension Esophageal cancer Secondhand smoke exposure Grandmother Lung cancer Smoker Family/Other Breast cancer Colon cancer Social History marital status: number of children: 1 household members: spouse, family ([id number]) and children lives independently: Yes caregiver/support person: Yes housing: house pets and animals: Yes (3 dogs) education level: college (some college) occupational status: unemployed current occupational exposures/hazards: No special [place] needs: No travel history: recent ([place] only) seatbelt use: always helmet use: Yes water heater temp set < 120 deg: Yes working smoke detector in home: Yes fire extinguisher in home: Yes carbon monox detector in home: Yes firearms in home: Yes firearms unloaded and locked: Yes do you feel safe at home: Yes Smoking Status: Former smoker Tobacco: How many years used: 5 (off-an-on social smoker ) second hand exposure: No alcohol intake: former (~3 glasses wine/week when not ) substance use type: marijuana (previously) during the past year weight has: other (About same weight as at time of delivery (dtr ~14 months old) d/t thyroid issues) well-balanced diet: daily or most days daily servings fruits/ve or more times/day caffeine: Yes (AM cup coffee, sometimes single cup green tea in afternoon) Type(s) of exercise: walking, bicycling, weight lifting and other (hiking) frequency: 3-4 times per week Evaluation Evaluation Baseline heart rate: 135 Variability: Moderate (11-25) monitor accelerations: Present Monitor Decelerations: Absent Category of Tracing: Reactive Diagnosis, Plan/Disposition Plan/Disposition Plan: 33yo at 34w1d here for NST for GDMA2. NST reactive. Continue testing. OB Disposition: home
== END 2024-04-22 09:45 | disposition home or self-care (01) ==
LOC: LABOR 09:38 → OB 04-24 15:09
PROVIDERS: PCP Family Medicine; Referring Provider Family Medicine; Visit Provider Family Medicine
DX: O24.414 Gestational diabetes mellitus in pregnancy, insulin controlled (principal); Z3A.34 34 weeks gestation of pregnancy
CPT/HCPCS: 59025; G0378; G0379

== ENCOUNTER → 2024-04-23 09:15 | Outpatient (CLI) | payer OTHER, SELFPAY ==
--- NOTE | 2024-04-23 17:45 | DIAB.GDFU ---
Follow-up Gestational Diabetes Assessment Name: Shaunna Lipscomb Date: 04/23/24 Time: 9-930a Dx: Gestational Diabetes Provider: Ijeoma YADY: 06/02/24 Weeks: 34-35 Shaunna presents for GDM follow-up virtually using IH Portal Anything over 20g CHO needs insulin, even snacks. Aiming to keep snack under 20g or takes additional insulin, 2u. If eating out, will take 4u, which seems to work. Less lows reported. Mid morning may start to go low, feeling hungry at that time, this is often just 2 hours after breakfast. Less overnight or pressure lows since changing sensor. Taking ac insulin 10 min prior. If continued pc breakfast elevations or 138-165mg/dl trend with mid morning low, consideration for reducing morning NPH to 6u and increasing mealtime insulin at breakfast to 4u. She would like to try this tomorrow. Potentially under Y[employer] HOSTLER for CHO during . Diet Recall: 730-8a: sourdough toast, avocado, egg, grande, ham 10-1030a: protein bar 1130-12: leftovers, chicken salad on sourdough x1 or in a low CHO wrap and avocado OR chicken pot pie with puff pastry 30g CHO Sn: nothing OR yogurt with low CHO topping 20-25g CHO 530-6p: chicken pot pie OR whole isiah with burger, veggies Sn: yogurt bowl OR Halloween chocolate with protein shake water, coffee, decaf low CHO marilou latte Last US indicates WNL amniotic fluid and 38th percentile weight. Tomorrow US appt. Anthropometrics: Ht: 61 Wt: 180# 04/15/24 178# 04/01/24 176# 03/18/24 175# 03/04/24 174# 02/11/24 172# 01/08/24 Prepregnancy wt: 180# Physical Activity: Limited. Self-Monitoring Blood Glucose: TIR improved with insulin changes. Improved time in goal and reduced lows. Today TIR: 7% above 140 mg/dl 90% in range 3% below 70mg/dl <1% very low av mg/dl GMI: 5.7% Variance 23.4% Last TIR: 7% above 140 mg/dl 87% in range 5% below 70mg/dl 1% very low av mg/dl GMI: 5.7% Variance 25.1% Diabetes Medications: 8u NPH AM 3u NPH PM 3-4u Aspart TID Pertinent Labs: Screen 178mg/dl 10/2023 Nutrition Rx: Carbohydrates: Meal: 45-g lunch and dinner; 30g breakfast Snack: 15-30g Nutrition Diagnosis: Altered nutrition related lab value r/t GDM dx aeb recent OGTT Inadequate CHO intake r/t hyperglycemia management aeb diet recall <175g CHO and BG logs -in progress Intervention: This participant was very receptive. Provided appropriate educational handouts. Discussed the following topics: Recent blood sugar results and trends Insulin management Aiming for more CHO at meals up to 45g at lunch and dinner and adding 1u more for insulin at meal Strategies for reducing lows Goals: Try taking mealtime insulin 10 min prior to meal- met Reduce to 3u for HS NPH and 5u AM NPH- met If evening lows continue after 2-3 days consider d/c of HS NPH at this time, but monitor FBG closely- d/c Try 40-45g CHO at lunch/dinner with added insulin unit- new Try reduced morning NPH to reduce mid morning low- new Follow-up: JUSTIN HAWK follow-up in two weeks or sooner davey Canas RDN, CARINE Certified Diabetes Care and Slat Twister T: [phone] F: [phone] [email or web address] Thank you for this referral
== END ==
PROVIDERS: PCP Family Medicine; Referring Provider Family Medicine
DX: O24.414 Gestational diabetes mellitus in pregnancy, insulin controlled (principal); Z3A.34 34 weeks gestation of pregnancy; Z71.3 Dietary counseling and surveillance
CPT/HCPCS: 97803

== ENCOUNTER → 2024-04-24 08:29 | Outpatient (CLI) | payer OTHER, SELFPAY ==
--- NOTE | 2024-04-24 08:30 | DI.US.S_ITS ---
PROCEDURE: US OB LIMITED INDICATIONS: growth OUTSIDE/PRIOR DATING DATA: Last menstrual period (LMP): 08/23/23. LMP-based estimated date of delivery (YADY): 05/29/24. First dating scan (date and location): 11/22/23. Estimated date of delivery (YADY) from first dating scan: 05/31/24. The calculations are made using an YADY of 05/31/24. TECHNIQUE: Real-time scanning was performed of the fetus, with image documentation and biometric measurements. Endovaginal scanning: Not needed COMPARISON: [facility], OB LIMITED, 03/27/2024, 7:16. [facility], OB LIMITED, 03/03/2024, 7:12. FINDINGS: General: A single living intrauterine gestation is present. Presentation: Vertex. Placenta: Placental position is posterior , without previa. Amniotic fluid index: 16.0 cm, normal range is 5-24 cm. Single deepest vertical pocket is 4.8 cm. heart rate: 163 beats per minute. Maternal cervical canal: 3.0 cm long. Normal lower limit is 2.5 cm. biometrics: Biparietal diameter: 9.0 cm, 36 weeks 2 days Head circumference: 31.9 cm, 36 weeks 0 days Abdominal circumference: 30.1 cm, 34 weeks 1 day Femur length: 6.6 cm, 33 weeks 6 days Clinically estimated gestational age: 34 weeks 3 days Composite gestational age from present scan: 35 weeks 1 day Estimated weight and percentile: 2425 g, 44th percentile Other: Not applicable. IMPRESSION: Appropriate growth, no anomaly seen. We strive to produce accurate, complete, and clear reports of imaging services. To assist us in improving patient care, this report was composed using standard report templates and voice recognition software. Therefore, it may contain abnormal punctuation, insertions and/or omissions. Occasional wrong-word or sound-alike substitutions may occur. Though we review the report and make efforts to correct it, we do recommend that the report be read carefully in proper context to recognize any text inaccuracies. Dictated by: Ky Faria M.D. on 04/24/2024 at 14:40 Approved by: Ky Faria M.D. on 04/24/2024 at 14:46
== END ==
PROVIDERS: PCP Family Medicine; Referring Provider Family Medicine; Visit Provider Family Medicine
DX: O24.419 Gestational diabetes mellitus in pregnancy, unspecified control (principal); Z3A.35 35 weeks gestation of pregnancy
CPT/HCPCS: 76815

== ENCOUNTER 2024-04-25 08:50 | Outpatient (CLI) | payer OTHER, SELFPAY | END 2024-04-25 09:23 | disposition home or self-care (01) | LOC: OB 04-27 11:12 | PROVIDERS: PCP Family Medicine; Referring Provider Family Medicine; Visit Provider Family Medicine | DX: O24.414 Gestational diabetes mellitus in pregnancy, insulin controlled (principal); O99.413 Diseases of the circulatory system complicating pregnancy, third trimester; I99.9 Unspecified disorder of circulatory system; O99.283 Endocrine, nutritional and metabolic diseases complicating pregnancy, third trimester; E07.9 Disorder of thyroid, unspecified; Z3A.34 34 weeks gestation of pregnancy | CPT/HCPCS: 59025; G0378; G0379 ==

== ENCOUNTER 2024-04-29 09:15 | Outpatient (CLI) | payer OTHER, SELFPAY ==
--- NOTE | 2024-04-29 09:43 | PM.OBTRLD ---
Visit Information Visit Information Date of evaluation: 04/29/24 Primary OB Provider: Roxann Raphael On-call OB Provider: Reema Robledo Reason for Evaluation: Yes non-stress test Comments/Additional reasons for admission: A2 GDM Vital Signs Vital Signs: maternal vital signs reviewed in OBIX and wnl [facility] Medical History (Updated 01/08/24 @ 14:36 by Roxann Raphael MD) History of hysterosalpingogram Asthma (~1992) Infertility Anovulation Gestational diabetes Miscarriage (~12/2019) Chicken pox (~1991) Abnormal Pap smear of cervix (~2007) Endocarditis (~2001) Family History (Updated 10/01/23 @ 10:19 by Huong Lei RN) Father Hypertension Liver failure Alcoholism Mother Diabetes mellitus Squamous cell carcinoma Grandfather Alzheimer's disease Prediabetes Grandfather Hypertension Esophageal cancer Secondhand smoke exposure Grandmother Lung cancer Smoker Family/Other Breast cancer Colon cancer Social History marital status: number of children: 1 household members: spouse, family ([id number]) and children lives independently: Yes caregiver/support person: Yes housing: house pets and animals: Yes (3 dogs) education level: college (some college) occupational status: unemployed current occupational exposures/hazards: No special [place] needs: No travel history: recent ([place] only) seatbelt use: always helmet use: Yes water heater temp set < 120 deg: Yes working smoke detector in home: Yes fire extinguisher in home: Yes carbon monox detector in home: Yes firearms in home: Yes firearms unloaded and locked: Yes do you feel safe at home: Yes Smoking Status: Former smoker Tobacco: How many years used: 5 (off-an-on social smoker ) second hand exposure: No alcohol intake: former (~3 glasses wine/week when not ) substance use type: marijuana (previously) during the past year weight has: other (About same weight as at time of delivery (dtr ~14 months old) d/t thyroid issues) well-balanced diet: daily or most days daily servings fruits/ve or more times/day caffeine: Yes (AM cup coffee, sometimes single cup green tea in afternoon) Type(s) of exercise: walking, bicycling, weight lifting and other (hiking) frequency: 3-4 times per week Review of Systems Review of Systems ROS: Yes All systems reviewed with the patient and are negative except as otherwise documented Evaluation Evaluation Baseline heart rate: 130 Variability: Moderate (11-25) monitor accelerations: Present Monitor Decelerations: Absent Category of Tracing: Reactive Status: Category l Diagnosis, Plan/Disposition Plan/Disposition Plan: Routine precautions, keep next PNC as scheduled 05/04 (Ijeoma) OB Disposition: home
== END 2024-04-29 09:46 | disposition home or self-care (01) ==
LOC: OB 04-30 10:49
PROVIDERS: PCP Family Medicine; Referring Provider Family Medicine; Visit Provider Family Medicine
DX: O24.414 Gestational diabetes mellitus in pregnancy, insulin controlled (principal); O99.413 Diseases of the circulatory system complicating pregnancy, third trimester; I99.9 Unspecified disorder of circulatory system; O99.283 Endocrine, nutritional and metabolic diseases complicating pregnancy, third trimester; E07.9 Disorder of thyroid, unspecified; Z3A.35 35 weeks gestation of pregnancy
CPT/HCPCS: 59025; G0378; G0379

== ENCOUNTER → 2024-05-01 12:27 | Outpatient (CLI) | payer OTHER, SELFPAY ==
[2024-05-02 13:13] LABS: Strep Grp B PCR NEG for Grp B Strep
== END ==
PROVIDERS: PCP Family Medicine; Visit Provider Family Medicine
DX: Z34.80 Encounter for supervision of other normal pregnancy, unspecified trimester (principal)
CPT/HCPCS: 87653

== ENCOUNTER 2024-05-02 09:02 | Observation (INO) | payer OTHER, SELFPAY | END 2024-05-02 09:37 | disposition home or self-care (01) | LOC: LABOR 09:03 | PROVIDERS: Admitting Provider Obstetrics & Gynecology; PCP Family Medicine; Referring Provider Obstetrics & Gynecology; Visit Provider Obstetrics & Gynecology | DX: O36.8130 Decreased fetal movements, third trimester, not applicable or unspecified (principal); O24.414 Gestational diabetes mellitus in pregnancy, insulin controlled; O99.413 Diseases of the circulatory system complicating pregnancy, third trimester; I99.9 Unspecified disorder of circulatory system; O99.283 Endocrine, nutritional and metabolic diseases complicating pregnancy, third trimester; E07.9 Disorder of thyroid, unspecified; Z3A.36 36 weeks gestation of pregnancy | CPT/HCPCS: 59025; G0378; G0379 ==

== ENCOUNTER → 2024-05-05 08:31 | Outpatient (CLI) | payer OTHER, SELFPAY ==
--- NOTE | 2024-05-05 08:32 | DIAB.GDFU ---
Follow-up Gestational Diabetes Assessment Name: Shaunna Lipscomb Date: 05/05/24 Time: 830-9a Dx: Gestational Diabetes Provider: Ijeoma YADY: 06/02/24 Weeks: 36 Shaunna presents for GDM follow-up virtually using [facility] Portal IOL scheduled for 05/25. Can reduced morning NPh to 3-4 u and increase meal time by 1-2u (5-6u at breakfast for hyperglycemia). Increased CHO at lunch and dinner to 40-45g CHO with increased insulin. 4u at lunch and dinner and 5u at breakfast lately. Improved ELECTRONIC COURT RECORDER for CHO intake for . Last US indicates WNL amniotic fluid and 38th percentile weight. Tomorrow US appt. Anthropometrics: Ht: 61 Wt: 180# 04/15/24 178# 04/01/24 176# 03/18/24 175# 03/04/24 174# 02/11/24 172# 01/08/24 Prepregnancy wt: 180# Physical Activity: Limited. Self-Monitoring Blood Glucose: TIR with slight increase in elevations by 2%. Overall, pretty good management of BG, though noteable elevations after breakfast in the 160s mg/dl per CGM. Might benefit from slight adjustment of insulin. Today TIR: 9% above 140 mg/dl 89% in range 2% below 70mg/dl <1% very low av mg/dl GMI: 5.8% Variance 23% Last TIR: 7% above 140 mg/dl 90% in range 3% below 70mg/dl <1% very low av mg/dl GMI: 5.7% Variance 23.4% Diabetes Medications: 5u NPH AM 3u NPH PM 3-4u Aspart TID Pertinent Labs: Screen 178mg/dl 10/2023 Nutrition Rx: Carbohydrates: Meal: 45-g lunch and dinner; 30g breakfast Snack: 15-30g Nutrition Diagnosis: Altered nutrition related lab value r/t GDM dx aeb recent elevated screen and h/o GDM Inadequate CHO intake r/t hyperglycemia management aeb diet recall <175g CHO and BG logs -improved Intervention: This participant was very receptive. Provided appropriate educational handouts. Discussed the following topics: Recent blood sugar results and trends Insulin management Review of macronutrient recommendations during and Benefits, resources, and nutrition for recommendations for nutrition and physical activity recommendations for T2DM risk reduction OTC options for CGM prn Known risk for GDM with subsequent pregnancies Checking blood sugars twice per week (goal: fasting <100 mg/dL and 2 hour pc <140 mg/dL) until 6 week check-up HgA1c q 1-3 years. Goals: Try 40-45g CHO at lunch/dinner with added insulin unit- met Try reduced morning NPH to reduce mid morning low- met Consider further reduction in NPH morning dose and increased mealtime insulin- new Continue to monitor BG for at least 6 weeks Aim for E[address]RONIC COURT RECORDER for CHO during and Follow-up: JUSTIN HAWK follow-up prn. Monica Canas RDN, CARINE Certified Diabetes Care and Regional Operations Director T: [phone] F: [phone] [email or web address] Thank you for this referral
== END ==
PROVIDERS: PCP Family Medicine; Referring Provider Family Medicine
DX: O24.414 Gestational diabetes mellitus in pregnancy, insulin controlled (principal); Z3A.36 36 weeks gestation of pregnancy; Z71.3 Dietary counseling and surveillance
CPT/HCPCS: 97803

== ENCOUNTER 2024-05-06 15:26 | Observation (INO) | payer OTHER, SELFPAY ==
--- NOTE | 2024-05-06 15:57 | PM.OBTRLD ---
Visit Information Visit Information Date of evaluation: 05/06/24 Primary OB Provider: Roxann Raphael Comments/Additional reasons for admission: 33yo at 36w1d here for NST for GDMA2. No vaginal bleeding, LOF, contractions. Feeling baby move regularly. [facility] Medical History (Updated 01/08/24 @ 14:36 by Roxann Raphael MD) History of hysterosalpingogram Asthma (~1992) Infertility Anovulation Gestational diabetes Miscarriage (~12/2019) Chicken pox (~1991) Abnormal Pap smear of cervix (~2007) Endocarditis (~2001) Family History (Updated 10/01/23 @ 10:19 by Huong Lei RN) Father Hypertension Liver failure Alcoholism Mother Diabetes mellitus Squamous cell carcinoma Grandfather Alzheimer's disease Prediabetes Grandfather Hypertension Esophageal cancer Secondhand smoke exposure Grandmother Lung cancer Smoker Family/Other Breast cancer Colon cancer Social History marital status: number of children: 1 household members: spouse, family ([id number]) and children lives independently: Yes caregiver/support person: Yes housing: house pets and animals: Yes (3 dogs) education level: college (some college) occupational status: unemployed current occupational exposures/hazards: No special [place] needs: No travel history: recent ([place] only) seatbelt use: always helmet use: Yes water heater temp set < 120 deg: Yes working smoke detector in home: Yes fire extinguisher in home: Yes carbon monox detector in home: Yes firearms in home: Yes firearms unloaded and locked: Yes do you feel safe at home: Yes Smoking Status: Former smoker Tobacco: How many years used: 5 (off-an-on social smoker ) second hand exposure: No alcohol intake: former (~3 glasses wine/week when not ) substance use type: marijuana (previously) during the past year weight has: other (About same weight as at time of delivery (dtr ~14 months old) d/t thyroid issues) well-balanced diet: daily or most days daily servings fruits/ve or more times/day caffeine: Yes (AM cup coffee, sometimes single cup green tea in afternoon) Type(s) of exercise: walking, bicycling, weight lifting and other (hiking) frequency: 3-4 times per week Evaluation Evaluation Baseline heart rate: 120 Variability: Moderate (11-25) monitor accelerations: Present Monitor Decelerations: Absent Category of Tracing: Reactive Diagnosis, Plan/Disposition Plan/Disposition Plan: 33yo at 36w1d here for NST for GDMA2. NST reactive. Continue testing. OB Disposition: home
== END 2024-05-06 15:58 | disposition home or self-care (01) ==
LOC: LABOR 15:27
PROVIDERS: Admitting Provider Family Medicine; PCP Family Medicine; Referring Provider Family Medicine; Visit Provider Family Medicine
DX: O24.414 Gestational diabetes mellitus in pregnancy, insulin controlled (principal); Z3A.36 36 weeks gestation of pregnancy
CPT/HCPCS: 59025; G0378; G0379

== ENCOUNTER 2024-05-09 08:57 | Outpatient (CLI) | payer OTHER, SELFPAY | END 2024-05-09 09:30 | disposition home or self-care (01) | LOC: OB 05-11 11:44 | PROVIDERS: PCP Family Medicine; Referring Provider Family Medicine; Visit Provider Family Medicine | DX: O24.414 Gestational diabetes mellitus in pregnancy, insulin controlled (principal); O99.413 Diseases of the circulatory system complicating pregnancy, third trimester; I99.9 Unspecified disorder of circulatory system; O99.283 Endocrine, nutritional and metabolic diseases complicating pregnancy, third trimester; E07.9 Disorder of thyroid, unspecified; Z3A.36 36 weeks gestation of pregnancy | CPT/HCPCS: 59025; G0378; G0379 ==

== ENCOUNTER 2024-05-13 09:21 | Outpatient (CLI) | payer OTHER, SELFPAY ==
--- NOTE | 2024-05-13 09:56 | PM.OBTRLD ---
Visit Information Visit Information Date of evaluation: 05/13/24 Primary OB Provider: Roxann Raphael Comments/Additional reasons for admission: at 37w3d here for NST for GDMA2. [facility] Medical History (Updated 01/08/24 @ 14:36 by Roxann Raphael MD) History of hysterosalpingogram Asthma (~1992) Infertility Anovulation Gestational diabetes Miscarriage (~12/2019) Chicken pox (~1991) Abnormal Pap smear of cervix (~2007) Endocarditis (~2001) Family History (Updated 10/01/23 @ 10:19 by Huong Lei RN) Father Hypertension Liver failure Alcoholism Mother Diabetes mellitus Squamous cell carcinoma Grandfather Alzheimer's disease Prediabetes Grandfather Hypertension Esophageal cancer Secondhand smoke exposure Grandmother Lung cancer Smoker Family/Other Breast cancer Colon cancer Social History marital status: number of children: 1 household members: spouse, family ([id number]) and children lives independently: Yes caregiver/support person: Yes housing: house pets and animals: Yes (3 dogs) education level: college (some college) occupational status: unemployed current occupational exposures/hazards: No special [place] needs: No travel history: recent ([place] only) seatbelt use: always helmet use: Yes water heater temp set < 120 deg: Yes working smoke detector in home: Yes fire extinguisher in home: Yes carbon monox detector in home: Yes firearms in home: Yes firearms unloaded and locked: Yes do you feel safe at home: Yes Smoking Status: Former smoker Tobacco: How many years used: 5 (off-an-on social smoker ) second hand exposure: No alcohol intake: former (~3 glasses wine/week when not ) substance use type: marijuana (previously) during the past year weight has: other (About same weight as at time of delivery (dtr ~14 months old) d/t thyroid issues) well-balanced diet: daily or most days daily servings fruits/ve or more times/day caffeine: Yes (AM cup coffee, sometimes single cup green tea in afternoon) Type(s) of exercise: walking, bicycling, weight lifting and other (hiking) frequency: 3-4 times per week Evaluation Evaluation Baseline heart rate: 130 Variability: Moderate (11-25) monitor accelerations: Present Monitor Decelerations: Absent Category of Tracing: Reactive Diagnosis, Plan/Disposition Final Diagnosis (1) Gestational diabetes mellitus (GDM): Status: Acute Plan/Disposition Plan: at 37w3d here for NST for GDMA2. NST reactive. Continue testing. IOL scheduled for 39wks. OB Disposition: home
== END 2024-05-13 10:00 | disposition home or self-care (01) ==
LOC: OB 05-17 09:27
PROVIDERS: PCP Family Medicine; Referring Provider Family Medicine; Visit Provider Family Medicine
DX: O24.414 Gestational diabetes mellitus in pregnancy, insulin controlled (principal); Z3A.37 37 weeks gestation of pregnancy
CPT/HCPCS: 59025; G0378; G0379

== ENCOUNTER 2024-05-16 09:01 | Observation (INO) | payer OTHER, SELFPAY | END 2024-05-16 09:35 | disposition home or self-care (01) | LOC: LABOR 09:03 | PROVIDERS: Admitting Provider Family Medicine; PCP Family Medicine; Referring Provider Family Medicine; Visit Provider Family Medicine | DX: O24.414 Gestational diabetes mellitus in pregnancy, insulin controlled (principal); O99.413 Diseases of the circulatory system complicating pregnancy, third trimester; I99.9 Unspecified disorder of circulatory system; O99.283 Endocrine, nutritional and metabolic diseases complicating pregnancy, third trimester; E07.9 Disorder of thyroid, unspecified; Z3A.37 37 weeks gestation of pregnancy | CPT/HCPCS: 59025; G0378; G0379 ==

== ENCOUNTER 2024-05-20 09:31 | Outpatient (CLI) | payer OTHER, SELFPAY | END 2024-05-20 10:02 | disposition home or self-care (01) | LOC: LABOR 09:48 → OB 05-25 08:44 | PROVIDERS: PCP Family Medicine; Referring Provider Family Medicine; Visit Provider Family Medicine | DX: O24.414 Gestational diabetes mellitus in pregnancy, insulin controlled (principal); O99.413 Diseases of the circulatory system complicating pregnancy, third trimester; I99.9 Unspecified disorder of circulatory system; O99.283 Endocrine, nutritional and metabolic diseases complicating pregnancy, third trimester; E07.9 Disorder of thyroid, unspecified; Z3A.38 38 weeks gestation of pregnancy | CPT/HCPCS: 59025; G0378; G0379 ==

== ENCOUNTER 2024-05-25 17:39 | Inpatient (IN) | payer OTHER, SELFPAY ==
[2024-05-25 18:26] VITALS: BP 120/76
[2024-05-25 19:41] LABS: Add Manual Diff / Slide Review NO; Basophils Absolute Auto 100 /uL (0-100); Basophils Percent Auto 0.5 % (0-2); Eosinophils Absolute Auto 100 /uL (0-450); Eosinophils Percent Auto 0.7 % (2-4); Hemoglobin 11.2 g/dL (12.0-16.0); Lymphocytes Absolute Auto 2200 /uL (1100-4500); Lymphocytes Percent Auto 17.9 % (25-40); Mean Corpuscular HGB Conc 33.9 % (30-36); Mean Corpuscular Hemoglobin 29.5 PG (26-34); Mean Corpuscular Volume 87.2 fL (80-100); Monocytes Absolute Auto 1000 /uL (0-900); Monocytes Percent Auto 8.2 % (3-14); Neutrophils Absolute Auto 9000 /uL (1500-7000); Neutrophils Percent Auto 72.7 % (50-75); Platelet Count 205 X10^3/uL (150-400); Red Blood Cell Count 3.78 X10^6/uL (4.0-5.2); Red Cell Distribution Width 14.7 % (11.6-14.8); White Blood Cell Count 12.4 X10^3/uL (4.5-11.0)
[2024-05-25] MEDS: miSOPROStoL 25 MCG TABLET 50 MCG PO (20:42)
[2024-05-26] MEDS: miSOPROStoL 25 MCG TABLET 50 MCG PO ×2 (00:38→04:48)
[2024-05-26] MEDS: LEVOTHYROXINE 100 MCG TABLET PO (07:34)
--- NOTE | 2024-05-26 08:22 | PM.OBHP.IH.1 ---
OB HPI Date/Time Date of admission: 05/25/24 Date Patient Seen: 05/26/24 Time Patient Seen: 08:00 History of Present Condition Chief complaint: INDUCTION YADY Calculator Estimated Delivery Date Method Current WG Current Estimate 06/02/24 Manual 39w 0d Final YADY - DONNA Other Estimates 05/29/24 LMP (Certain) 39w 4d 06/02/24 Ultrasound #1 39w 0d Estimated Gestational Age (weeks): 39w0d : 3 Para: 1 Narrative: 33yo at 39w0d here for IOL for GDMA2. The pt reports no vaginal bleeding, LOF. She is feeling mild cramping, and her baby moving regularly. Her was complicated by GDMA2 (diagnosed early at 15wks) on NPH and aspart insulin for excellent control, hypothyroidism on Levothyroxine. care: good care, initiated at week # (7) and pounds weight gain (4) Dating criteria OB: LMP confirmed by 1st trimester US Ultrasounds: normal 1st trimester US and normal mid trimester US Obstetrical complications: gestational diabetes Medical complications OB: other (hypothyroidism) Indications Indication for induction OB: gestational diabetes Preadmission Labs Last OB Lab Results: Blood Type B Negative 05/25/24 19:30 Antibody Screen Positive 05/25/24 19:30 Hct 33.0 % (36-46) L 05/25/24 19:30 Hgb 11.2 g/dL (12.0-16.0) L 05/25/24 19:30 Hep Bs Antigen Negative s/c (NEGATIVE) 10/16/23 12:39 Hepatitis C Antibody Negative s/c (NEGATIVE) 10/16/23 12:39 Rubella Antibody 96.1 IU/mL (>15) 10/16/23 12:39 VZV IgG Antibody 938 index (Immune >165) 10/16/23 12:39 Glucose 1 Hr 50 gm 178 mg/dL (76-139) H 10/16/23 13:50 Hemoglobin A1c 5.5 % (4.0-6.0) 10/16/23 12:39 Group B Strep (PCR) Neg for grp b strep 05/01/24 10:30 -: Urine: negative Genetic Screens: Quad screen: Normal External Labs -: Urine: negative Prior (ies) Past Pregnancies Del. Date GA/Weeks Labor Lgth Wt Sex Route Outcome Anesthesia Place Delv Breastfeed Preg Comp Name 12/30/19 6 spontaneous 07/18/22 39.1 6 7 lb 6 oz Female vaginal live - full term epidural IH Still going as of 10/01/23 gestational diabetes other [place] Delivery Date: 07/18/22 Last Updated by: Huong Lei RN [facility] bleeding 1st trimester Hx # Term Pregnancies: 1 Hx # Pregnancies: 0 Number of Living Children: 1 Multiple births: 0 Spontaneous abortions: 1 Ectopic pregnancies: 0 Elective abortions: 0 Evaluation Evaluation Baseline heart rate: 125 Variability: Moderate (11-25) monitor accelerations: Present Monitor Decelerations: Absent Contraction Frequency (minutes): 2 Uterine Contraction Intensity: Mild Status: Category l Dilation (cm): 4 Effacement (%): 80 Dilation: 3-4 cm Effacement: >/=80% station: -1 Position of cervix: anterior Consistency: soft Garrett score: 11 PFSH Medical History (Updated 01/08/24 @ 14:36 by Roxann Raphael MD) History of hysterosalpingogram Asthma (~1992) Infertility Anovulation Gestational diabetes Miscarriage (~12/2019) Chicken pox (~1991) Abnormal Pap smear of cervix (~2007) Endocarditis (~2001) Family History (Updated 10/01/23 @ 10:19 by Huong Lei RN) Father Hypertension Liver failure Alcoholism Mother Diabetes mellitus Squamous cell carcinoma Grandfather Alzheimer's disease Prediabetes Grandfather Hypertension Esophageal cancer Secondhand smoke exposure Grandmother Lung cancer Smoker Family/Other Breast cancer Colon cancer Social History marital status: number of children: 1 household members: spouse, family ([id number]) and children lives independently: Yes caregiver/support person: Yes housing: house pets and animals: Yes (3 dogs) education level: college (some college) occupational status: unemployed current occupational exposures/hazards: No special [place] needs: No travel history: recent ([place] only) seatbelt use: always helmet use: Yes water heater temp set < 120 deg: Yes working smoke detector in home: Yes fire extinguisher in home: Yes carbon monox detector in home: Yes firearms in home: Yes firearms unloaded and locked: Yes do you feel safe at home: Yes Smoking Status: Never smoker Tobacco: How many years used: 5 (off-an-on social smoker ) second hand exposure: No alcohol intake: former (~3 glasses wine/week when not ) substance use type: marijuana (previously) during the past year weight has: other (About same weight as at time of delivery (dtr ~14 months old) d/t thyroid issues) well-balanced diet: daily or most days daily servings fruits/ve or more times/day caffeine: Yes (AM cup coffee, sometimes single cup green tea in afternoon) Type(s) of exercise: walking, bicycling, weight lifting and other (hiking) frequency: 3-4 times per week Meds Home Medications and Allergies Home Medications Medication Instructions Recorded Confirmed Type PNV cmb#95-ferrous fumarate-FA 10/10/21 05/20/24 History [ Multivitamins] sharps container #1 ea 05/09/22 05/25/24 Rx CGM Freestyle ivis 3 sensors #6 device 12/03/23 05/25/24 Rx insulin NPH isoph U-100 human 100 See Rx Instructions SUBCUT BID #15 01/08/24 05/25/24 Rx unit/mL (3 mL) subcutaneous pen mL (Humulin N NPH U-100 Insulin KwikPen) Continuous Glucose Monitor #3 multiple units 02/20/24 05/25/24 Rx levothyroxine 100 mcg tablet 100 mcg PO DAILY #30 tabs 04/17/24 05/25/24 Rx insulin aspart U-100 100 unit/mL See Rx Instructions .Route .COMPLEX 05/02/24 05/25/24 History (3 mL) subcutaneous pen pen needle, diabetic 33 gauge x #100 ea 05/11/24 05/25/24 Rx 1/4 (Comfort EZ Pen Home) Allergies Allergy/AdvReac Type Severity Reaction Status Date / Time No Known Drug Allergies Allergy Verified 05/20/24 09:02 OB Exam Resp Effort & Inspection: normal respiratory effort Auscultation: clear to auscultation bilaterally Cardio Rate: regular rate Rhythm: regular rhythm Heart Sounds: S1 normal, S2 normal and no murmurs GI Inspection: non-distended Palpation: Yes soft and No tender Presentation: vertex Objective Labs 05/25/24 19:30 Labs: Laboratory Results - last 24 hr 05/25/24 19:30 WBC 12.4 H RBC 3.78 L Hgb 11.2 L Hct 33.0 L MCV 87.2 MCH 29.5 MCHC 33.9 RDW 14.7 Plt Count 205 Neut % (Auto) 72.7 Lymph % (Auto) 17.9 L [place] % (Auto) 8.2 Eos % (Auto) 0.7 L Baso % (Auto) 0.5 Neut # (Auto) 9000 H Lymph # (Auto) 2200 [place] # (Auto) 1000 H Eos # (Auto) 100 Baso # (Auto) 100 Blood Type B Negative Antibody Screen Positive Antibody Identification Anti-D Assessment and Plan Assessment and Plan Assessment and Plan narrative: 33yo at 39w0d here for IOL for GDMA2. GBS negative, Rh negative. Received 3 doses of cytotec overnight, now with frequent contractions on monitoring not really felt by the pt. After discussion of AROM vs pitocin, pt would like AROM. Performed with clear fluid present. - Expectant management, anticipate - If without painful contractions in the next 2hrs, will initiate pitocin - FHT reassuring - Epidural for pain control when desired - GBS negative, no prophylaxis indicated - Blood sugar management as per protocol Time-Based Coding :: [TOTAL MINUTES] spent with patient and on the chart (including review of chart, obtaining history, exam, reviewing outside data, placing orders, documenting exam and treatment plan, and counseling patient) on [DATE].
[2024-05-26] MEDS: SODIUM CHLORIDE 0.45% 1,000 ML 125 ML IV (08:47)
--- NOTE | 2024-05-26 09:25 | P.PCN_ITS ---
Regional Block Pre-procedure Procedure: Continuous Lumbar Epidural for L&D Attending OB provider: Roxann Raphael PMH/ROS narrative: 33yo at 39w0d here for IOL for GDMA2. PMH hypothyroid. ASA Class: II Labs: Hct 33.0 % (36-46) L 05/25/24 19:30 Plt Count 205 X10^3/uL (150-400) 05/25/24 19:30 Medications: Current Medications Generic Name Dose Route Start Last Admin Trade Name Freq PRN Reason Stop Dose Admin Calcium Carbonate 1,000 mg 05/25/24 18:26 Calcium Carbonate 500 Mg Tab PO Q2HR PRN Dyspepsia Carboprost Tromethamine 250 mcg 05/25/24 18:26 Carboprost 250 Mcg/Ml Ampul IM Q90M PRN Bleeding Fentanyl 50 mcg 05/25/24 18:26 Fentanyl 100 Mcg/2 Ml Inj IV Q1H PRN Pain, Moderate (4-6) Oxytocin/Lactated Ringer's 30 unit in 500 mls @ 2 mls/hr 05/25/24 18:30 Oxytocin Premix IV TITRATE SEJAL Protocol 2 MILLIUNIT/MIN Oxytocin/Lactated Ringer's 30 unit in 500 mls @ 200 mls/hr 05/25/24 18:26 Oxytocin Premix IV CONT PRN Bleeding Protocol Tranexamic Acid 1,000 mg/ 100 mls @ 600 mls/hr 05/25/24 18:26 Sodium Chloride IV NOW PRN Bleeding Sodium Chloride 1,000 mls @ 125 mls/hr 05/26/24 08:47 05/26/24 08:47 Normal Saline 0.45% IV 05/26/24 16:46 125 mls/hr NOW ONE Administration Insulin Human Lispro 0 unit 05/26/24 11:45 Insulin Lispro 100 Unit/Ml 3ml Vial SUBCUT ACHS [facility] Protocol Levothyroxine Sodium 100 mcg 05/26/24 06:00 05/26/24 07:34 Levothyroxine 100 Mcg Tablet PO 100 mcg DAILY@0600 SEJAL Administration Lidocaine HCl 20 ml 05/25/24 18:26 Lidocaine 1% 20 Ml INJ INTRA-OP PRN Post Delivery Methylergonovine Maleate 0.2 mg 05/25/24 18:26 Methylergonovine 0.2 Mg Tablet PO Q6HR PRN Heavy Bleeding Methylergonovine Maleate 0.2 mg 05/25/24 18:26 Methylergonovine 0.2 Mg/Ml Vial IM NOW PRN Bleeding Mineral Oil 30 ml 05/25/24 18:26 Mineral Oil 30 Ml Udc TOP PRN PRN Version Misoprostol 50 mcg 05/25/24 18:26 05/26/24 04:48 Misoprostol 25 Mcg Tablet PO 50 mcg Q4H PRN Administration cervical ripening Misoprostol 400 mcg 05/25/24 18:26 Misoprostol 200 Mcg Tablet SL NOW PRN Bleeding Misoprostol 800 mcg 05/25/24 18:26 Misoprostol 200 Mcg Tablet ID NOW PRN Bleeding Naloxone HCl 0.2 mg 05/25/24 18: Naloxone 0.4 Mg/Ml Vial IV Q2MIN PRN Opiate Reversal Ondansetron HCl 4 mg 05/25/24 18: Ondansetron 4 Mg/2 Ml Inj IV Q4HR PRN Nausea And Vomiting Oxytocin 10 unit 05/25/24 18: Oxytocin 10 Unit/Ml Vial IM NOW PRN Bleeding Allergies: Allergies Allergy/AdvReac Type Severity Reaction Status Date / Time No Known Drug Allergies Allergy Verified 05/20/24 09:02 Procedure Insertion date: 05/26/24 Insertion time: 10:03 Prep/Local: betadine x3 and 1% lidocaine Interspace: L34 Patient position: sitting Needle: 18 gauge allyDVM (CSE: 27g Pencan through Hustead, clear CSF, 1mL 0.25% bupiv MPF) Loss of resistance with: saline SALINA at (cm): 6 Catheter placed at SKIN (cm): 12 Catheter in SPACE (cm): 6 Insertion: No CSF, No Blood, No Paresthesia with insertion, No Paresthesia with injection and No Test dose reaction Initial Medications TEST DOSE time: 10:05 TEST DOSE: 1.5% lidocaine with epinephrine 1:200k (mL): 3 BOLUS DOSE time: 10:15 BOLUS DOSE (mL): 5 BOLUS DOSE med: 0.25% bupivacaine Infusion INFUSION: 0.125% bupivacaine and with fentanyl 2 mcg/mL Initial rate (mL/hr): 10 Post-procedure Anesthesia date START: 05/26/24 Anesthesia time START: 09:55 Anesthesia date END: 05/26/24 Anesthesia time END: 14:22 Post-procedure Anesthesia Assessment: Yes CV function: HR/BP stable, Yes Resp function: RR/sat/airway adequate, Yes Post-op hydration adequate, Yes Pain control adequate, Yes Nausea & vomiting absent, Yes Temperature > 36 C, Yes Mental status appropriate and No Anesthesia complications
[2024-05-26] MEDS: OXYTOCIN PREMIX 30 UNIT/500 ML PLAST..BAG 200 UNIT IV (14:15)
--- NOTE | 2024-05-26 14:34 | P.PCNOB_ITS ---
Events: Gestational Diabetes Labor & Delivery Delivery date: 05/26/24 Cervical ripening method: per misoprostal protocol Induction method: AROM Delivery monitor: external FHT and external uterine Route of delivery: Episiotomy description: None L&D Laceration Description: Perineal - 2nd Degree Quantitative Blood Loss: 250 Anesthesia Type: Epidural Complications: None Narrative: PROCEDURE: at 39w0d presented for IOL for GDMA2 and was admitted to Labor and Delivery. She received 3 doses of cytotec. AROM occured at 8:04 with clear fluid. The patient progressed through the 1st stage over 6 hours. Pain was controlled with an epidural. The patient progressed through the 2nd stage over 26min and delivered a viable male infant with APGARs 9/9 at 14:12 via without complications. Nuchal cord x1 was reduced after delivery. The cord was cut and clamped after it stopped pulsating. The placenta delivered with gentle cord traction, and appeared complete. The perineum and vagina were inspected with 2nd degree perineal laceration repaired with 2-O Vicryl. Needle and sponge counts were correct.? The vagina was inspected and no items were left in situ. Shaunna was doing well with Ky (Trae), her and her , Ky, at bedside. PREPROCEDURE DIAGNOSIS: Intrauterine at 39w0d GDMA2 Hypothyroidism GBS negative RH negative POSTPROCEDURE DIAGNOSIS: Intrauterine at 39w0d, delivered Same as preprocedure [place] Baby 1: Infant gender: Male Presentation: vertex Position: Left Occiput Anterior Placenta delivery description: Spontaneous Cord Vessel Description: 3 Vessels and Nuchal Cord score (1 min): 9 score (5 min): 9 weight: 7 lb 8.919 oz Plan for aftercare: Routine care
[2024-05-26] MEDS: ACETAMINOPHEN 325 MG TABLET 650 MG PO (16:45)
[2024-05-26] MEDS: IBUPROFEN 600 MG TABLET PO (16:46)
[2024-05-26] MEDS: WITCH HAZEL/GLYCERIN PADS 1 EACH TOP (16:47)
[2024-05-26] MEDS: DERMOPLAST SPRAY 20% 60 ML 1 SPRAY TOP (16:47)
[2024-05-27] MEDS: IBUPROFEN 600 MG TABLET PO ×3 (00:29→14:33)
[2024-05-27] MEDS: ACETAMINOPHEN 325 MG TABLET 650 MG PO ×3 (00:29→14:33)
[2024-05-27] MEDS: LEVOTHYROXINE 100 MCG TABLET PO (06:30)
--- NOTE | 2024-05-27 08:18 | P.DS_ITS ---
Discharge Providers Provider Date of admission: 05/25/24 17:39 Discharge Date: 05/27/24 Primary care physician: Roxann Raphael MD Consults: 05/27/24 14:37 Consult to Rollout Manager Routine Comment: Discharge provider: Roxann Raphael MD Summary Hospital Course Date Patient Seen: 05/27/24 Diagnoses: 39w0d gestation GDMA2 Hypothyroidism GBS negative Rh negative Hospital Course: The pt presented for IOL due to GDMA2. She received cytotec for induction, and then AROM was performed with clear fluid present. The progressed into active labor without additional augmentation. She had an epidural for pain control. She progressed to complete and had an uncomplicated of a viable baby boy. A 2nd degree perineal laceration was then repaired. , there were no complications. At the time of discharge she was voiding, ambulating, and passing flatus without difficulty. Her lochia was decreasing appropriately. Her pain was well controlled. She was with good latch. She will f/u in 6 weeks for check. She would like natural family planning for contraception. Peripartum Data Delivery Method: Natural Vaginal Laceration Description: Perineal - 2nd Degree Episiotomy description: None Procedures: Spontaneous vaginal delivery complications: none [place] 1: Gender: Male Disposition of : home Time Spent with Patient Time attestation: Total time spent providing and/or coordinating discharge services: Objective Labs 05/25/24 19:30 Labs: Laboratory Results - last 24 hr 05/27/24 06:20 Maternal Bleed Negative Exam Narrative Exam Narrative: Gen: NAD, sitting comfortably in bed, appears well CV: RRR, no murmurs Resp: clear to auscultation bilaterally Abd: soft, appropriately tender, fundus firm and below the umbilicus, nondistended Ext: no edema Discharge Plan Discharge Plan Patient Disposition: Home Discharge orders & Medications Prescriptions: New acetaminophen 325 mg Tablet 650 mg PO Q6HR PRN (Reason: Pain, Mild (1-3)) Qty: 60 0RF ibuprofen 600 mg Tablet 600 mg PO Q6HR PRN (Reason: Pain, Mild (1-3)) Qty: 60 0RF Continued levothyroxine 100 mcg tablet 100 mcg PO DAILY Qty: 30 2RF PNV cmb#95-ferrous fumarate-FA [ Multivitamins] Discontinued Humulin N NPH Insulin KwikPen 100 unit/mL (3 mL) insulin pen See Rx Instructions SUBCUT BID Qty: 15 3RF Rx Instructions: 3 units in am, 4 units at bedtime.subcutaneously twice a day; (DME) sharps container See Rx Instructions .Route .MEDSUPPLY Qty: 1 2RF Rx Instructions: for sharps disposal (DME) CGM Freestyle ivis 3 sensors See Rx Instructions .ROUTE .MEDSUPPLY Qty: 6 3RF Rx Instructions: Change sensor every 14 days (DME) Continuous Glucose Monitor sensors See Rx Instructions .ROUTE .MEDSUPPLY Qty: 3 3RF Rx Instructions: Dexcom 7 sensors, to be changed out every 10 days (DME) pen needle, diabetic [Comfort EZ Pen [place]] 33 gauge x 1/4 needle See Rx Instructions .Route Qty: 100 1RF Rx Instructions: As directed for twice daily insulin pen use insulin aspart U-100 100 unit/mL (3 mL) insulin pen See Rx Instructions .ROUTE .COMPLEX Patient Comments: 5 units am 4 units lunch and dinner Rx Instructions: variable dose dependent on blood sugar dose at mealtimes Follow up/Referrals: Roxann Raphael MD [Primary Care Provider] - 6 Weeks (Please follow up with Dr. Raphael for your 6 week appointment on July 07 @10:30 am 2024! Please arrive at 10:15am!) Diet/Activity/Treatments Diet: Diet as Tolerated and Regular Skin/Wound/Dressing Care Report to your healthcare provider any signs of infection, such as:: chills, fever, increased pain and unusual drainage Visit Report/Discharge Packet Instructions: DI for Hemorrhage, Fitness, DI for Labor and Delivery, Vaginal , DI for Depression Stand Alone Forms: Discharge: Care, Patient Portal/API, Stroke Signs & Symptoms Discharge Data Primary Care Provider: Roxann Raphael
[2024-05-27] MEDS: PRENATAL VIT,CALC/IRON/FOLIC 1 TABLET 1 TAB PO (09:13)
[2024-05-27] MEDS: RHO(D) IMMUNE GLOBULIN 1,500 UNIT SYRINGE 1500 UNIT IM (15:10)
== END 2024-05-27 15:35 | disposition home or self-care (01) | DRG 807 ==
PROVIDERS: Admitting Provider Family Medicine; PCP Family Medicine; Referring Provider Family Medicine; Visit Provider Family Medicine
DX: O24.424 Gestational diabetes mellitus in childbirth, insulin controlled (principal); Z37.0 Single live birth; Z3A.39 39 weeks gestation of pregnancy; O70.1 Second degree perineal laceration during delivery; Z79.4 Long term (current) use of insulin
CPT/HCPCS: 36415; 59050; 59200; 59400; 85025; 85461; 86850; 86870; 86900; 86901; G0379; J1815; J2590; J2790; J7050